=== PATIENT | male | born 1945 | race Caucasian/White ===

== ENCOUNTER 2021-03-10 10:05 | Outpatient (REF) | payer MEDICARE, OTHER, SELFPAY ==
[2021-03-10 12:17] LABS: PSA,Total (Free>4and<10) 1.05 ng/mL (0.00-4.00)
== END 2021-03-10 10:06 | disposition home or self-care (01) ==
LOC: HO.LAB 10:05
PROVIDERS: PCP Internal Medicine; Visit Provider Urology
DX: Z12.5 Encounter for screening for malignant neoplasm of prostate (principal); Z87.898 Personal history of other specified conditions
CPT/HCPCS: 36415; 84153

== ENCOUNTER → 2021-09-01 08:23 | Outpatient (BNVA) | payer MEDICARE, OTHER, SELFPAY | PROVIDERS: PCP Internal Medicine; Visit Provider Urology | DX: N40.1 Benign prostatic hyperplasia with lower urinary tract symptoms (principal); N13.8 Other obstructive and reflux uropathy | CPT/HCPCS: Q3014 ==

== ENCOUNTER 2022-08-27 12:21 | Outpatient (REF) | payer MEDICARE, OTHER, SELFPAY ==
[2022-05-17 07:12] VITALS: BP 116/70; BP 128/70
== END 2022-08-27 12:22 | disposition home or self-care (01) ==
LOC: HO.LAB 12:21
PROVIDERS: PCP Internal Medicine; Visit Provider Urology
DX: Z12.5 Encounter for screening for malignant neoplasm of prostate (principal); N40.1 Benign prostatic hyperplasia with lower urinary tract symptoms; N13.8 Other obstructive and reflux uropathy
CPT/HCPCS: 36415; 84153

== ENCOUNTER → 2022-09-04 10:40 | Outpatient (BNVA) | payer MEDICARE, OTHER, SELFPAY ==
[2022-05-17 07:12] VITALS: BP 116/70; BP 128/70
== END ==
PROVIDERS: PCP Internal Medicine; Visit Provider Urology
DX: N40.1 Benign prostatic hyperplasia with lower urinary tract symptoms (principal); N13.8 Other obstructive and reflux uropathy
CPT/HCPCS: 51798; 99212

== ENCOUNTER → 2022-11-08 10:32 | Outpatient (BNVA) | payer MEDICARE, OTHER, SELFPAY ==
[2022-05-17 07:12] VITALS: BP 116/70; BP 128/70
== END ==
PROVIDERS: PCP Internal Medicine; Visit Provider Urology
DX: N40.1 Benign prostatic hyperplasia with lower urinary tract symptoms (principal); N13.8 Other obstructive and reflux uropathy; R35.1 Nocturia; R97.20 Elevated prostate specific antigen [PSA]
CPT/HCPCS: 52000; 99212

== ENCOUNTER 2023-05-14 13:28 | Outpatient (AMB) | payer MEDICARE, OTHER, SELFPAY ==
[2022-05-17 07:12] VITALS: BP 116/70; BP 128/70
--- NOTE | 2023-05-14 13:38 | A.OFFVIS_ITS ---
Intake Intake Visit Reasons: 6m/PVR Intake Note: Patient is Present for PVR Follow Up. Urology Med: Terazosin Antibiotic Allergy: None Blood Thinner: None PVR: 313 ml [facility] Specialists Required: No Accompanied by: Self / Same As Patient Allergies No Known Allergies Allergy (Verified 05/14/23 13:38) Medication List - Last Reconciled 05/14/23 by John Meyer MD brinzolamide-brimonidine 1-0.2 % (Simbrinza) 0 drps ophthalmic (eye) bupropion HCl 100 mg PO QAM escitalopram oxalate 5 mg PO DAILY escitalopram oxalate mg PO latanoprost 0.005% 1 drp ophthalmic (eye) BEDTIME loteprednol etabonate 0.5% 0 drps ophthalmic (eye) terazosin 5 mg PO BEDTIME 90 days trazodone 50 mg PO BEDTIME HPI HPI Comments History of Present Illness Details Joel is a pleasant male. He is a patient of Dr. Lopez. He is seen for the following urologic conditions - elevated PSA - lower urinary tract symptoms Six month follow-up Has reduced coffee Continues with terazosin 5 mg Lower urinary tract symptoms Voiding progressive weakness of stream and nocturia Good response to terazosin 5 mg Prior therapy tamsulosin 0.4 11/20 cystoscopy small prostate PSA remains low 04/20 1.1, 08/23 1.2 PFSH Social History Patient Tobacco Use Status: Former Tobacco user Tobacco use type: Cigarette Review of Systems Const Denies chills and Denies fever(s) Card Reports no additional complaints and Denies syncope Resp Denies cough GI Denies abdominal pain and Denies heartburn Reports as per HPI and Denies change in libido Neuro Denies syncope Psych Denies change in libido Endo Denies change in libido Physical Exam Const General: cooperative, healthy appearing, comfortable and no acute distress Orientation/consciousness: patient oriented x3 HEENT Face and sinus: Yes normal facial exam Mouth: moist mucous membranes Neck Neck: Yes normal visual inspection, Yes full ROM and Yes trachea midline Chest Chest palpation & inspection: normal inspection of the chest Resp Effort & Inspection: normal respiratory effort, able to speak in complete sentences and no respiratory distress GI Inspection: Yes normal to inspection Back/Spine/Pelvis Cervical Spine: normal cervical lordosis Thoracic/Lumbar Spine: thoracic and lumbar spine normal to inspection Skin General skin exam: no rashes or lesions noted Neuro General: patient oriented x3, gait normal, tone normal and moves all extremities Extrem General: Yes normal to inspection and Yes capillary refill normal Office Procedures Post Void Residual Post Residual Void Post Void Residual (PVR): [id number] Void Residual by ultrasound Assessment & Plan Assessment & Plan (1) Nocturia more than twice per night: Code(s): R35.1 - Nocturia (2) BPH w urinary obs/LUTS: Code(s): N40.1 - Benign prostatic hyperplasia with lower urinary tract symptoms; N13.8 - Other obstructive and reflux uropathy Plan Six month follow-up Orders: Orders AMB Post Void Residual by ultrasound 05/14/23 N39.8 - Other specified disorders of urinary system Medications: Refilled terazosin 5 mg PO BEDTIME 90 caps 1RF 90 days N40.1 - Benign prostatic hyperplasia with lower urinary tract symptoms, N13.8 - Other obstructive and reflux uropathy, R35.0 - Frequency of micturition Patient Instructions: Imaging studies, laboratory and physical exam results were discussed and reviewed in detail. No major barriers to patient understanding were identified. An opportunity to ask questions regarding the treatment plan was provided. All questions were answered. The patient expressed understanding and agreement with the above treatment plan. The patient is aware they should contact our office by phone for worsening of th eir current condition or the appearance of new urologic symptoms. Compliance is encouraged with any medications and followup testing that is ordered. It is a privilege to participate in the urologic care of your patient. If you have any questions or concerns regarding treatment for the above conditions, or other urologic issues, please do not hesitate to contact me. The office telephone contact is [phone]. This note is constructed using voice recognition software. While every effort has been made to ensure accuracy special education coordinator errors may have been included. Yours sincerely, Dr John Meyer MD, [facility] - Urology Providers of Expert, Compassionate Care for the Genitourinary System Coding Level of Care Code Est Pt Level 3 (38905) Diagnoses Nocturia more than twice per night R35.1 BPH w urinary obs/LUTS N40.1; N13.8 CPT Codes Post Residual Void - PVR CPT Code: 67599-Bufw Void Residual by ultrasound ([id number])
== END 2023-05-14 16:17 | disposition home or self-care (01) ==
PROVIDERS: Visit Provider Urology
DX: N40.1 Benign prostatic hyperplasia with lower urinary tract symptoms (principal); R35.1 Nocturia; N13.8 Other obstructive and reflux uropathy
CPT/HCPCS: 99213

== ENCOUNTER → 2023-05-14 13:28 | Outpatient (BNVA) | payer MEDICARE, OTHER, SELFPAY ==
[2022-05-17 07:12] VITALS: BP 116/70; BP 128/70
== END ==
PROVIDERS: Visit Provider Urology
DX: N40.1 Benign prostatic hyperplasia with lower urinary tract symptoms (principal); N13.8 Other obstructive and reflux uropathy; R35.1 Nocturia
CPT/HCPCS: 51798; 99212

== ENCOUNTER 2023-11-13 13:29 | Outpatient (AMB) | payer MEDICARE, OTHER, SELFPAY ==
[2022-05-17 07:12] VITALS: BP 116/70; BP 128/70
--- NOTE | 2023-11-13 14:14 | A.OFFVIS_ITS ---
Intake Visit Reasons: 6M PVR Intake Note: Patient is Present for PVR Follow Up. Urology Med: Terazosin Antibiotic Allergy: None Blood Thinner: None PVR: 0 mL Farm Management Professor Required: No Accompanied by: Self / Same As Patient Allergies No Known Allergies Allergy (Verified 05/14/23 13:38) HPI Comments Details: Joel is a pleasant male. He is a patient of Dr. Lopez. He is seen for the following urologic conditions - elevated PSA - lower urinary tract symptoms Six month follow-up Continue good benefit from terazosin 5 mg Minimal nocturia PVR 0 today 12 month follow-up Lower urinary tract symptoms Voiding progressive weakness of stream and nocturia Good response to terazosin 5 mg Prior therapy tamsulosin 0.4 11/20 cystoscopy small prostate PSA remains low 04/20 1.1, 08/23 1.2 [facility] Social History Patient Tobacco Use Status: Former Tobacco user Tobacco use type: Cigarette Review of Systems Const Denies chills and Denies fever(s) Card Reports no additional complaints and Denies syncope Resp Denies cough GI Denies abdominal pain and Denies heartburn Reports as per HPI and Denies change in libido Neuro Denies syncope Psych Denies change in libido Endo Denies change in libido Physical Exam Const General: cooperative, healthy appearing, comfortable and no acute distress Orientation/consciousness: patient oriented x3 HEENT Face and sinus: Yes normal facial exam Mouth: moist mucous membranes Neck Neck: Yes normal visual inspection, Yes full ROM and Yes trachea midline Chest Chest palpation & inspection: normal inspection of the chest Resp Effort & Inspection: normal respiratory effort, able to speak in complete sentences and no respiratory distress GI Inspection: Yes normal to inspection Back/Spine/Pelvis Cervical Spine: normal cervical lordosis Thoracic/Lumbar Spine: thoracic and lumbar spine normal to inspection Skin General skin exam: no rashes or lesions noted Neuro General: patient oriented x3, gait normal, tone normal and moves all extremities Extrem General: Yes normal to inspection and Yes capillary refill normal Office Procedures Post Void Residual Post Residual Void Post Void Residual (PVR): 0 [id number] Void Residual by ultrasound Assessment & Plan Assessment & Plan (1) BPH w urinary obs/LUTS: Code(s): N40.1 - Benign prostatic hyperplasia with lower urinary tract symptoms; N13.8 - Other obstructive and reflux uropathy Category: Medical (2) Nocturia more than twice per night: Code(s): R35.1 - Nocturia Category: Medical Plan 12 month follow-up PVR Orders: Orders AMB Post Void Residual by ultrasound Today N39.8 - Other specified disorders of urinary system Patient Instructions: Imaging studies, laboratory and physical exam results were discussed and reviewed in detail. No major barriers to patient understanding were identified. An opportunity to ask questions regarding the treatment plan was provided. All questions were answered. The patient expressed understanding and agreement with the above treatment plan. The patient is aware they should contact our office by phone for worsening of their current condition or the appearance of new urologic symptoms. Compliance is encouraged with any medications and followup testing that is ordered. It is a privilege to participate in the urologic care of your patient. If you have any questions or concerns regarding treatment for the above conditions, or other urologic issues, please do not hesitate to contact me. The office telephone contact is [phone]. This note is constructed using voice recognition software. While every effort has been made to ensure accuracy dietitian errors may have been included. Yours sincerely, Dr John Meyer MD, [facility] - Urology Providers of Expert, Compassionate Care for the Genitourinary System Coding Level of Care Code Est Pt Level 3 (59357) Diagnoses BPH w urinary obs/LUTS N40.1; N13.8 Nocturia more than twice per night R35.1 CPT Codes Post Residual Void - PVR CPT Code: 57596-Klqy Void Residual by ultrasound ([id number])
== END 2023-11-13 14:35 | disposition home or self-care (01) ==
PROVIDERS: PCP Internal Medicine; Visit Provider Urology
DX: N40.1 Benign prostatic hyperplasia with lower urinary tract symptoms (principal); N13.8 Other obstructive and reflux uropathy; R35.1 Nocturia
CPT/HCPCS: 99213

== ENCOUNTER → 2023-11-13 13:29 | Outpatient (BNVA) | payer MEDICARE, OTHER, SELFPAY ==
[2022-05-17 07:12] VITALS: BP 116/70; BP 128/70
== END ==
PROVIDERS: PCP Internal Medicine; Visit Provider Urology
DX: N40.1 Benign prostatic hyperplasia with lower urinary tract symptoms (principal); N13.8 Other obstructive and reflux uropathy; R35.1 Nocturia; R97.20 Elevated prostate specific antigen [PSA]; Z79.899 Other long term (current) drug therapy
CPT/HCPCS: 51798; 99212

== ENCOUNTER 2024-08-07 06:23 | Day surgery (SDC) | payer MEDICARE, OTHER, SELFPAY ==
[2022-05-17 07:12] VITALS: BP 116/70; BP 128/70
--- OUTSIDE RECORDS SUMMARY | 2024-07-10 10:22 | XMS_ITS ---
Author Organization [facility] Address [address] [place] [address] Care Team Providers Care Oceanologist Name Role Phone Russell Lopez MD Primary Care Provider Unavail able Amador Bower Unavailable [phone] ALLERGIES Allergen (clinical drug ingredient) Drug/Non Drug Allergy documented on EMR Reaction Allergy Type Onset Date Status opioids (uncoded) Unknown Allergy Ac tive REASON FOR VISIT Patient presents today for a recall colonoscopy MEDICATIONS Medication SIG (Take, Route, Frequency, Duration) Notes Start Date End Date Status Simbrinza 1-0.2 % 1 drop into affected eye Ophthalmic Three times a day Active Escitalopram Oxalate 10 MG Oral for 90 Active traZODone HCl 50 MG TAKE 1 TABLET BY TRINA TH EVERY DAY AT BEDTIME NEEDED 90 DAYS Oral for 90 Active Multivitamin - as directed Orally prn Active ARIPiprazole 10 MG Oral for 90 Active Loteprednol Etabonate 0.5 % Ophthalmic for 37 Active SOCIAL HISTORY Tobacco Use: Social History Observation Description Date Details (start date - stop date) Former Smoker NA - NA Sex Assigned At : Social History Observation Description Sex Assigned At Unknown Tobacco Use/Smoking Question Answer Notes Patient is a former smoker When did you start smoking? teenager years How long has it been since you last smoked? > 10 years Alcohol Screen Question Answer Notes Did you have a drink contain ing alcohol in the past year? Yes How often did you have a dri nk containing alcohol in the past year? 2 to 3 times a week (3 points) How many drinks did you have on a typical day when you were drinking in the past year? 1 or 2 drinks (0 point) How often did you have 6 or more drinks on one occasion in the past year? Never (0 point) Points 3 Interpretation Negative PROBLEMS Problem Type ICD Code Onset Dates Problem Status W/U Status Risk SNOMED Code Notes Problem History of adenomatous polyp of colon (Z86.010) Active confirmed History of adenomatous polyp of colon (284947092) Problem Encounter for other preprocedural examination (Z01.818) Active confirmed Pre-procedure evaluation check (054390909) VITAL SIGNS BMI 22.16 kg/m2 04/02/2024 Blood pressure systolic 00 mm Hg 04/02/20 24 Blood pressure diastolic 00 mm Hg 024 Height 73 in 04/02/2024 Weight 168 lbs 04/02/2024 Encounters Encounter Location Date Provider Diagnosis [facility] [address] [place] [address] 04/02/2024 Amador Bower Encounter for screen ing for malignant neoplasm of colon Z12.11 ; History of adenomatous polyp of colon Z86.010 and Encounter for other preprocedural examination Z01.818 ASSESSMENTS Encounter Date Diagnosis Assessment Notes Treatment Notes Treatment Clinical Notes 04/02/2024 Encounter for screening for malignant neoplasm of colon (ICD-10 - Z12.11) Let me know if the Mannequin Maker wants you to have antibiotics for the colonoscopy 04/02/2024 History of adenomatous polyp of colon (ICD-10 - Z86.010) 04/02/2024 Encounter for other preprocedural examination (ICD-10 - Z01.818) PLAN OF TREATMENT Treatment Notes Assessment Notes Encounter for screening for malignant neoplasm of colon Let me know if the Mannequin Maker wants yo u to have antibiotics for the colonoscopy Future Test Test Name Order Date COLONOSCOPY 04/02/2024 Next Appt Details Follow Up: prn, Reason: Provider Name:Amador Joshi Bower , 08/07/2024 08:30:00 AM, [address] [facility] , [place], [place], [phone], Progress Notes * Examination Category Sub-Category Detail Notes General Examination GENERAL APPEARANCE: pleasant , well nourished, well developed, in no acute distress HEAD: EYES: sclera non-icteric EARS: NOSE: THROAT: NECK/THYROID: no cervical lymphade nopathy, neck supple HEART: S1, S2 normal CHEST: LUNGS: clear to auscultatio n bilaterally ABDOMEN: normal bowel sounds, no guarding or rigidity, no guarding or rigidity, no masses palpable, soft, nontender, nondistended NEUROLOGIC: alert and oriented SKIN: nonjaundiced, no spi messi angiomata EXTREMITIES: no edema PERIPHERAL PULSES: BACK: BREASTS: MUSCULOSKELETAL: MALE GENITOURINARY: LYMPH NODES: RECTAL EXAM: FEMALE GENITOURINARY: ORAL CAVITY: mucosa moist
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
--- OUTSIDE RECORDS SUMMARY | 2024-07-10 10:22 | XMS_ITS ---
Author Organization [facility] Address [address] [place] [phone] Care Team Providers Care Poultry Debeaker Name Role Phone Russell Lopez MD Primary Care Provider Unavail able Amador Bower Unavailable [phone] REASON FOR VISIT no antibiotics Encounters Encounter Location Date Provider Diagnosis [facility] [address] [facility] [address] [place] [phone] 04/14/2024 Amador Bower PLAN OF TREATMENT Next Appt Details Provider Name:Amador Bower , 08/07/2024 08:30:00 AM, [address] [place] [address] , [place], [place], [phone],
--- OUTSIDE RECORDS SUMMARY | 2024-07-10 10:23 | XMS_ITS ---
Author Organization Russell Lopez MD Address [address] [phone] Care Team Providers Care Silk Screen Frame Assembler Name Role Phone Russell Lopez Primary Care Provider REASON FOR VISIT Test results Encounters Encounter Location Date Provider Diagnosis Russell Lopez MD [address] [place] [address] [place] [phone] 01/21/2024 Russell Lopez Plan Of Treatment Next Appt Details Provider Name:Russell Lopez , 07/16/2024 01:30:00 PM, [address] [place] [address], [phone], Provider Name:Russell Lopez , 01/21/2025 01:00:00 PM, [address] [place] [address], [phone], Progress Notes * Joel WHITEDOB:1945 (78 yo M)Acc No.[id number]:01/21/2024 Patient:?CHRISTOPHERJoseJoel :1945???Age:78 Y???Sex:Male Address:[address] [place], [place] [address] [place], [address] * true * Date:? Generated for Dhruv holt/Damien/eTransmitting on:?07/10/2024 10:22 AM EST
--- OUTSIDE RECORDS SUMMARY | 2024-07-10 10:23 | XMS_ITS | Patient Health Record ---
Author Organization [facility] Address [address] [place] [address] [phone] Care Team Providers Care Extract Puller Name Role Phone [facility] Primary Care Provider Allergies Allergen (clinical drug ingredient) Drug/Non Drug Allergy documented on EMR Reaction Allergy Type Onset Date Status Opiates (uncoded) Nausea, Vomiting Allergy Active Results Component Value Reference Range Notes Urinalysis, Complete-[id number] Reviewed date:01/21/2024 08:28:55 AM Interpretation: Performing Lab:[facility] [place], [facility] [place], [place], Phone - [phone], Director - [employer] Notes/Report: Specific [place] 1.018 1.005-1.030 pH 6.0 5.0-7.5 Urine-Color Yellow Yellow Appearance Clear Clear WBC Esterase Negative Negative Protein Negative Negative/Trace Glucose Negative Negative Ketones Negative Negative Occult Blood Negative Negative Bilirubin Negative Negative Urobilinogen,Semi-Qn 0.2 0.2-1.0 mg/dL Nitrite, Urine Negative Negative Microscopic Examination Micr oscopic follows if indicated. Microscopic Examination See below: Micr oscopic was indicated and was performed. WBC None seen 0 - 5 /hpf RBC 0-2 0 - 2 /hpf Epithelial Cells (non renal) None seen 0 - 10 /hpf Casts None seen None seen /lpf Bacteria None seen None seen/Few CBC With Differential/Platel et-[id number] Reviewed date:01/21/2024 08:28:55 AM Interpretation: Performing Lab:[facility] [place], [address] [place], [place], Phone - [phone], Director - [employer] Notes/Report: WBC 6.0 3.4-10.8 x10E3/uL RBC 3.69 4.14-5.80 x10E6/uL Hemoglobin 12.5 13.0-17.7 g/dL Hematocrit 37.6 37.5-51.0 % MCV 102 79-97 fL MCH 33.9 26.6-33.0 pg MCHC 33.2 31.5-35.7 g/dL RDW 12.4 11.6-15.4 % Platelets 197 150-450 x10E3/uL Neutrophils 63 Not Estab. % Lymphs 24 Not Estab. % Monocytes 9 Not Estab. % Eos 3 Not Estab. % Basos 1 Not Estab. % Neutrophils (Absolute) 3.8 1.4-7.0 x10E3/uL Lymphs (Absolute) 1.5 0.7-3.1 x10E3/uL Monocytes(Absolute) 0.6 0.1-0.9 x10E3/uL Eos (Absolute) 0.2 0.0-0.4 x10E3/uL Baso (Absolute) 0.1 0.0-0.2 x10E3/uL Immature Granulocytes 0 Not Estab. % Immature Grans (Abs) 0.0 0.0-0.1 x10E3/uL Prostate-Specific Ag-[id number] Reviewed date:01/21/2024 08:28:55 AM Interpretation: Performing Lab:[facility] [place], [address] [place] [address], Phone - [phone], Director - [facility] Notes/Report: Prostate Specific Ag 1.6 0.0-4.0 ng/mL Nav ECLIA methodology. . According to the [place] [employer], Serum PSA should decrease and remain at undetectable levels after radical prostatectomy. The AUA defines biochemical recurrence as an initial PSA value 0.2 ng/mL or greater followed by a subsequent confirmatory PSA value 0.2 ng/mL or greater. Values obtained with different assay methods or kits cannot be used interchangeably. Results cannot be interpreted as absolute evidence of the presence or absence of malignant disease. Vitamin D, 43-Naqnrdb-[id number] Reviewed date:01/21/2024 08:28:55 AM Interpretation: Performing Lab:[facility] [place], [address] [facility], Phone - [phone], Director - MDJodry Notes/Report: Vitamin D, 25-Hydroxy 47.6 30.0-100.0 ng/mL Vitamin D deficiency has been defined by the [place] [employer] and an Endocrine Society practice guideline as a level of serum 25-OH vitamin D less than 20 ng/mL (1,2). The Endocrine Society went on to further define vitamin D insufficiency as a level between 21 and 29 ng/mL (2). 1. IOM ([place] [employer]). 2010. Dietary reference intakes for calcium and D. [place]: The National Academies Press. 2. Tommie MF, Neelima JOYNER, Etelvina REAVES, et al. Evaluation, treatment, and prevention of vitamin D deficiency: an Endocrine Society clinical practice guideline. JCEM. 2010; 96(7):1911-30. Varicella-Zoster V Ab, IgG-0 96603 Reviewed date:01/21/2024 08:28:54 AM Interpretation: Performing Lab:[facility], [address] [place] [address], Phone - [phone], Director - MDDididry Notes/Report: Varicella Zoster IgG 3575 Immune >165 index Negative <135 Equivocal 135 - 165 Positive >165 A positive result generally indicates exposure to the pathogen or administration of specific immunoglobulins, but it is not indication of active infection or stage of disease. B-Type Natriuretic Peptide-1 79965 Reviewed date:01/21/2024 08:28:55 AM Interpretation: Performing Lab:[facility], [address] [place] [address], Phone - [phone], Director - [employer] Notes/Report: B-Type Natriuretic Peptide 100.0 0.0-100.0 pg/m L Siemens ADVIA Centaur XP methodology Comp. Metabolic Panel (14)-3 Reviewed date:01/21/2024 08:28:55 AM Interpretation: Performing Lab:[facility] [place], [address] [place] [address], Phone - [phone], Director - MDJodry Notes/Report: Glucose 88 70-99 mg/dL BUN 20 8-27 mg/dL Creatinine 0.96 0.76-1.27 mg/dL eGFR 81 >59 mL/min/1.73 BUN/Creatinine Ratio 21 10-24 Sodium 142 134-144 mmol/L Potassium 4.5 3.5-5.2 mmol/L Chloride 102 96-106 mmol/L Carbon Dioxide, Total 22 20-29 mmol/L Calcium 9.4 8.6-10.2 mg/dL Protein, Total 7.2 6.0-8.5 g/dL Albumin 4.2 3.8-4.8 g/dL Globulin, Total 3.0 1.5-4.5 g/dL Bilirubin, Total 0.5 0.0-1.2 mg/dL Alkaline Phosphatase 96 44-121 IU/L AST (SGOT) 24 0-40 IU/L ALT (SGPT) 19 0-44 IU/L LP+Non-HDL Cholesterol-21885 5 Reviewed date:01/21/2024 08:28:55 AM Interpretation: Performing Lab:[facility] [address] [place] [address], Phone - [phone], Director - [employer] Notes/Report: Cholesterol, Total 142 100-199 mg/dL Triglycerides 69 0-149 mg/dL HDL Cholesterol 51 >39 mg/dL VLDL Cholesterol Jordan 14 5-40 mg/dL LDL Chol Calc (NIH) 77 0-99 mg/dL Non-HDL Cholesterol 91 0-129 mg/dL HCV Antibody-[id number] Reviewed date:01/21/2024 08:28:55 AM Interpretation: Performing Lab:[facility] [address] [place] [address], Phone - [phone], Director Primo Peck Notes/Report: Hep C Virus Ab Non Reactive Non Reactive HCV antibody alone does not differentiate between previously resolved infection and active infection. Equivocal and Reactive HCV antibody results should be followed up with an HCV RNA test to support the diagnosis of active HCV infection. PDF Report Reviewed date:01/21/2024 08:28:55 AM Interpretation: Performing Lab:[facility] [address] [place] [address], Phone - [phone], Director Primo Peck Notes/Report: PDF Report Reviewed date:10/25/2023 08:38:58 AM Interpretation: Performing Lab:[facility] [place] [address] [place] [address], Phone - [phone], Director Primo Peck Notes/Report: PDF Report Reviewed date:01/21/2024 08:28:54 AM Interpretation: Performing Lab:[facility] [place] [address] [place] [address], Phone - [phone], Director Primo Peck Notes/Report: CBC With Differential/Platel et-[id number] Reviewed date:10/25/2023 08:38:58 AM Interpretation: Performing Lab:[facility] [place], [address] [facility], [place], Phone - [phone], Director - [employer] Notes/Report: WBC 8.9 3.4-10.8 x10E3/uL RBC 3.68 4.14-5.80 x10E6/uL Hemoglobin 12.3 13.0-17.7 g/dL Hematocrit 37.1 37.5-51.0 % MCV 101 79-97 fL MCH 33.4 26.6-33.0 pg MCHC 33.2 31.5-35.7 g/dL RDW 12.7 11.6-15.4 % Platelets 207 150-450 x10E3/uL Neutrophils 62 Not Estab. % Lymphs 22 Not Estab. % Monocytes 12 Not Estab. % Eos 2 Not Estab. % Basos 1 Not Estab. % Neutrophils (Absolute) 5.6 1.4-7.0 x10E3/uL Lymphs (Absolute) 2.0 0.7-3.1 x10E3/uL Monocytes(Absolute) 1.0 0.1-0.9 x10E3/uL Eos (Absolute) 0.2 0.0-0.4 x10E3/uL Baso (Absolute) 0.1 0.0-0.2 x10E3/uL Immature Granulocytes 1 Not Estab. % Immature Grans (Abs) 0.0 0.0-0.1 x10E3/uL Vitamin D, 84-Vyrvrlo-[id number] Reviewed date:10/25/2023 08:38:58 AM Interpretation: Performing Lab:[facility] [place], [address] [facility], [place], Phone - [phone], Director - [employer] Notes/Report: Vitamin D, 25-Hydroxy 34.9 30.0-100.0 ng/mL Vitamin D deficiency has been defined by the [place] [employer] and an Endocrine Society practice guideline as a level of serum 25-OH vitamin D less than 20 ng/mL (1,2). The Endocrine Society went on to further define vitamin D insufficiency as a level between 21 and 29 ng/mL (2). 1. IOM ([place] [employer]). 2010. Dietary reference intakes for calcium and D. [place]: The National Academies Press. 2. Tommie DILLON, Neelima [place], Etelvina REAVES, et al. Evaluation, treatment, and prevention of vitamin D deficiency: an Endocrine Society clinical practice guideline. JCEM. 2010; 96(7):1911-30. PDF Report Reviewed date:01/21/2024 08:28:54 AM Interpretation: Performing Lab:[facility] [place], [address] [place] [address], Phone - [phone], Director - [facility] Notes/Report: Iron and TIBC-[id number] Reviewed date:10/25/2023 08:38:57 AM Interpretation: Performing Lab:[facility] [place], [address] [place] [address], Phone - [phone], Director - [facility] Notes/Report: Iron Bind.Cap.(TIBC) 283 250-450 ug/dL UIBC 245 111-343 ug/dL Iron 38 38-169 ug/dL Iron Saturation 13 15-55 % Vitamin [id number] Reviewed date:10/25/2023 08:38:58 AM Interpretation: Performing Lab:[facility] [place], [address] [place] [address], Phone - [phone], Director - [facility] Notes/Report: Vitamin B12 837 005-9760 pg/mL Haptoglobin-[id number] Reviewed date:10/25/2023 08:38:58 AM Interpretation: Performing Lab:[facility] [place], [address] [place] [address], Phone - [phone], Director - [facility] Notes/Report: Haptoglobin 194 34-355 mg/dL Immunofixation, Serum-[id number] Reviewed date:10/25/2023 08:38:58 AM Interpretation: Performing Lab:[facility] [place], [address] [place] [address], Phone - [phone], Director - [facility] Notes/Report: Immunofixation Result, Serum Polyclonal increase detected in one or more immunoglobulins. Immunoglobulin G, Qn, Serum 1221 514-0732 mg/d L Immunoglobulin A, Qn, Serum 495 61-437 mg/dL Immunoglobulin M, Qn, Serum 101 15-143 mg/dL Folate (Folic Acid), Serum-0 13742 Reviewed date:10/25/2023 08:38:58 AM Interpretation: Performing Lab:[facility] [place], Phone - [phone], Director [facility] Notes/Report: Folate (Folic Acid), Serum 9.5 >3.0 ng/mL A serum folate concentration of less than 3.1 ng/mL is considered to represent clinical deficiency. Ferritin-047645 Reviewed date:10/25/2023 08:38:58 AM Interpretation: Performing Lab:[facility], Phone - [phone], [facility] Notes/Report: Ferritin 163 30-400 ng/mL Reticulocyte Count-[id number] Reviewed date:10/25/2023 08:38:58 AM Interpretation: Performing Lab:[facility], Phone - [phone], [facility] Notes/Report: Reticulocyte Count 1.6 0.6-2.6 % B-Type Natriuretic Peptide-1 31942 Reviewed date:10/25/2023 08:38:58 AM Interpretation: Performing Lab:[address], Phone - [phone], [facility] Notes/Report: B-Type Natriuretic Peptide 112.7 0.0-100.0 pg/m L Siemens ADVIA Centaur XP methodology Comp. Metabolic Panel (14)-3 73725 Reviewed date:10/25/2023 08:38:58 AM Interpretation: Performing Lab:[facility] [address], Phone - [phone], [facility] Notes/Report: Glucose 92 70-99 mg/dL BUN 23 8-27 mg/dL Creatinine 0.93 0.76-1.27 mg/dL eGFR 85 >59 mL/min/1.73 BUN/Creatinine Ratio 25 10-24 Sodium 141 134-144 mmol/L Potassium 4.5 3.5-5.2 mmol/L Chloride 102 96-106 mmol/L Carbon Dioxide, Total 25 20-29 mmol/L Calcium 9.1 8.6-10.2 mg/dL Protein, Total 7.2 6.0-8.5 g/dL Albumin 4.2 3.8-4.8 g/dL Globulin, Total 3.0 1.5-4.5 g/dL A/G Ratio 1.4 1.2-2.2 Bilirubin, Total 0.5 0.0-1.2 mg/dL Alkaline Phosphatase 83 44-121 IU/L AST (SGOT) 21 0-40 IU/L ALT (SGPT) 16 0-44 IU/L LP+Non-HDL Cholesterol-54939 5 Reviewed date:10/25/2023 08:38:58 AM Interpretation: Performing Lab:[facility] [place], [address], [place], Phone - [phone], Director - [employer] Notes/Report: Cholesterol, Total 144 100-199 mg/dL Triglycerides 117 0-149 mg/dL HDL Cholesterol 55 >39 mg/dL VLDL Cholesterol Jordan 21 5-40 mg/dL LDL Chol Calc ([facility]) 68 0-99 mg/dL Non-HDL Cholesterol 89 0-129 mg/dL Reason For Referral No Information Medications Medication SIG (Take, Route, Frequency, Duration) Notes Start Date End Date Status traZODone HCl 50 MG TAKE 1 TABLET BY TRINA TH EVERY DAY AT BEDTIME PRN for 90 days Active Latanoprost 0.005 % PLACE 1 DROP INTO TH E LEFT EYE NIGHTLY AT BEDTIME. Ophthalmic for 90 Unknown Aspirin 81 81 MG 1 tablet Orally Once a day Active Metoprolol Tartrate 25 MG 1 tablet with food Orally Twice a day Unknown ARIPiprazole 10 MG TAKE 1 TABLET BY TRINA TH EVERY DAY for 90 Active [facility] Formula - as directed Orally Active Loteprednol Etabonate 0.5 % INSTILL 1 DROP INTO EACH EYE DAILY. Ophthalmic for 37 Active Escitalopram Oxalate 10 MG TAKE 1 TABLET BY MOUTH EVERY DAY FOR 30 DAYS for 90 Active Omeprazole 20 MG TAKE 1 CAPSULE BY MO [facility] 30 MINUTES BEFORE THE MORNING MEAL for 90 Not-Taking Simbrinza 1-0.2 % PLACE 1 DROP INTO TH E LEFT EYE 2 (TWO) TIMES A DAY. Ophthalmic for 60 Active Ferrous Sulfate 325 (65 Fe) MG 1 tablet Orally Once a day for 30 day(s) 03/15/2022 Active Tamsulosin HCl 0.4 MG TAKE ONE CAPSULE B Y MOUTH ONCE DAILY for 90 Active Immunizations Vaccine Route Administration Date Status Comme nts *Influenza, High Dose Seasonal, Quadrivatent Unknown 06/17/2022 Administered *Influenza, High Dose Seasonal, Quadrivatent Unknown 04/09/2023 Administered *Pneumococcal polysaccharide PPV23 IM Intramuscular 10/17/2018 Administered *PREVNAR 20 IM Intramuscular 01/16/2024 Administered COVID Spikevax Moderna Unknown 04/09/2023 Administered COVID-19 Moderna BiValent Booster Unknown 06/17/2022 Administered FIISP-19-Xaqrkyh Vaccine Unknown 06/18/2021 Administered MKHBT-36-Ckdiki Vaccine Unknown 09/16/2020 Administered ZEJUK-53-Dvnapq Vaccine Unknown 10/07/2020 Administered Influenza (Fluad) Unknown 03/18/2020 Administered Influenza (Fluad) Unknown 06/18/2021 Administered Influenza (split), 3 yrs and above Unknown 05/17/2017 Administered Influenza (split), 3 yrs and above IM Intramuscular 03/17/2018 Administered Mfd by [employer] Pneumococcal polysaccharide PCV 13 Unknown 05/17/2017 Administered Td (adult) preservative free IM Intramuscular 12/20/2020 Administered Social History Tobacco Use: Social History Observation Description Date Details (start date - stop date) Former Smoker NA - NA AUDIT-C (Standard) Question Answer Notes Did you have a drink contain ing alcohol in the past year? Yes How often did you have six o r more drinks on one occasion in the past year? Never (0 point) How many drinks did you have on a typical day when you were drinking in the past year? 1 or 2 drinks (0 point) How often did you have a dri nk containing alcohol in the past year? 2 to 4 times a month (2 points) Points 2 Interpretation Negative Tobacco Control (Standard) Question Answer Notes Tobacco use: Former smoker How long has it been since you last smoked? 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 Problem Sensorineural hearing loss of bilateral ears (disorder) (584442079) Sensorineural hearing loss, bilateral (H90.3) Active confirmed Problem Complete atrioventricular block (10629197) Atrioventricular block, complete (I44.2) Active confirmed Problem Chronic diastolic heart failure (699776442) Chronic diastolic (congestive) heart failure (I50.32) Active confirmed Problem Gastro-esophageal reflux disease without esophagitis (622954460) Gastro-esophageal reflux disease without esophagitis (K21.9) Active confirmed Problem Chondromalacia of patella (91706659) Chondromalacia patellae, 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) Active confirmed Problem Congenital stenosis of aortic valve (53783805) 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) Active confirmed Problem History of polyp of colon (situation) (156832359) Personal history of colonic polyps (Z86.010) Active confirmed Problem Corneal transplant (57879714) Corneal transplant status (Z94.7) Active confirmed Problem Cardiac pacemaker in situ (079383965) Presence of cardiac pacemaker (Z95.0) Active confirmed Problem Finding of hearing aid (462214406) Presence of external hearing-aid (Z97.4) Active confirmed Problem Benign prostatic hypertrophy without outflow obstruction (859215698) Benign prostatic hyperplasia without lower urinary tract symptoms (N40.0) Active confirmed Vital Signs Heart Rate 67 /min 01/16/2024 Temperature 96.9 degrees Fahrenheit 01/16/2024 Respiratory Rate 98 /min 10/10/2023 Oximetry 98 % 01/16/2024 Blood pressure diastolic 60 mm Hg 01/16/2024 Height 71 in 01/16/2024 Blood pressure systolic 114 mm Hg 01/16/2024 Weight 163.6 lbs 01/16/2024 BMI 22.82 kg/m2 01/16/2024 Encounters Encounter Location Date Provider Diagnosis Russell Lopez MD [address] [id number] 10/10/2023 Russell Lopez Major depressive disorder, single episode, moderate F32.1 ; Chronic diastolic (congestive) heart failure I50.32 ; Mixed hyperlipidemia E78.2 ; Vitamin D deficiency, unspecified E55.9 ; Anemia, unspecified D64.9 and Upper abdominal pain, unspecified R10.10 Russell Lopez MD [address] [id number] 01/16/2024 Russell Lopez Major depressive disorder, single episode, moderate F32.1 ; Encounter for general adult medical examination without abnormal findings Z00.00 ; Chronic diastolic (congestive) heart failure I50.32 ; Mixed hyperlipidemia E78.2 ; Atrioventricular block, complete I44.2 ; Presence of cardiac pacemaker Z95.0 ; Corneal transplant status Z94.7 ; Personal history of colonic polyps Z86.010 ; Vitamin D deficiency, unspecified E55.9 ; Encounter for screening for malignant neoplasm of colon Z12.11 ; Encounter for screening for malignant neoplasm of prostate Z12.5 ; Encounter for screening for cardiovascular disorders Z13.6 ; Encounter for immunization Z23 ; Encounter for antibody response examination Z01.84 ; Encounter for screening for other viral diseases Z11.59 ; Sensorineural hearing loss, bilateral H90.3 and Presence of external hearing-aid Z97.4 Russell Lopez MD [address] [id number] 01/21/2024 Russell Lopez MD [address] [id number] 10/19/2023 Russell Lopez Assessments Encounter Date Diagnosis (ICD Code) Assessment Notes Treatment Notes Treatment Clinical Notes Section Notes 10/10/2023 Major depressive disorder, single episode, moderate (ICD-10 - F32.1) He feels better with current medical therapy. He feels mood is doing well. And continue current therapy. 10/10/2023 Chronic diastolic (congestive) heart failure (ICD-10 - I50.32) He still has some shortness of breath but this has improved after his valve surgery. Some of that may have been due to his anemia. Can recheck for BNP to verify that this is normal. It had been normal in the past but had been slowly increasing. 01/16/2024 Major depressive disorder, single episode, moderate (ICD-10 - F32.1) Stable with current medical therapy. Continue same 01/16/2024 Encounter for general adult medical examination without abnormal findings (ICD-10 - Z00.00) General healthcare up-to-date. Check routine labs. Healthcare proxy and MOST form already on file 01/16/2024 Chronic diastolic (congestive) heart failure (ICD-10 - I50.32) Still at present. He has some fatigue with activity. This may or may not be heart failure related. He does not have coronary disease. Can recheck BNP to verify that this is stable and if it is not then this fatigue may be related to heart failure. 10/10/2023 Mixed hyperlipidemia (ICD-10 - E78.2) Stable on prior labs as reviewed. He does not have any severe coronary artery disease but ideally LDL less than 70 would be preferred 01/16/2024 Mixed hyperlipidemia (ICD-10 - E78.2) Stable on prior labs as reviewed with LDL less than 70. Recheck status 10/10/2023 Vitamin D deficiency, unspecified (ICD-10 - E55.9) Fair control on prior labs as reviewed. He could consider vitamin D supplementation for goal level of 50+ 01/16/2024 Atrioventricular block, complete (ICD-10 - I44.2) Stable and unchanged 10/10/2023 Anemia, unspecified (ICD-10 - D64.9) His perioperative blood loss anemia has improved but his MCV remains elevated. Can recheck combination of therapy for iron deficiency for blood loss anemia as well as B12 and folic acid for the elevated MCV. 10/10/2023 Upper abdominal pain, unspecified (ICD-10 - R10.10) A few days ago he had some abdominal discomfort that he describes along the diaphragm. It eventually subsided. There is no associated symptoms such as nausea vomiting heartburn or diarrhea. He still feels this on occasion when he has a hiccup. This is probably related to a upper GI issue rather than a colon issue. Can consider upper GI series to see if there is a hiatal hernia that may explain this but he would like to hold off and see what happens in terms of his symptoms. 01/16/2024 Presence of cardiac pacemaker (ICD-10 - Z95.0) Stable at present. He does have some fatigue with activity. This may be due to his heart failure versus other etiologies. He does not have coronary disease on prior catheterization therefore it is possible that his pacemaker may need to be reevaluated to see if it has adequate rate increase with activity. He may want to have his pacemaker reprogrammed for a higher rate with activity to see if that helps him feel better. 01/16/2024 Corneal transplant status (ICD-10 - Z94.7) Stable and unchanged at present 01/16/2024 Personal history of colonic polyps (ICD-10 - Z86.010) He is pending consultation and colonoscopy this year 01/16/2024 Vitamin D deficiency, unspecified (ICD-10 - E55.9) Stable on prior labs as reviewed. Continue vitamin D supplementation for goal level of 30+ and if possible 50+ 01/16/2024 Encounter for screening for malignant neoplasm of colon (ICD-10 - Z12.11) Colon cancer screening pending 01/16/2024 Encounter for screening for malignant neoplasm of prostate (ICD-10 - Z12.5) Can check PSA has prostate cancer screening realizing the limitation of this test as a screening test 01/16/2024 Encounter for screening for cardiovascular disorders (ICD-10 - Z13.6) Blood pressure is stable. Can check for comorbidity of hyperlipidemia and hyperglycemia to further assess risk. 01/16/2024 Encounter for immunization (ICD-10 - Z23) Vaccines up to date 01/16/2024 Encounter for antibody response examination (ICD-10 - Z01.84) He would be considered immune to rubeola by virtue of his age. 01/16/2024 Encounter for screening for other viral diseases (ICD-10 - Z11.59) Can screen for hepatitis C as per general recommendation. Of note he thinks he never had chickenpox and it would like to get a shingles vaccine. Can check varicella titer to see if this is necessary. If he is not immune to varicella then he will need a chickenpox vaccine 01/16/2024 Sensorineural hearing loss, bilateral (ICD-10 - H90.3) Stable and unchanged. He continues to use hearing aids 01/16/2024 Presence of external hearing-aid (ICD-10 - Z97.4) Stable and unchanged 10/10/2023 Other This note was created with voice dictation recognition software and may contain errors of grammar and syntax. Also labs were reviewed with patient. 01/16/2024 Other This note was created with voice dictation recognition software and may contain errors of grammar and syntax. Also labs were reviewed with patient. Plan Of Treatment Pending Test Test Name Order Date PFTS with DLCO 06/30/2019 25OH VITAMIN D 01/08/2022 COMPLETE CBC WITH DIFF 01/08/2022 COMPLETE CBC WITH DIFF 02/25/2022 COMPLETE URINALYSIS 01/08/2022 COMPREHENSIVE METABOLIC PANEL 01/08/2022 FERRITIN 02/25/2022 FOLIC ACID 02/25/2022 HAPTOGLOBIN 02/25/2022 HEMOGLOBIN A1C 01/08/2022 IMMUNOFIXATION SERUM 02/25/2022 IRON & TIBC 02/25/2022 LIPID PANEL W REFLEX TO DLDL 01/08/2022 PSA 01/08/2022 RETICULOCYTE COUNT 02/25/2022 VITAMIN B12 02/25/2022 ANTI-HEPATITIS C W/RFLX HCV QNT 01/09/20 Next Appt Details Provider Name:Russell Lopez , 07/16/2024 01:30:00 PM, [address] [place] [address], [phone], Provider Name:Russell Lopez , 01/21/2025 01:00:00 PM, [address] [place] [address], [address], [phone], Insurance Providers Payer Name Payer Address Payer Phone Subscriber Number Group Number Insured Name Patient Relationship to Insured Coverage Start Date Coverage End Date MEDICARE [address] [place] [phone] [id number] Joel Martinez Self - patient is the insured [facility] [address] [place] [address] [id number] Joel Martinez Self - patient is the insured Medical (General) History Medical History History ICD Code Benign prostatic hyperplasia without low er urinary tract symptoms N40.0 Fuchs' heterochromic cyclitis, 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 0 Unspecified fracture of sacrum, initial encounter for closed fracture S32.10XA Surgical History Surgery Date(Month/Year) rotator cuff tear repair, BL Inguinal Hernia Repair, LEFT cataract removal corneal transplant, LT Cardiac Catherization 05/2019 Aortic Valve Replacement, Bioprosthetic 03/2022 Pacemaker 03/2022 Hospitalization History Reason Date(Month/Year) Unstable Angina 05/2019
--- OUTSIDE RECORDS SUMMARY | 2024-07-10 10:23 | XMS_ITS ---
Author Organization Russell Lopez MD Address [address] [phone] Care Team Providers Care Public Transportation Inspector Name Role Phone Russell Lopez Primary Care Provider REASON FOR VISIT Colonoscopy Encounters Encounter Location Date Provider Diagnosis Russell Lopez MD 50 [facility] [address] [place] [phone] 10/19/2023 Russell Lopez Plan Of Treatment Next Appt Details Provider Name:Russell Lopez , 07/16/2024 01:30:00 PM, [address] [place] [address], [phone], Provider Name:Russell Lopez , 01/21/2025 01:00:00 PM, [address] [place] [address], [phone], Progress Notes * Joel WHITEDOB:1945 (78 yo M)Acc No.[id number]:10/19/2023 Patient:?CHRISTOPHERJoseJoel :1945???Age:78 Y???Sex:Male Address:[address] [place], [place] [address], [address] * true * Date:? Generated for Dhruv holt/Damien/eTransmitting on:?07/10/2024 10:23 AM EST
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
--- OUTSIDE RECORDS SUMMARY | 2024-07-10 10:23 | XMS_ITS ---
Author Name [facility] [place] Address [address] [place] [id number] Care Team Providers Care Physician Ophthalmologist Name Role Phone MEGAN LOZANO Primary Care [...] PART B Jul 01, 2011 PART B [id number] MICKY WHITE PATIENT MEDICARE (WNR) MEDICARE (M) PART A Mar 31, 2011 PART A [id number] MICKY WHITE PATIENT UNICARE MEDICAL EXPENSE (OPT/PROF ) [facility] * Jul 01, 2011 [id number] MICKY WHITE PATIENT Selected Encounter This section includes the information on record at [place] for the Encounter. Date/Time Encounter Type Encounter Description Reason Pro vider Source Oct 03, 2023 03:16 PM Outpatient Encounter TELEPHONE PRIMARY CARE IHE Encounter Template Text not used by [facility] Plan of Treatment: Future Appointments (+ 6 months) and Future Tests (+/- 45 days) The Plan of Treatment section includes future care activities for the patient from [facility] [place] [facility] This section includes future appointments and future orders which are active, pending or scheduled. Future Appointments This section includes appointments that were scheduled to occur 6 months from the date of the Encounter, up to a maximum of 20 appointments. The data comes from all [place] treatment facilities. Appointment Date/Time Appointment Type Appointme nt Facility Name Oct 09, 2023 11:00 AM AMBULATORY - [place]ICINE [place] [facility] November 05, 2023 03:00 PM AMBULATORY - MEDICINE [place] [facility] November 12, 2023 04:00 PM AMBULATORY - REHAB MEDICIN E [place] [facility] [place] [facility] Dec 05, 2023 03:00 PM AMBULATORY - REHAB MEDICIN E [place] [facility] [place] [facility] Jan 15, 2024 02:00 PM AMBULATORY - REHAB MEDICIN [place] [facility] [facility] Jan 22, 2024 04:00 PM [facility] [place] [facility] Feb 17, 2024 01:30 PM [facility] Social History: Smoking Status (Most current) and Tobacco Use (All prior to encounter date) This section includes the most current, and the historical, smoking and tobacco- related health factors from the [place] facility where the Encounter took place. Current Smoking Status This section includes the most current smoking, or tobacco-related health factor, from the [place] facility where the Encounter took place. Date/Time Current Smoking Status Comment Diane ity Oct 03, 2023 02:37 PM VA-TOBACCO FORMER USER [facility] Tobacco Use History This section includes a history of the smoking, or tobacco-related health factors, that were collected on or before the date of the Encounter. The data comes from the [place] facility where the Encounter took place. Date/Time Smoking Status/Tobacco Use Comment F acility Oct 03, 2023 02:37 PM VA-TOBACCO QUIT 15 YRS OR MORE [facility] Encounter Notes: All associated encounter notes This section contains the clinical notes associated to the Encounter. Date/Time Encounter Note(s) Provider Source Oct 03, 2023 03:16 PM MEDICATION MGT NOTE: LOCAL TITLE: MEDICATION RECONCILIATION STANDARD TITLE: MEDICATION MGT NOTE DATE OF NOTE: OCT 03, 2023@15:16 ENTRY DATE: OCT 03, 2023@15:16:16 AUTHOR: EZEQUIEL HAYDEN COSIGNER: URGENCY: STATUS: COMPLETED Here is a list of brennan's community providers: 1. Dr Russell Lopez- PCP [address] [facility] [address], [place] [address] Teofilo Redman,- Cardilogist [address] [place], [place] [id number] 3. Dr. Em- Optamologist, Dr. Joy [address] [place] [address] 4. [facility] [address], [place] [address] ======= Brennan has the following Medical Dx: 1. Heart Valve Replacement 2. Macular Degeneration- both eyes 3. Cornea Transplant- L eye 4. Degenerative Arthritis of the Spine 5. Tinnitus- Bilateral 6. Skin Cancer 7. Enlarged Prostate 8. Anxiety 9. Insomnia 10. Gerd ======== Brennan says that he has the following medication allergies: 1. Opiates- N/V ========= F: Medication reconciliation D: Brennan says that he is on the following Medications 1. Simbrinza 2gtts OS Daily 2. Loteprednol 2gtts Daily OS 3. Terazosin 5mg by mouth QHS 4. Escitalopram 10mg by mouth daily 5. Aripipazole 5mg by mouth Daily 6. Trazadone 50mg mouth QHS 7. Omeprazole 20mg by mouth Daily ========= /es/ EZEQUIEL HAYDEN MSN Ed., BSN PHYSICIAN INTERVENTIONAL CARDIOLOGIST NURSE Signed: 10/03/2023 16:32 Receipt Acknowledged By: 10/03/2023 16:33 /es/ MEGAN LOZANO D.O. PHYSICIAN 10/04/2023 08:24 /es/ KATH GARCIA, RN REGISTERED NURSE [facility]
--- OUTSIDE RECORDS SUMMARY | 2024-07-10 10:23 | XMS_ITS ---
Author Name [facility] Address [address] [place] [address] Care Team Providers Care Parks And Recreation Worker Name Role Phone MEGAN BLAND Primary Care Provider Unavailabl e Insurance Providers: [...] PART B Jul 01, 2011 PART B [id number] MICKY WHITE PATIENT MEDICARE (WNR) MEDICARE (M) PART A Mar 31, 2011 PART A [id number] MICKY WHITE PATIENT UNICARE MEDICAL EXPENSE (OPT/PROF ) [facility] * Jul 01, 2011 [id number] MICKY WHITE PATIENT Selected Encounter This section includes the information on record at [place] for the Encounter. Date/Time Encounter Type Encounter Description Reason Pro vider Source Oct 03, 2023 02:37 PM Outpatient Encounter TELEPHONE PRIMARY CARE IHE Encounter Template Text not used by [facility] Plan of Treatment: Future Appointments (+ 6 months) and Future Tests (+/- 45 days) The Plan of Treatment section includes future care activities for the patient from all [place] [facility]. This section includes future appointments and future orders which are active, pending or scheduled. Future Appointments This section includes appointments that were scheduled to occur 6 months from the date of the Encounter, up to a maximum of 20 appointments. The data comes from all [place] treatment facilities. Appointment Date/Time Appointment Type Appointme nt Facility Name Oct 09, 2023 11:00 AM AM[place]ULATORY [place]ICINE [place] [facility] November 05, 2023 03:00 PM AM[place]ULATORY - [place]ICINE [place] [facility] November 12, 2023 04:00 PM AMBULATORY - REHAB MEDICIN E [place] [facility] Dec 05, 2023 03:00 PM AMBULATORY - [place]AB MED[place]IN [place] [facility] Jan 15, 2024 02:00 PM AMBULATORY - [place] [facility] Jan 22, 2024 04:00 PM [facility] [place] [facility] Feb 17, 2024 01:30 PM [facility]UL[facility] Social History: Smoking Status (Most current) and Tobacco Use (All prior to encounter date) This section includes the most current, and the historical, smoking and tobacco- related health factors from the [place] facility where the Encounter took place. Current Smoking Status This section includes the most current smoking, or tobacco-related health factor, from the [place] facility where the Encounter took place. Date/Time Current Smoking Status Comment Diane ity Oct 03, 2023 02:37 PM VA-TOBACCO FORMER USER [facility] Tobacco Use History This section includes a history of the smoking, or tobacco-related health factors, that were collected on or before the date of the Encounter. The data comes from the [place] facility where the Encounter took place. Date/Time Smoking Status/Tobacco Use Comment F acility Oct 03, 2023 02:37 PM VA-TOBACCO QUIT 15 YRS OR MORE [facility] Encounter Notes: All associated encounter notes This section contains the clinical notes associated to the Encounter. Date/Time Encounter Note(s) Provider Source Oct 03, 2023 02:44 PM LETTERS: LOCAL TITLE: PATIENT LETTER (B) STANDARD TITLE: LETTERS DATE OF NOTE: OCT 03, 2023@14:44 ENTRY DATE: OCT 03, 2023@14:44:22 AUTHOR: EZEQUIEL HAYDEN COSIGNER: URGENCY: STATUS[place] [address] [phone] * [phone] Ext [phone] * Date: 10/03/23 Dear : Chyna Thank you for choosing the [facility] ([place]) [facility]. Please be a few minutes early to this appt- about 15 mins. We would like to update your demographic information. To schedule or if you would like more information regarding [place] health care benefits, please call toll free at [phone]), visit the [place] website at [email or web address].gov[place], or contact your local [facility]. Welcome to patient aligned care team (Pact Team Eight) with (Dr. Bland). Prior to meeting you at your new patient appointment we are requesting some of your past medical history so that we may provide you with the exceptional care you deserve. Please note that it is very helpful to have these documents prior to your appointment date as the more information we have the better we will be able to meet your needs: * Last History & Physical * Immunization records * Medication list * Diagnosis list * Most recent labs * Diagnostic screens (Colonoscopy, Abdominal Aortic Aneurysm screen, Mammograms, PAPS, etc.) We have scheduled the following appt with you to see your new PCP: Your appt is scheduled for (10/09/23@1100)- This appt will be about an hour long appt which will give you and your Provider a chance to get to know each other. We have noticed that you are due to receive the following Immunizations: 1. Zoster vaccine- 2 shot series 2. TD/TDAP immunization 3. Pneumococcal PCR 15, & 20 You may either bring your records with you to your scheduled appointment, or drop them off ahead of your appointment or you may have them faxed to ATTN: DANIEL/NO/PACTDavid Bland If you have any questions, please do not hesitate to contact the Department of [place] Affairs call center at Ext [phone]. Just so that you know if you're feeling sick we have sick call hours at the [facility], and the [facility]- Sat thru Saturday 08-1530- first come first serve- walk-in basis. [facility] has sick call hours Sat-Sat- -12, and 3P-4P- first come, first serve, walk-in basis- no appt needed. You can utilize our sick call system once you have seen your Primary Care Physician for the first time. Audiology Phone number- [phone]- Ext [phone] Optometry Phone Number- [phone]- Ext [phone] Mental Health Clinic- [phone] Ext- [phone] Eligibility/Enrollment- [phone]- [phone], or- [phone] Veterans Rep [phone] Ext [phone] [facility] [phone] [place] Transportation [phone] Ext [phone], or,[phone] [place] Act [phone] ( Call within 72hrs of being seen in an acute care setting) Sincerely. [facility] [address] [place] [address] Phone: Ext [phone] Upcoming Appointments: 10/09/23@1100- DANIEL/NO/PVHC-Drhqv-PzcpwhhYaya Hayden MSN Ed., BSN, RN [facility] [address] [id number] [place] [address] - Ext [phone] [facility] [address] [place] [address] [place] [address] EZEQUIEL HAYDEN [place] [facility] [place] [facility] Oct 03, 2023 02:42 PM LETTERS: LOCAL TITLE: PATIENT LETTER (B) STANDARD TITLE: LETTERS DATE OF NOTE: OCT 03, 2023@14:42 ENTRY DATE: OCT 03, 2023@14:43:20 AUTHOR: EZEQUIEL HAYDEN EXP COSIGNER: URGENCY: STATUS: COMPLETED [facility] Outpatient [facility] [address] [facility] [address] * [phone] * Date: 10/03/23 Dear : Chyna Thank you for choosing the [facility] [place]) [facility]. The Whole Health Program aims to support you in pursuing what matters most to you, and includes services that support your values and overall wellness. This includes the following offerings: * Yoga * Acupuncture * [place] Acupuncture for Acute Pain (offered weekly; drop-in or scheduled) * Individual health coaching * Concrete Block Molder * Biofeedback for Hypertension and Anxiety * Guided Imagery Group * Meditation Group * Cancer Support Group * Stress Management Group ( Stress Less ) The following require no referral from a provider, and can be initiated by you at any time: * Yoga * Meditation * [place] Acupuncture * Cancer Support Group * Individual Health Coaching * Stress Management Group ( Stress Less ) If interested in any of the above offerings, please reach out to the Whole Health Team at ext. [phone]. To schedule consult-required services, or if you would like more information regarding [place] health care benefits, please call toll free at [phone]), visit the [place] website at [email or web address], or contact your local [place] Medical Center. If you have any questions, please do not hesitate to contact the [facility] [place] Affairs call center. Sincerely. Dr. Benita [facility] and Integrated Captain Cannery Tender [facility] Direct EZEQUIEL HAYDEN [place] [facility] Oct 03, 2023 02:37 PM PREVENTIVE MEDICINE NURSING NOTE: LOCAL TITLE: CLINICAL REMINDERS/NURSING STANDARD TITLE: PREVENTIVE MEDICINE NURSING NOTE DATE OF NOTE: OCT 03, 2023@14:37 ENTRY DATE: OCT 03, 2023@14:37:49 AUTHOR: EZEQUIEL HAYDEN EXP COSIGNER: URGENCY: STATUS: COMPLETED Advance Directive Screen MH AD: Patient does not have an Advance Directive completed and is requesting more information. The patient received education about Advance Directives and written notification of his/her rights. Vet was sent an advanced directive Depression Screening: Perform PHQ-2 A PHQ-2 screen was performed. The score was 0 which is a negative screen for depression. Over the past two weeks, how often have you been bothered by the following problems? 1. Little interest or pleasure in doing things Not at all 2. Feeling down, depressed, or hopeless Not at all Suicide Screen: C-SSRS Screening [place] Suicide Severity Rating Scale (C-SSRS) screener 1. Over the past month, have you wished you were or wished you could go to sleep and not wake up? No 2. Over the past month, have you had any actual thoughts of killing yourself? No 3. Over the past month, have you been thinking about how you might do this? Response not required due to responses to other questions. 4. Over the past month, have you had these thoughts and had some intention of acting on them? Response not required due to responses to other questions. 5. Over the past month, have you started to work out or worked out the details of how to kill yourself? Response not required due to responses to other questions. 6. If yes, at any time in the past month did you intend to carry out this plan? Response not required due to responses to other questions. 7. In your lifetime, have you ever done anything, started to do anything, or prepared to do anything to end your life (for example, collected pills, obtained a gun, gave away valuables, went to the roof but didn't jump)? No 8. If YES, was this within the past 3 months? Response not required due to responses to other questions. Homelessness/Food Insecurity Screen: In the past 2 months, have you been living in stable housing that you own, rent, or stay in as part of a household? Yes - Living in stable housing. Are you worried or concerned that in the next 2 months you may NOT have stable housing that you own, rent, or stay in as part of a household? No - Not worried about housing near future The [place] reports the following: Within the past 12 months, you worried whether your food would run out before you got money to buy more. Never true Within the past 12 months, the food you bought just didn't last and you didn't have money to get more. Never true Falls & Incontinence Screen: Falls Screen: During the past 12 months, did the patient report any falls? 4. No falls within the past year. Incontinence Screen: During the past 12 months, has the patient has any characteristics of incontinence (ability, voiding, leakage, etc.)? No incontinence. MST Screening: Patient denies experiencing sexual trauma (MST). Preferred Language: What is your, or your caregiver's preferred language for healthcare? Preferred Language: Zimbabwean PTSD Screening: PC-PTSD-5 A PTSD screening test (PC-PTSD-5) was negative (score=0). IN THE PAST MONTH, have you ever had any experience that was so frightening, horrible or traumatic. For example: A serious accident or fire a physical or sexual assault or abuse An earthquake or flood A war Seeing someone be killed or seriously injured Having a loved one through homicide or suicide 1. Have you ever experienced this kind of event? NO 2. Had nightmares about the event(s) or thought about the event(s) when you did not want to? Response not required due to responses to other questions. 3. Tried hard not to think about the event(s) or went out of your way to avoid situations that reminded you of the event(s)? Response not required due to responses to other questions. 4. Been constantly on guard, watchful, or easily startled? Response not required due to responses to other questions. 5. [place] numb or detached from people, activities, or your surroundings? Response not required due to responses to other questions. 6. [place] guilty or unable to stop blaming yourself or others for the event(s) or any problems the event(s) may have caused? Response not required due to responses to other questions. Tobacco Use Screening: The patient is a former tobacco user. The patient quit fifteen or more years ago. Tobacco Pack Year History: Patient used cigarettes in the past, but quit and does not currently use them: Quit smoking GREATER THAN OR EQUAL to 15 years ago. Influenza Immunization: The patient has received the seasonal influenza vaccine for the current season at another location. Documented: INFLUENZA, UNSPECIFIED FORMULATION Historical Date Administered: Mar 2023 Exact date unknown Outside Location: Outside Healthcare Provider Information Source: FROM OTHER REGISTRY Comment: [facility] Alcohol Use Screen (AUDIT-C): Alcohol Screen: SCREEN FOR ALCOHOL (AUDIT-C) An alcohol screening test (AUDIT-C) was negative (score=2). 1. How often did you have a drink containing alcohol in the past year? Consider a drink to be a 12 ounce can or bottle of regular beer, 8 ounces of malt liquor, a 5 ounce glass of table wine, or a 1.5 ounce shot of liquor (like scotch, gin, or vodka). Two to four times a month 2. How many drinks containing alcohol did you have on a typical day when you were drinking in the past year? One or two drinks 3. How often did you have six or more drinks on one occasion in the past year? Never COVID-19 Immunization: Pfizer Patient received a prior dose of the [employer] COVID-19 Vaccine. Documented: COVID-19 (Mavatar), MRNA, LNP-S, PF, 30 MCG/0.3 ML DOSE Historical Date Administered: Sep 16, 2020 Series: Series 1 Psych Arnp: [employer], [employer] Outside Location: Outside Healthcare Provider Information Source: FROM OTHER REGISTRY Comment: Covid Card Patient received a prior dose of the [employer] COVID-19 Vaccine. Documented: COVID-19 (Mavatar), MRNA, LNP-S, PF, 30 MCG/0.3 ML DOSE Historical Date Administered: Oct 07, 2020 Series: Series 2 Psych Arnp: [employer] Outside Location: Outside Healthcare Provider Information Source: FROM OTHER REGISTRY Comment: Covid Card COVID-19 Immunization: Moderna Patient received a prior dose of the Moderna COVID-19 Vaccine. Documented: COVID-19 (MODERNA), MRNA, LNP-S, PF, 100 MCG/0.5ML DOSE OR 50 MCG/0.25ML DOSE Historical Date Administered: Jun 18, 2021 Series: Series 3 Psych Arnp: MODERNA [employer] Outside Location: Outside Healthcare Provider Information Source: FROM OTHER REGISTRY Comment: Covid Card Patient received a prior dose of the Moderna COVID-19 Vaccine. Documented: COVID-19 (MODERNA), MRNA, LNP-S, PF, 100 MCG/0.5ML DOSE OR 50 MCG/0.25ML DOSE Historical Date Administered: Jun 17, 2022 Series: Series 4 Psych Arnp: MODERNA [employer] Outside Location: Outside Healthcare Provider Information Source: FROM OTHER REGISTRY Comment: Covid Card COVID-19 Immunization: Patient received a prior dose of the Moderna Bivalent booster. Documented: COVID-19 (MODERNA), MRNA, LNP-S, BIVALENT, PF, 50 MCG/0.5 ML OR 25MCG/0.25 ML DOSE Historical Date Administered: Apr 09, 2023 Series: Series 5 Psych Arnp: [employer] Outside Location: Outside Healthcare Provider Information Source: FROM OTHER REGISTRY Comment: Ammy Mckeon /aries/ EZEQUIEL HAYDEN MSN Ed., BSN CRUSHER MACHINE OPERATOR NURSE Signed: 10/03/2023 16:33 EZEQUIEL HAYDEN [facility]
--- OUTSIDE RECORDS SUMMARY | 2024-07-10 10:23 | XMS_ITS | Continuity of Care Document ---
Author Name [facility] Organization [facility] Care Team Providers Care Travel Money Advisor Name Role Phone [facility] Unavailable Unavailable Problems Combined list of problems from Department of Defense and Veterans Affairs facilities. It does not include entries that were removed or entered in error. 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 Oct 09, 2023 Entered By: MEGAN LOZANO Comment: aortic valve, needs dental prophylaxis [facility] Insomnia Active Condition [facility] Skin cancer Active Condition Oct 09, 2023 Entered By: MEGAN LOZANO Comment: BCC [facility] 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, 2023 Entered By: KATJA MARTINEZ Comment: L eye [facility] Diagnosis: ICD-10-CM Z46.1 Encounter for fitting and adjustment of hearing aid Active Diagnosis [facility] Diagnosis: ICD-10-CM H90.3 Sensorineural hearing loss, bilateral Active Diagnosis [facility] Diagnosis: ICD-10-CM H90.A22 Snsrnrl hear loss, uni, l ear, with rstrcd hear cntra side Active Diagnosis [facility] Diagnosis: ICD-10-CM Z95.4 Presence of other heart-valve replacement Active Diagnosis [facility] Diagnosis: ICD-10-CM Z02.89 Encounter for other administrative examinations Active Diagnosis [facility] Medications Combined list of outpatient medications from Department of [employer] Br[employer] and Veterans Affairs facilities.Medications provided include 1) outpatient medications from the last 15 months, and 2) patient-reported medications. Medication Details Route Status Patient Instructions Prescription Expires Prescription Number Last Dispense Date Ordering Provider Order Date Order Qty Source ARIPIPRAZOL E TAB TAKE 5MG BY MOUTH ONCE DAILY ORAL ACTIVE FURCOLO,T 2023 [facility] BRIMONIDINE 0.2%/BRINZO LAMIDE 1% SUSP,OPH INSTILL 1 DROP INTO EACH EYE TWICE A WEEK NEEDED OPHTHA LMIC ACTIVE FURCOLO,T 2023 [facility] ESCITALOPRA M OXALATE 20MG TAB TAKE ONE-HALF TABLET BY MOUTH ONCE DAILY ORAL ACTIVE FURCOLO,T 2023 [facility] LOTEPREDNOL ETABONATE 0.2% SUSP,OPH INSTILL 1 DROP INTO EACH EYE TWICE A WEEK NEEDED OPHTHA LMIC ACTIVE FURCOLO,T 2023 [facility] OMEPRAZOLE 20MG CAP,EC TAKE 1 CAPSULE BY MOUTH EVERY MORNING 30 MINUTES BEFORE BREAKFAS T ORAL ACTIVE FURCOLO,T 2023 [facility] TERAZOSIN HCL 5MG CAP TAKE 1 CAPSULE BY MOUTH ONCE DAILY ORAL ACTIVE FURCOLO,T 2023 [facility] TRAZODONE HCL 100MG TAB TAKE ONE-HALF TABLET BY MOUTH AT BEDTIME ORAL ACTIVE FURCOLO,T 2023 [facility] Allergies, Adverse Reactions, Alerts Combined list of allergies from Department of Consumer Br[employer] and Veterans Affairs facilities. It does not include entries that were removed or entered in error. Substance Category Reaction Severity Reaction type Status Date Reported Comments Source OPIOID ANALGESICS Propensity to adverse reactions to drug (finding) Nausea and vomiting active [facility] Immunizations Combined list of available immunizations from the Department of Defense and Veterans Affairs facilities. Immunization Series Date Given Administered By Site Reaction Lot Number CVX Code Drug [facility] Status Comments Source COVID-19 (MODERNA), MRNA, LNP-S, BIVALENT, PF, 50 MCG/0.5 ML OR 25MCG/0.25 ML DOSE 5 2022 229 complet ed Covid Card Mfr: [employer] [facility] [place] [facility] INFLUENZA, UNSPECIFIED FORMULATION 2022 88 complet ed [facility] [place] [facility] COVID-19 (MODERNA), MRNA, LNP-S, PF, 100 MCG/0.5ML DOSE OR 50 MCG/0.25ML DOSE 4 2021 207 complet ed Covid Card Mfr: [employer] [facility] [place] [facility] COVID-19 (MODERNA), MRNA, LNP-S, PF, 100 MCG/0.5ML DOSE OR 50 MCG/0.25ML DOSE 3 2020 207 complet ed Covid Card Mfr: [employer] [facility] [place] [facility] COVID-19 (PFIZER), MRNA, LNP-S, PF, 30 MCG/0.3 ML DOSE 2 2020 208 complet ed Covid Card Mfr: [employer] [facility] [place] [facility] COVID-19 (PFIZER), MRNA, LNP-S, PF, 30 MCG/0.3 ML DOSE 1 2020 208 complet ed Covid Card Mfr: PFIZER, INC [facility] [place] [facility] [employer] [facility] Vital Signs Combined list of inpatient and outpatient Vital Signs from Department of Defense and Veterans Affairs, ranging from 12 months to all on record, depending upon the facility. Vital Sign Value Date Comments Source SYSTOLIC BLOOD PRESSURE 114 11/05/19 24 15:07:37 [facility] DIASTOLIC BLOOD PRESSURE 68 024 15:07:37 [facility] PULSE OXIMETRY 96 11/05/2023 15:07:37 [facility] WEIGHT 167.8 11/05/2023 15:07:37 [facility] BMI 23kg/m2 11/05/2023 15:07:37 [facility] PAIN 0 11/05/2023 15:07:37 [facility] TEMPERATURE 98.4 11/05/2023 15:07:37 [facility] PULSE 76 11/05/2023 15:07:37 [facility] RESPIRATION 16 11/05/2023 15:07:37 [facility] SYSTOLIC BLOOD PRESSURE 121 10/09/19 24 11:09:44 [facility] DIASTOLIC BLOOD PRESSURE 81 024 11:09:44 [facility] PULSE OXIMETRY 96 10/09/2023 11:09:44 [facility] WEIGHT 170 10/09/2023 11:09:44 [facility] BMI 24kg/m2 10/09/2023 11:09:44 [facility] PAIN 2 10/09/2023 11:09:44 [facility] HEIGHT 71 10/09/2023 11:09:44 [facility] TEMPERATURE 98.4 10/09/2023 11:09:44 [facility] PULSE 73 10/09/2023 11:09:44 [facility] RESPIRATION 16 10/09/2023 11:09:44 [facility] Encounters Combined list of: 1) Encounters from Department of Veterans Affairs facilities going back up to thelast 18 months. 2) Encounters from the Department of Defense facilities going back up to 280 months. Location Location Details Encounter Type Encounter Number Reason For Visit Attending Provider ADM Date DC Date Status Disposition Source [facility] Outpatient Encounter [id number] 03/01 [facility] Outpatient Encounter [id number] 04/09 [facility] Outpatient Encounter [id number] Diagnos is: ICD-10- CM Z02.89 Encount er for other adminis trative examina tions<b r/> SALO COMBS 08/21 [facility] Out[facility] Encounter [id number] Diagnos is: ICD-10- CM Z02.89 Encount er for other adminis trative examina tions<b r/> RADHA ABBASI 09/01 [facility] Out[facility] Encounter [id number] 10/02 [facility] Out[facility] Encounter [id number] 10/02 [facility] OFFICE O/P [place] 60 MIN [id number] Diagnos is: ICD-10- CM Z95.4 Presenc e of other heart-v alve replace ment
FURCOLO,TI NA 10/08 [facility] Out[facility] Encounter [id number] 10/08 [facility] OFF/OP CNSLTJ NEW/EST MOD 40 [id number] Diagnos is: ICD-10- CM H90.A22 Snsrnrl hear loss, uni, l ear, with rstrcd hear cntra side
JOE GOMEZ R 11/04 [facility] HEARING AID EXAM BOTH EARS [id number] Diagnos is: ICD-10- CM H90.3 Sensori neural hearing loss, bilater al
SENIOR,HANG OLE L 11/11 [facility] HEARING SERVICE [id number] Diagnos is: ICD-10- CM Z46.1 Encount er for fitting and adjustm ent of hearing aid<br/ > WENDY BINGHAMKaylie DANICA THOMPSON 12/04 [facility] HEARING AID REPAIR/MOD IFYING [id number] Diagnos is: ICD-10- CM Z46.1 Encount er for fitting and adjustm ent of hearing aid<br/ > AD FORD L 01/14 [facility] EAR IMPRESSION [id number] Diagnos is: ICD-10- CM Z46.1 Encount er for fitting and adjustm ent of hearing aid<br/ > SALO COMBS L 01/21 [facility] HEARING AID REPAIR/MOD IFYING [id number] Diagnos is: ICD-10- CM Z46.1 Encount er for fitting and adjustm ent of hearing aid<br/ > SENIOR,HANG OLE L 02/16 [facility] HEARING AID CHECK BOTH EARS [id number] Diagnos is: ICD-10- CM Z46.1 Encount er for fitting and adjustm ent of hearing aid<br/ > AD FORD 05/27 [facility] Social History Combined list of available smoking, tobacco, and other social history from Department of Defense and Veterans Affairs facilities. Social History Type Response Date Comment Sourc e Tobacco smoking status NHIS PA-TOBACCO FORMER USER [facility]03[facility]2023 [facility] of [facility] Plan of Care List of future care activities from Department of Veterans Affairs facilities. Additional future care activities may be listed in the Assessment and Plan section. Date/Time Care Activity Care Activity Detail Facili ty 10/15/2024 AMBULATORY - MEDICINE [facility] 12/29/2024 AMBULAT[facility] - MEDICINE AMBULATORY - MEDICI NE [facility]
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
--- OUTSIDE RECORDS SUMMARY | 2024-07-10 10:23 | XMS_ITS ---
Author Organization [facility] Address [address] [id number] Care Team Providers Care Silverer Name Role Phone Russell Lopez Primary Care Provider [phone] Allergies Allergen (clinical drug ingredient) Drug/Non Drug Allergy documented on EMR Reaction Allergy Type Onset Date Status Opiates (uncoded) Nausea, Vomiting Allergy Active Results Component Value Reference Range Notes HCV Antibody-[id number] Reviewed date:01/21/2024 08:28:55 AM Interpretation: Performing Lab:[facility], [facility] Phone - [phone], Director - [employer] Notes/Report: Hep C Virus Ab Non Reactive Non Reactive HCV antibody alone does not differentiate between previously resolved infection and active infection. Equivocal and Reactive HCV antibody results should be followed up with an HCV RNA test to support the diagnosis of active HCV infection. LP+Non-HDL Cholesterol-[id number] 5 Reviewed date:01/21/2024 08:28:55 AM Interpretation: Performing Lab:[facility], [place], Phone - [phone], Director - [employer] Notes/Report: Cholesterol, Total 142 100-199 mg/dL Triglycerides 69 0-149 mg/dL HDL Cholesterol 51 >39 mg/dL VLDL Cholesterol Jordan 14 5-40 mg/dL LDL Chol Calc ([facility]) 77 0-99 mg/dL Non-HDL Cholesterol 91 0-129 mg/dL Comp. Metabolic Panel (14)-3 Reviewed date:01/21/2024 08:28:55 AM Interpretation: Performing Lab:[facility], [address] [facility], Phone - [phone], Director - [facility] Notes/Report: Glucose 88 70-99 mg/dL BUN 20 [...] 0-40 IU/L ALT (SGPT) 19 0-44 IU/L B-Type Natriuretic Peptide-1 96946 Reviewed date:01/21/2024 08:28:55 AM Interpretation: Performing Lab:[facility] [place], [address] [place] [address], Phone - [phone], Director - [employer] Notes/Report: B-Type Natriuretic Peptide 100.0 0.0-100.0 pg/m L Siemens ADVIA Centaur XP methodology Varicella-Zoster V Ab, IgG-0 52888 Reviewed date:01/21/2024 08:28:54 AM Interpretation: Performing Lab:[facility] [place], Phone - [phone], Director - [employer] Notes/Report: Varicella Zoster IgG 3575 Immune >165 index Negative <135 Equivocal 135 - 165 Positive >165 A positive result generally indicates exposure to the pathogen or administration of specific immunoglobulins, but it is not indication of active infection or stage of disease. Vitamin D, 17-Eltkyxc-198415 Reviewed date:01/21/2024 08:28:55 AM Interpretation: Performing Lab:[facility] [place], Phone - [phone], Director - [employer] Notes/Report: Vitamin D, 25-Hydroxy 47.6 30.0-100.0 ng/mL Vitamin D deficiency has been defined by the [place] of [employer] and an Endocrine Society practice guideline as a level of serum 25-OH vitamin D less than 20 ng/mL (1,2). The Endocrine Society went on to further define vitamin D insufficiency as a level between 21 and 29 ng/mL (2). 1. IOM ([place] of Medicine). 2010. Dietary reference intakes for calcium and D. [place]: The National Academies Press. 2. Tommie MF, Neelima NC, Etelvina REAVES, et al. Evaluation, treatment, and prevention of vitamin D deficiency: an Endocrine Society clinical practice guideline. JCEM. 2010; 96(8):1911-30. Prostate-Specific Ag-540452 Reviewed date:01/21/2024 08:28:55 AM Interpretation: Performing Lab:[facility], [address] [place] [address], Phone - [phone], Director - MDDididry Notes/Report: Prostate Specific Ag 1.6 0.0-4.0 ng/mL Nav ECLIA methodology. . According to the [place] [employer], Serum PSA should decrease and [...] the presence or absence of malignant disease. CBC With Differential/Platel et-[id number] Reviewed date:01/21/2024 08:28:55 AM Interpretation: Performing Lab:[facility] [place], [address] [facility], [place], Phone - [phone], Director - MDJodry Notes/Report: WBC 6.0 3.4-10.8 x10E3/uL RBC 3.69 [...] % Immature Grans (Abs) 0.0 0.0-0.1 x10E3/uL Urinalysis, Complete-[id number] Reviewed date:01/21/2024 08:28:55 AM Interpretation: Performing Lab:[facility], [address] [place] [address], Phone - [phone], Director - MDDididry Notes/Report: Specific [place] 1.018 1.005-1.030 pH 6.0 5.0-7.5 Urine-Color Yellow [...] seen /lpf Bacteria None seen None seen/Few PDF Report Reviewed date:01/21/2024 08:28:55 AM Interpretation: Performing Lab:[facility], [address] [facility], [place], Phone - [phone], Director - MDDididry Notes/Report: REASON FOR VISIT Annual Wellness Medications Medication SIG (Take, Route, Frequency, Duration) Notes Start Date End Date Status Latanoprost 0.005 % PLACE 1 DROP INTO TH E LEFT EYE NIGHTLY AT BEDTIME. Ophthalmic for 90 Unknown Metoprolol Tartrate 25 MG 1 tablet with food Orally Twice a day Unknown traZODone HCl 50 MG TAKE 1 TABLET BY TRINA TH EVERY DAY AT BEDTIME PRN for 90 days Active Escitalopram Oxalate 10 MG TAKE 1 TABLET BY MOUTH EVERY DAY FOR 30 DAYS for 90 Active Omeprazole 20 MG TAKE 1 CAPSULE BY [facility] 30 MINUTES BEFORE THE MORNING MEAL for 90 Not-Taking Loteprednol Etabonate 0.5 % INSTILL 1 DROP INTO EACH EYE DAILY. Ophthalmic for 37 Active ARIPiprazole 10 MG 1 tablet Orally Once a day Active Simbrinza 1-0.2 % PLACE 1 DROP INTO TH E LEFT EYE 2 (TWO) TIMES A DAY. Ophthalmic for 60 Active Ferrous Sulfate 325 (65 Fe) MG 1 tablet Orally Once a day for 30 day(s) 03/15/2022 Active Tamsulosin HCl 0.4 MG TAKE ONE CAPSULE B Y MOUTH ONCE DAILY for 90 Active Aspirin 81 81 MG 1 tablet Orally Once a day Active Ocuvite Eye Health Formula - as directed Orally Active Immunizations Vaccine Route Administration Date Status Comme nts *PREVNAR 20 IM Intramuscular 01/16/2024 Administered Social History Tobacco Use: Social History [...] Problem Status W/U Status Risk Notes Problem Cardiac pacemaker in situ ([id number]) Presence of cardiac pacemaker (Z95.0) Active confirmed Vital Signs Height 71 in 01/16/2024 Weight 163.6 lbs 01/16/2024 BMI 22.82 kg/m2 01/16/2024 Temperature 96.9 degrees Fahrenheit 01/16/20 24 Heart Rate 67 /min 01/16/2024 Oximetry 98 % 01/16/2024 Blood pressure systolic 114 mm Hg 01/16/20 24 Blood pressure diastolic 60 mm Hg 024 Encounters Encounter Location Date Provider Diagnosis Russell Lopez MD [address] [id number] 01/16/2024 Russell John Major depressive disorder, single episode, moderate F32.1 [...] H90.3 and Presence of external hearing-aid Z97.4 Assessments Encounter Date Diagnosis (ICD Code) Assessment Notes Treatment Notes Treatment Clinical Notes Section Notes 01/16/2024 Major depressive disorder, single episode, moderate [...] fatigue may be related to heart failure. 01/16/2024 Mixed hyperlipidemia (ICD-10 - E78.2) Stable on prior labs as reviewed with LDL less than 70. Recheck status 01/16/2024 Atrioventricular block, complete (ICD-10 - I44.2) Stable and unchanged 01/16/2024 Presence of cardiac pacemaker (ICD-10 - [...] hearing-aid (ICD-10 - Z97.4) Stable and unchanged 01/16/2024 Other This note was created with voice dictation recognition software and may contain errors of grammar and syntax. Also labs were reviewed with patient. Plan Of Treatment Next Appt Details Follow Up: 1 Year, Reason: A nnual Provider Name:Russell Lopez , 07/16/2024 01:30:00 PM, [address] [place] [address], [phone], Provider Name:Russell Lopez , 01/21/2025 01:00:00 PM, [address] [facility], [place] [address], [place], [place], [phone], Progress Notes * CHRISTOPHERJose PERKINSmarcelinoDOB:1945 (78 yo M)Acc No.[id number]:01/16/2024 Progress Note Patient:?Joel WHITE Provider:?Russell Lopez MD :1945???Age:78 Y???Sex:Male Gopal e:01/16/2024 Address: [id number] Subjective: * Chief Complaints: * ???Annual Wellness * HPI: ???Depression Screening:?PHQ-2 (2015 Edition)?Little interest or pleasure in doing things??Not at all ?Feeling down, depressed, or hopeless??Not at all ?Total Score?0 ???Medicare Annual Visit:?Type of Visit?-?Subsequent Annual Wellness Visit ?Language or Communication barrier addressed?-?Yes ?Health Risk Assessment?- Do you currently use tobacco products??See Social History ?- How often do you exercise??See Social History ?- In the past two weeks, how often have you felt depressed, down or hopeless??See PHQ2 and PHQ9 ?- How many times have you fallen in your home??Never ?Immunization Status addressed?-?Yes ?Depression Screening?-?PHQ2 done ?Vision Screening?-?Yes, patient sees regular conference planning manager or manager media ?Hearing Screening?-?Yes, uses hearing aids ?Fall Risk and Home Safety?Get Up and Go Evaluation?under 12 seconds ?Medication evaluation and reconcilliation performed?Yes ?Psychosocial Risks?-?No overt psychosocial risks shown, observed, or mentioned ?Behavioral Risks?-?Patient seems very well adjusted and no behavioral issues noted ?Activities of daily living?-?Not impaired ?Cognitive Screening?-?No overt cognitive deficiency is apparent by direct observation * Medical History:? * Surgical History:?rotator cu ff tear repair, BL Inguinal Hernia Repair, LEFT cataract removal corneal transplant, LT Cardiac Catherization 05/2019Aortic Valve Replacement, Bioprosthetic acemaker 03/2022 * Ocular Surgical History:? * Hospitalization/Major Diagno stic Procedure:?Unstable Angina 05/2019 * Family History:?Father: dece ased, Heart.?Mother: , Heart issues.?Son(s): alive 49 yrs, Mental and physical needs.?Children: alive 47 yrs, Healthy.?Siblings: , Unknown.?Paternal aunt: , Lung cancer,dementia.?1 brother(s) . 2 son(s) , 1 daughter(s) . .? * Social History:?Tobacco Use:?Tobacco Control (Standard)?Tobacco use:?Former smoker ?How long has it been since you last smoked??Greater than 10 years ???Drugs/Alcohol:?Drugs?Have you used drugs other than those for medical reasons in the past 12 months??No ?Caffeine?Intake:?2-3 cups per day ?Do you smoke marijuana?: Denies. ?Do you drink alcohol?: Yes, Socially. ???Miscellaneous:?Exercise: no. 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 ???Household:?Household?Marital status:?Drug/Alcohol:?AUDIT-C (Standard)?Did you have a drink containing alcohol in the past year??Yes ?How often did you have six or more drinks on one occasion in the past year??Never (0 point) ?How many drinks did you have on a typical day when you were drinking in the past year??1 or 2 drinks (0 point) ?How often did you have a drink containing alcohol in the past year??2 to 4 times a month (2 points) ?Points?2 ?Interpretation?Negative * Medications:?TakingAspirin 8 1 81 MG Tablet Chewable 1 tablet Orally Once a day Ocuvite Eye Health Formula - Capsule as directed Orally Loteprednol Etabonate 0.5 % Suspension INSTILL 1 DROP INTO EACH EYE DAILY. Ophthalmic Simbrinza 1-0.2 % Suspension PLACE 1 DROP INTO THE LEFT EYE 2 (TWO) TIMES A DAY. Ophthalmic Ferrous Sulfate 325 (65 Fe) MG Tablet 1 tablet Orally Once a day Tamsulosin HCl 0.4 MG Capsule TAKE ONE CAPSULE BY MOUTH ONCE DAILY ARIPiprazole 10 MG Tablet 1 tablet Orally Once a day traZODone HCl 50 MG Tablet TAKE 1 TABLET BY MOUTH EVERY DAY AT BEDTIME PRN Escitalopram Oxalate 10 MG Tablet TAKE 1 TABLET BY MOUTH EVERY DAY FOR 30 DAYS Taking Aspirin 81 81 MG Tablet Chewable 1 tablet Orally Once a day Taking Ocuvite Eye Health Formula - Capsule as directed Orally Taking Loteprednol Etabonate 0.5 % Suspension INSTILL 1 DROP INTO EACH EYE DAILY. Ophthalmic Taking Simbrinza 1-0.2 % Suspension PLACE 1 DROP INTO THE LEFT EYE 2 (TWO) TIMES A DAY. Ophthalmic Taking Ferrous Sulfate 325 (65 Fe) MG Tablet 1 tablet Orally Once a day Taking Tamsulosin HCl 0.4 MG Capsule TAKE ONE CAPSULE BY MOUTH ONCE DAILY Taking ARIPiprazole 10 MG Tablet 1 tablet Orally Once a day Taking traZODone HCl 50 MG Tablet TAKE 1 TABLET BY MOUTH EVERY DAY AT BEDTIME PRN Taking Escitalopram Oxalate 10 MG Tablet TAKE 1 TABLET BY MOUTH EVERY DAY FOR 30 DAYS Not-Taking/PRNOmeprazole 20 MG Capsule Delayed Release TAKE 1 CAPSULE BY MOUTH 30 MINUTES BEFORE THE MORNING MEAL Not-Taking/PRN Omeprazole 20 MG Capsule Delayed Release TAKE 1 CAPSULE BY MOUTH 30 MINUTES BEFORE THE MORNING MEAL UnknownLatanoprost 0.005 % Solution PLACE 1 DROP INTO THE LEFT EYE NIGHTLY AT BEDTIME. Ophthalmic Metoprolol Tartrate 25 MG Tablet 1 tablet with food Orally Twice a day Medication List reviewed and reconciled with the patientUnknown Latanoprost 0.005 % Solution PLACE 1 DROP INTO THE LEFT EYE NIGHTLY AT BEDTIME. Ophthalmic Unknown Metoprolol Tartrate 25 MG Tablet 1 tablet with food Orally Twice a day Medication List reviewed and reconciled with the patient * Allergies:?Opiates: Nausea, Vomitingno[Allergies Verified] Objective: * Vitals:?Temp:96.9F, HR:67/mi n, BP:Sitting Right Arm: 114/60mm Hg, Wt:163.6lbs, BMI:22.82Index, Ht:71in, Oxygen sat %:98%. Past Vitals:* 10/10/2023 Temp:979F, HR:68/min, BP:Sit ting Right Arm: 118/62mm Hg, Wt:173.8lbs, BMI:24.24Index, Ht:71in, RR:98/min * 04/18/2023 Temp:98.3F, HR:79/min, BP: 1 24/80 mm Hg,Sitting Right Arm:118/64mm Hg, Wt:169lbs, BMI:23.57Index, Ht:71in, Oxygen sat %:98% * 01/08/2023 BP:Sitting Right Arm:122/70m m Hg, Wt:163lbs, BMI:22.73Index, Ht:71in * ???Past Orders: ???Lab:CBC With Differential /Platelet-[id number] (Order Date - 10/10/2023) (Collection Date & Time - 10/10/2023 02:56 PM) ? Value Reference Range ?WBC 8.9 3.4-10.8 - x10E 3/uL ?RBC 3.68 L 4.14-5.80 - x10E6/uL ?Hemoglobin 12.3 L 13.0-17.7 - g/dL ?Hematocrit 37.1 L 37.5-51.0 - % ?MCV 101 H 79-97 - fL ?MCH 33.4 H 26.6-33.0 - pg ?MCHC 33.2 31.5-35.7 - g/d L ?RDW 12.7 11.6-15.4 - % ?Platelets 207 150-450 - x10E3/uL ?Neutrophils 62 Not Esta b. - % ?Lymphs 22 Not Estab. - % ?Monocytes 12 Not Estab. - % ?Eos 2 Not Estab. - % ?Basos 1 Not Estab. - % ?Neutrophils (Absolute) 5.6 1.4-7.0 - x10E3/uL ?Lymphs (Absolute) 2.0 0. 7-3.1 - x10E3/uL ?Monocytes(Absolute) 1.0 H 0.1-0.9 - x10E3/uL ?Eos (Absolute) 0.2 0.0-0 .4 - x10E3/uL ?Baso (Absolute) 0.1 0.0- 0.2 - x10E3/uL ?Immature Granulocytes 1 Not Estab. - % ?Immature Grans (Abs) 0.0 0.0-0.1 - x10E3/uL ???Lab:Comp. Metabolic Panel ([id number] (Order Date - 10/10/2023) (Collection Date & Time - 10/10/2023 02:56 PM) ? Value Reference Range ?Glucose 92 70-99 - mg/d L ?BUN 23 8-27 - mg/dL ?Creatinine 0.93 0.76-1.27 - mg/dL ?BUN/Creatinine Ratio 25 H 10-24 - ?Sodium 141 134-144 - mmo l/L ?Potassium 4.5 3.5-5.2 - mmol/L ?Chloride 102 96-106 - mm ol/L ?Carbon Dioxide, Total 25 20-29 - mmol/L ?Calcium 9.1 8.6-10.2 - m g/dL ?Protein, Total 7.2 6.0-8 .5 - g/dL ?Albumin 4.2 3.8-4.8 - g/ dL ?Globulin, Total 3.0 1.5- 4.5 - g/dL ?A/G Ratio 1.4 1.2-2.2 - ?Bilirubin, Total 0.5 0.0 -1.2 - mg/dL ?Alkaline Phosphatase 83 44-121 - IU/L ?AST (SGOT) 21 0-40 - IU /L ?ALT (SGPT) 16 0-44 - IU /L ?eGFR 85 >59 - mL/min/1. 73 ???Lab:B-Type Natriuretic Pe ptide-[id number] (Order Date - 10/10/2023) (Collection Date & Time - 10/10/2023 02:56 PM) ? Value Reference Range ?B-Type Natriuretic Peptide 112.7 H 0.0-100.0 - pg/mL ???Lab:LP+Non-HDL Cholestero l-[id number] (Order Date - 10/10/2023) (Collection Date & Time - 10/10/2023 02:56 PM) ? Value Reference Range ?Cholesterol, Total 144 1 00-199 - mg/dL ?Triglycerides 117 0-149 - mg/dL ?HDL Cholesterol 55 >39 - mg/dL ?VLDL Cholesterol Jordan 21 5-40 - mg/dL ?LDL Chol Calc ([facility]) 68 0-99 - mg/dL ?Non-HDL Cholesterol 89 0-129 - mg/dL ???Lab:Iron and TIBC-[id number] (Order Date - 10/10/2023) (Collection Date & Time - 10/10/2023 02:56 PM) ? Value Reference Range ?Iron Bind.Cap.(TIBC) 283 250-450 - ug/dL ?UIBC 245 111-343 - ug/dL ?Iron 38 38-169 - ug/dL ?Iron Saturation 13 L 15-5 5 - % ???Lab:Folate (Folic Acid), Serum-[id number] (Order Date - 10/10/2023) (Collection Date & Time - 10/10/2023 02:56 PM) ? Value Reference Range ?Folate (Folic Acid), Serum 9.5 >3.0 - ng/mL ???Lab:Ferritin-[id number] (Orde r 10/10/2023) (Collection Date & Time - 10/10/2023 02:56 PM) ? Value Reference Range ?Ferritin 163 30-400 - ng /mL ???Lab:Vitamin [id number] (O rder Date - 10/10/2023) (Collection Date & Time - 10/10/2023 02:56 PM) ? Value Reference Range ?Vitamin B12 158 859-2408 - pg/mL ???Lab:Haptoglobin-[id number] (O rder Date - 10/10/2023) (Collection Date & Time - 10/10/2023 02:56 PM) ? Value Reference Range ?Haptoglobin 194 34-355 - mg/dL ???Lab:Immunofixation, Serum -[id number] (Order Date - 10/10/2023) (Collection Date & Time - 10/10/2023 02:56 PM) ? Value Reference Range ?Immunoglobulin G, Qn, Serum 7307 835-0168 - mg/dL ?Immunoglobulin A, Qn, Serum 495 H 61-437 - mg/dL ?Immunoglobulin M, Qn, Serum 101 15-143 - mg/dL ???Lab:Reticulocyte Count-00 5280 (Order Date - 10/10/2023) (Collection Date & Time - 10/10/2023 02:56 PM) ? Value Reference Range ?Reticulocyte Count 1.6 0 .6-2.6 - % ???Lab:Vitamin D, 25-Hydroxy -[id number] (Order Date - 10/10/2023) (Collection Date & Time - 10/10/2023 02:56 PM) ? Value Reference Range ?Vitamin D, 25-Hydroxy 34.9 30.0-100.0 - ng/mL Lab:PSA * Collection Date 01/10/2023 02/02/2022 12/28/2020 Collection Time 08:55 AM 11:07 AM 12:39 PM Order Date 01/08/2023 02/02/2022 12/20/2020 PSA 1.3 (Ref Range: (0-4) NG/ML) 2.7 (Ref Range: (0-4) NG/ML) 1.0 (Ref Range: (0-4) NG/ML) * Examination: ???General Examination: ?GENERAL APPEARANCE:?Age appropriate, in no acute distress, well developed, well nourished.?HEAD:? atraumatic, normocephalic.?EYES:? sclera anicteric, extraocular movement full and smooth.?HEART:?regular rate and rhythm, S1, S2 normal.?LUNGS:?clear to auscultation bilaterally.?EXTREMITIES:?no clubbing, cyanosis, or edema.?NEUROLOGIC:?alert and oriented, gait normal.?PSYCH:? good eye contact, speech clear.?Mini Cog: ?Word Recall?Word List Version: 5, Score: 3 points.?Clock Draw?Score: 2 points.?Total Score?Score: 5 points.? Assessment: * Assessment: 1.?Major depressive disorder , single episode, moderate - F32.1???2.?Encounter for general adult medical examination without abnormal findings - Z00.00 (Primary)???3.?Chronic diastolic (congestive) heart failure - I50.32???4.?Mixed hyperlipidemia - E78.2???5.?Atrioventricular block, complete - I44.2???6.?Presence of cardiac pacemaker - Z95.0???7.?Corneal transplant status - Z94.7???8.?Personal history of colonic polyps - Z86.010???9. Vitamin D deficiency, unspecified - E55.9???10.?Encounter for screening for malignant neoplasm of colon - Z12.11???11.?Encounter for screening for malignant neoplasm of prostate - Z12.5???12.?Encounter for screening for cardiovascular disorders - Z13.6???13.?Encounter for immunization - Z23???14.?Encounter for antibody response examination - Z01.84???15.?Encounter for screening for other viral diseases - Z11.59???16.?Sensorineural hearing loss, bilateral - H90.3???17.?Presence of external hearing-aid - Z97.4??? Plan: * Treatment: ? Value Reference Range ?WBC 6.0 3.4-10.8 - x10E 3/uL * ?RBC 3.69 L 4.14-5.80 - x10 E6/uL * ?Hemoglobin 12.5 L 13.0-17.7 - g/dL * ?Hematocrit 37.6 37.5-51.0 - % * ?MCV 102 H 79-97 - fL * ?MCH 33.9 H 26.6-33.0 - pg * ?MCHC 33.2 31.5-35.7 - g/d L * ?RDW 12.4 11.6-15.4 - % * ?Platelets 197 150-450 - x10 E3/uL * ?Neutrophils 63 Not Estab. - % * ?Lymphs 24 Not Estab. - % * ?Monocytes 9 Not Estab. - % * ?Eos 3 Not Estab. - % * ?Basos 1 Not Estab. - % * ?Neutrophils (Absolute) 3.8 1.4-7.0 - x10E3/uL * ?Lymphs (Absolute) 1.5 0.7-3 .1 - x10E3/uL * ?Monocytes(Absolute) 0.6 0.1 -0.9 - x10E3/uL * ?Eos (Absolute) 0.2 0.0-0.4 - x10E3/uL * ?Baso (Absolute) 0.1 0.0-0.2 - x10E3/uL * ?Immature Granulocytes 0 N ot Estab. - % * ?Immature Grans (Abs) 0.0 0. 0-0.1 - x10E3/uL * This lab was reviewed by Marques Lopez on 01/21/2024 at 08:28 AM EDT ?LAB: Comp. Metabolic Panel ([id number] (Collection Date & Time - 01/16/2024 11:55 AM)* ? Value Reference Range ?Glucose 88 70-99 - mg/dL * ?BUN 20 8-27 - mg/dL * ?Creatinine 0.96 0.76-1.27 - mg/dL * ?BUN/Creatinine Ratio 21 10 -24 - * ?Sodium 142 134-144 - mmol/ L * ?Potassium 4.5 3.5-5.2 - mmo l/L * ?Chloride 102 96-106 - mmol/ L * ?Carbon Dioxide, Total 22 2 0-29 - mmol/L * ?Calcium 9.4 8.6-10.2 - mg/d L * ?Protein, Total 7.2 6.0-8.5 - g/dL * ?Albumin 4.2 3.8-4.8 - g/dL * ?Globulin, Total 3.0 1.5-4.5 - g/dL * ?Bilirubin, Total 0.5 0.0-1. 2 - mg/dL * ?Alkaline Phosphatase 96 44 -121 - IU/L * ?AST (SGOT) 24 0-40 - IU/L * ?ALT (SGPT) 19 0-44 - IU/L * ?eGFR 81 >59 - mL/min/1. 73 * This lab was reviewed by Marques Lopez on 01/21/2024 at 08:28 AM EDT ?LAB: Urinalysis, Complete-[id number] (Collection Date & Time - 01/16/2024 12:20 PM)* ? Value Reference Range ?Specific [place] 1.018 1.005- 1.030 - * ?pH 6.0 5.0-7.5 - * ?Urine-Color Yellow Yellow - * ?Appearance Clear Clear - * ?WBC Esterase Negative Negative - * ?Protein Negative Negative/Trace - * ?Glucose Negative Negative - * ?Ketones Negative Negative - * ?Occult Blood Negative Negative - * ?Bilirubin Negative Negative - * ?Urobilinogen,Semi-Qn 0.2 0. 2-1.0 - mg/dL * ?Nitrite, Urine Negative Negative - * ?WBC None seen 0 - 5 - /hpf * ?RBC 0-2 0 - 2 - /hpf * ?Epithelial Cells (non renal) None seen 0 - 10 - /hpf * ?Casts None seen None seen - /lp f * ?Bacteria None seen None seen/Few - * ?Microscopic Examination See below: - * This lab was reviewed by Marques Lopez on 01/21/2024 at 08:28 AM EDT Clinical Notes: General healthcare up-to-date. Check routine labs. Healthcare proxy and MOST form already on file??2.?Major depressive disorder, single episode, moderate? Clinical Notes: Stable with current medical therapy. Continue same??3.?Chronic diastolic (congestive) heart failure?LAB: B-Type Natriuretic Peptide-[id number] (Collection Date & Time - 01/16/2024 11:55 AM)* ? Value Reference Range ?B-Type Natriuretic Peptide 100.0 0.0-100.0 - pg/mL * This lab was reviewed by Marques Lopez on 01/21/2024 at 08:28 AM EDT Clinical Notes: Still at present. He has some fatigue with activity. This may or may not be heart failure related. He does not have coronary disease. Can recheck BNP to verify that this is stable andif it is not then this fatigue may be related to heart failure.??4.?Mixed hyperlipidemia?LAB: LP+Non-HDL Cholesterol-[id number] (Collection Date & Time - 01/16/2024 11:55 AM)* ? Value Reference Range ?Cholesterol, Total 142 100- 199 - mg/dL * ?Triglycerides 69 0-149 - m g/dL * ?HDL Cholesterol 51 >39 - m g/dL * ?VLDL Cholesterol Jordan 14 5- 40 - mg/dL * ?LDL Chol Calc ([facility]) 77 0-9 9 - mg/dL * ?Non-HDL Cholesterol 91 0-1 29 - mg/dL * This lab was reviewed by Marques Lopez on 01/21/2024 at 08:28 AM EDT Clinical Notes: Stable on prior labs as reviewed with LDL less than 70. Recheck status??5.?Atrioventricular block, complete? Clinical Notes: Stable and unchanged??6.?Presence of cardiac pacemaker? Clinical Notes: Stable at present. He does have some [...] to see if that helps him feel better.??7.?Corneal transplant status? Clinical Notes: Stable and unchanged at present??8.?Personal history of colonic polyps? Clinical Notes: He is pending consultation and colonoscopy this year??9.?Vitamin D deficiency, unspecified?LAB: Vitamin D, 39-Fucytrd-[id number] (Collection Date & Time - 01/16/2024 11:55 AM)* ? Value Reference Range ?Vitamin D, 25-Hydroxy 47.6 3 0.0-100.0 - ng/mL * This lab was reviewed by Marques Lopez on 01/21/2024 at 08:28 AM EDT Clinical Notes: Stable on prior labs as reviewed. Continue vitamin D supplementation for goal levelof 30+ and if possible 50+??10.?Encounter for screening for malignant neoplasm of colon? Clinical Notes: Colon cancer screening pending??11.?Encounter for screening for malignant neoplasm of prostate?LAB: Prostate-Specific Ag-[id number] (Collection Date & Time - 01/16/2024 11:55 AM)* ? Value Reference Range ?Prostate Specific Ag 1.6 0. 0-4.0 - ng/mL * This lab was reviewed by Marques Lopez on 01/21/2024 at 08:28 AM EDT Clinical Notes: Can check PSA has prostate cancer screening realizing the limitation of this test as a screening test??12.?Encounter for screening for cardiovascular disorders? Clinical Notes: Blood pressure is stable. Can check for comorbidity of hyperlipidemia and hyperglycemia to further assess risk.??13.?Encounter for immunization? Clinical Notes: Vaccines up to date??14.?Encounter for antibody response examination? Clinical Notes: He would be considered immune to rubeola by virtue of his age.?? 15.?Encounter for screening for other viral diseases?LAB: Varicella-Zoster V Ab, [id number] (Collection Date & Time - 01/16/2024 11:55 AM)* ? Value Reference Range ?Varicella Zoster IgG 3575 Im mune >165 - index * This lab was reviewed by Marques Lopez on 01/21/2024 at 08:28 AM EDT ?LAB: HCV [id number] (Collection Date & Time - 01/16/2024 11:55 AM)* ? Value Reference Range ?Hep C Virus Ab Non Reactive Non Reac tive - * This lab was reviewed by Marques Lopez on 01/21/2024 at 08:28 AM EDT Clinical Notes: Can screen for hepatitis C as per general recommendation. Of note he thinks he never had chickenpox and it would like to get a shingles vaccine. Can check varicella titer to see if this is necessary. If he is not immune to varicella then he will need a chickenpox vaccine??16.?Sensorineural hearing loss, bilateral? Clinical Notes: Stable and unchanged. He continues to use hearing aids?? 17.?Presence of external hearing-aid? Clinical Notes: Stable and unchanged??18.?Others? Clinical Notes: This note was created with voice dictation recognition software and may contain errors of grammar and syntax. Also labs were reviewed with patient.?? * Immunizations:? *PREVNAR 20 : 0.5 mL (Route: Intramuscular) given by [facility]ia [facility] on Right Deltoid (Encounter for immunization) ???Immunization record has been reviewed and updated. * Labs:? * ?Lab: PDF Report ([facility] tion Date & Time - 01/16/2024 11:55 AM) * Procedure Codes:?1123F ACP D ISCUSS/DSCN MKR [id number] PCV20 VACCINE IM * Preventive Medicine:? ??YOUR PREVENTIVE WELLNESS PLAN:?Prevnar?The Recommended Frequency is:?1 dose age 65+ ?Abdominal Aortic Aneurysm:?The Recommended Frequency is:?Once, between the age range of 65-75 and for those who have smoked 100+ cigarettes in lifetime ?Colorectal Cancer Screening:?The Recommended Frequency is:?Every 10 years, Colonoscopy, Every 3 years, Cologuard ?Pneumococcal (Pneumonia) Vaccine:?The Recommended Frequency is:?1 dose age 65+ ?Influenza (Flu) Vaccine:?The Recommended Frequency is:?Annually ??Immunizations:?PCV 13 (Prevnar)?Last PCV13 was administered?05/17/2017 ?PPV 23 (pneumococcal)?Last PPV23 was administered?10/17/2018 ?Tetanus?Last Tetanus was administered?12/20/2020 ?COVID?Facs Teacher?[place] ?First Dose?09/16/2020 ?Second Dose?10/07/2020 ??Screenings:?Abdominal Aortic Aneurysm Screening:?Date of most recent screening:?10/29/2018 ?Colon cancer screening?Colorectal screening:?Colonoscopy ?Provider recommendation:?5 years ?Date of most recent screening:?11/17/2018 * Follow Up:?1 Year (Reason: A nnual) * Images: Billing Information: * Visit Code:? G0442 Annual Alcohol Misuse Screening, 15 min. Modifiers: 25 G0444 Annual Depression Screening, 15 min. Modifiers: G0446 Cardiovascular Screening. Modifiers: G0439 Subsequent Annual Wellness. * Procedure Codes:? 1123F ACP DISCUSS/DSCN MKR DOCD. 39036 PCV20 VACCINE IM. * Sign off status: Completed true * Provider:?Russell Lopez MD Date:?01/15 Generated for Dhruv holt/Damien/eTransmitting on:?07/10/2024 10:22 AM EST History and Physical Notes * HPI (History of Present Illness) Category Sub-Category Detail Notes Category Not es Medicare Annual Visit Type of Visit -: Subsequ ent Annual Wellness Visit Language or Communication ba rabia addressed -: Yes Health Risk Assessment - Do you currentl y use tobacco products?: See Social History - How often do you exercise?: See Social History - In the past two weeks, how often have you felt depressed, down or hopeless?: See PHQ2 and PHQ9 - How many times have you fallen in your home?: Never Immunization Status addressed -: Yes Vision Screening -: Yes, patient sees regular conference planning manager or manager media Depression Screening -: PHQ2 done Hearing Screening -: Yes, uses hearing aids Fall Risk and Home Safety Get Up and Go Evaluati on: under 12 seconds Medication evaluation and reconcilliatio n performed: Yes Psychosocial Risks -: No overt psychoso cial risks shown, observed, or mentioned Behavioral Risks -: Patient seems dennis y well adjusted and no behavioral issues noted Activities of daily living -: Not impaired Cognitive Screening -: No overt cognitiv e deficiency is apparent by direct observation Depression Screening PHQ-2 (2015 Edition) Little interest or pleasure in doing things?: Not at all Feeling down, depressed, or hopeless?: N ot at all Total Score: 0 Examination Category Sub-Category Detail Notes Category Not es General Examination GENERAL APPEARANCE: Age appr opriate, in no acute distress, well developed, well nourished HEAD: atraumatic, normocep halic EYES: sclera anicteric, ex traocular movement full and smooth HEART: regular rate and rhy thm, S1, S2 normal LUNGS: clear to auscultatio n bilaterally NEUROLOGIC: alert and oriented, gait normal EXTREMITIES: no clubbing, cyanosi s, or edema PSYCH: good eye contact, sp eech clear Mini Cog Word Recall Word List Version: 5, Score: 3 points Clock Draw Score: 2 points Total Score Score: 5 points
--- OUTSIDE RECORDS SUMMARY | 2024-07-10 10:24 | XMS_ITS | Encounter Summary ---
Author Name [facility] [place] Organization [place] Address [address] [place] [address] Care Team Providers Care It Administrative Assistant Name Role Phone MEGAN LOZANO Primary Care [...] PART B Jul 01, 2011 PART B [id number] MICKY WHITE PATIENT MEDICARE (WNR) MEDICARE (M) PART A Mar 31, 2011 PART A [id number] MICKY WHITE [facility]IENT [facility]OF ) [facility] * Jul 01, 2011 [id number] MICKY WHITE PATIENT Selected Encounter This section includes the information on record at [place] for the Encounter. Date/Time Encounter Type Encounter Description Reason Provider Source Jan 22, 2024 04:00 PM EAR IMPRESSION AUDIOLOGY ICD-10-CM Z46.1 Encounter for fitting and adjustment of hearing aid LAMONT COMBS Encounter Template Text not used by [facility] Assessments - Encounter Diagnoses This section includes the primary and secondary diagnoses documented for the Encounter. Date/Time Primary/Secondary Diagnosis Diagnosis Name Provider Source Jan 22, 2024 04:07 PM PRIMARY Encounter for fitting and adjustment of hearing aid RUPERT COMBS Pk [facility] Jan 22, 2024 04:07 PM SECONDARY Sensorineural hearing loss, bilateral RUPERT COMBS [facility] Plan of Treatment: Future Appointments (+ 6 months) and Future Tests (+/- 45 days) The Plan of Treatment section includes future care activities for the patient from all [place] [facility]. This section includes future appointments and future orders which are active, pending or scheduled. Future Appointments This section includes appointments that were scheduled to occur 6 months from the date of the Encounter, up to a maximum of 20 appointments. The data comes from all [place] treatment facilities. Appointment Date/Time Appointment Type Appointme nt Facility Name Feb 17, 2024 01:30 PM AMBULATORY - REHAB MEDICIN E [facility] May 27, 2024 02:30 PM AMBULATORY - REHAB MEDICIN E [facility] Social History: Smoking Status (Most current) and Tobacco Use (All prior to encounter date) This section includes the most current, and the historical, smoking and tobacco- related health factors from the [place] facility where the Encounter took place. Current Smoking Status This section includes the most current smoking, or tobacco-related health factor, from the [place] facility where the Encounter took place. Date/Time Current Smoking Status Comment Diane briggs Oct 03, 2023 02:37 PM VA-TOBACCO FORMER USER [facility] Tobacco Use History This section includes a history of the smoking, or tobacco-related health factors, that were collected on or before the date of the Encounter. The data comes from the [place] facility where the Encounter took place. Date/Time Smoking Status/Tobacco Use Comment Tashia acdavid Oct 03, 2023 02:37 PM [place]-TOBACCO QUIT 15 YRS OR MORE [facility] Encounter Notes: All associated encounter notes This section contains the clinical notes associated to the Encounter. Date/Time Encounter Note(s) Provider Source Feb 05, 2024 04:56 PM ADDENDUM: LOCAL TITLE: Addendum STANDARD TITLE: ADDENDUM DATE OF NOTE: FEB 05, 2024@16:56:03 ENTRY DATE: FEB 05, 2024@16:56:04 AUTHOR: JUANPABLO FORD COSIGNER: URGENCY: STATUS: COMPLETED Earmold recieved and certified. Alerting [facility] to call to schedule 30 min with HT or Grain Elevator Superintendent for fit check of new mold. /NATALY Amaya CHIEF, AUDIOLOGY/ENT NURSE Signed: 02/05/2024 16:56 Receipt Acknowledged By: 02/06/2024 09:00 /aries/ WOODY JACOBS LEAD MANAGER UROLOGY === --- Original Document --- 01/22/24 AUDIOLOGY CLINIC: Dx: Sensorineural hearing loss, bilateral [place] was seen today for a hearing aid follow-up appointment. He was accompanied by his given his verbal permission. He was issued bilateral Oticon Intent mini [facility] hearing aids on 12/05/23. [place] reports he continues to get discomfort from the left earmold. A new left ear impression was taken without incident given 's verbal consent. A new left ANTIONETTE canal lock earmold will be ordered in silicone material. Once the new earmold is received, can be contacted to schedule a 30-minute HA or health [facility] appointment to have the new earmold attached and to assess fit. /aries/ Kan Zhou CCC-A Grain Elevator Superintendent Signed: 01/22/2024 16:14 02/06/2024 ADDENDUM STATUS: UNSIGNED You may not VIEW this UNSIGNED Addendum. JUANPABLO FORD [facility] [place] [facility] Jan 22, 2024 04:05 PM AUDIOLOGY E & M NO TE: LOCAL TITLE: AUDIOLOGY CLINIC STANDARD TITLE: AUDIOLOGY E & M NOTE DATE OF NOTE: JAN 22, 2024@16:05 ENTRY DATE: JAN 22, 2024@16:05:26 AUTHOR: LAMONT COMBS COSIGNER: URGENCY: STATUS: COMPLETED AUDIOLOGY CLINIC Has ADDENDA Dx: Sensorineural hearing loss, bilateral was seen today for a hearing aid follow-up appointment. He was accompanied by his given his verbal permission. He was issued bilateral Oticon Intent mini [facility] hearing aids on 12/05/23. [place] reports he continues to get discomfort from the left earmold. A new left ear impression was taken without incident given 's verbal consent. A new left ANTIONETTE canal lock earmold will be ordered in silicone material. Once the new earmold is received, can be contacted to schedule a 30-minute HA or health [facility] appointment to have the new earmold attached and to assess fit. /aries/ Kan Zhou CCC-A Grain Elevator Superintendent Signed: 01/22/2024 16:14 02/05/2024 ADDENDUM STATUS: COMPLETED Earmold recieved and certified. [facility]ing [facility] to call to schedule 30 min with HT or Grain Elevator Superintendent for fit check of new mold. /aries/ JUANPABLO Constantino CCC-A CHIEF, AUDIOLOGY/ENT NURSE Signed: 02/05/2024 16:56 Receipt Acknowledged By: 02/06/2024 09:00 /phoebe VITALE MANAGER UROLOGY 02/06/2024 ADDENDUM STATUS: COMPLETED called to schedule appointment. lft voicemail /phoebe VITALE MANAGER UROLOGY Signed: 02/06/2024 09:00 02/06/2024 ADDENDUM STATUS: COMPLETED appt scheduled for 02/17/24 130pm /phoebe VITALE MANAGER UROLOGY Signed: 02/06/2024 11:22 LAMONT COMBS IN [facility]TRL [facility]
--- OUTSIDE RECORDS SUMMARY | 2024-07-10 10:24 | XMS_ITS ---
Author Name [facility] [place] [facility] [place] Organization [place] Address [address] [place] [address] Care Team Providers Care Sustainability Specialist Name Role Phone MEGAN LOZANO Primary Care [...] PART B Jul 01, 2011 PART B [id number] MICKY WHITE PATIENT MEDICARE (WNR) MEDICARE (M) PART A Mar 31, 2011 PART A [id number] MICKY WHITE [facility] * Jul 01, 2011 [id number] MICKY WHITE PATIENT Selected Encounter This section includes the information on record at [place] for the Encounter. Date/Time Encounter Type Encounter Description Reason Provider Source Dec 05, 2023 03:00 PM HEARING SERVICE AUDIOLOGY ICD-10-CM Z46.1 Encounter for fitting and adjustment of hearing aid KATJA BINGHAM Encounter Template Text not used by VA Assessments - Encounter Diagnoses This section includes the primary and secondary diagnoses documented for the Encounter. Date/Time Primary/Secondary Diagnosis Diagnosis Name Provider Source Dec 05, 2023 03:32 PM PRIMARY Encounter for fitting and adjustment of hearing aid [facility] Dec 05, 2023 03:32 PM SECONDARY Sensorineural hearing loss, bilateral RODGER BINGHAM [facility] Plan of Treatment: Future Appointments (+ 6 months) and Future Tests (+/- 45 days) The Plan of Treatment section includes future care activities for the patient from all [place] [facility]. This section includes future appointments and future orders which are active, pending or scheduled. Future Appointments This section includes appointments that were scheduled to occur 6 months from the date of the Encounter, up to a maximum of 20 appointments. The data comes from all [place] treatment facilities. Appointment Date/Time Appointment Type Appointme nt Facility Name Jan 15, 2024 02:00 PM [facility] Jan 22, 2024 04:00 PM [facility]UL[facility] Feb 17, 2024 01:30 PM [facility] May 27, 2024 02:30 PM [facility] Social History: Smoking Status (Most current) and Tobacco Use (All prior to encounter date) This section includes the most current, and the historical, smoking and tobacco- related health factors from the [place] facility where the Encounter took place. Current Smoking Status This section includes the most current smoking, or tobacco-related health factor, from the [place] facility where the Encounter took place. Date/Time Current Smoking Status Comment Facil ity Oct 03, 2023 02:37 PM VA-TOBACCO FORMER USER [facility] Tobacco Use History This section includes a history of the smoking, or tobacco-related health factors, that were collected on or before the date of the Encounter. The data comes from the [place] facility where the Encounter took place. Date/Time Smoking Status/Tobacco Use Comment F acility Oct 03, 2023 02:37 PM VA-TOBACCO QUIT 15 YRS OR MORE [place] [facility] [place] [facility] Encounter Notes: All associated encounter notes This section contains the clinical notes associated to the Encounter. Date/Time Encounter Note(s) Provider Source Dec 05, 2023 07:41 AM AUDIOLOGY E & M NOTE: LOCAL TITLE: AUDIOLOGY CLINIC STANDARD TITLE: AUDIOLOGY E & M NOTE DATE OF NOTE: DEC 05, 2023@07:41 ENTRY DATE: DEC 05, 2023@07:41:13 AUTHOR: KATJA BINGHAM COSIGNER: URGENCY: STATUS: COMPLETED AUDIOLOGY CLINIC Has ADDENDA Dx CODE: Z46.1- Encounter for Fitting/Programming Hearing Aid(s); H90.3- Sensorineural Hearing Loss, Bilateral APPOINTMENT TYPE: Hearing Aid Fitting SUBJECTIVE (S): The patient was seen for hearing aid fitting and issuance, accompanied by his . He had previously been evaluated and found to exhibit significant hearing loss for which amplification was recommended. He is a previous user of privately purchased CICs. How does the patient best learn? Verbal instruction, demonstration Does the patient have any cultural and mormonism beliefs, emotional barriers, physical or cognitive limitations, and communication barriers which may impact his ability to learn? No Desire and motivation to learn? Good OBJECTIVE (O): Physical fit of hearing aids was good. Patient verified comfort. Verification of an appropriate acoustic response was obtained using Real Ear measurements (speech mapping) and NAL-NL2 targets. The patient reported good subjective benefit as well. Feedback client program manager was run. Hearing aids were found to be meeting targets adequately and MPO was not exceeding estimated UCL. Settings stored in [facility]. ASSESSMENT (A): The following devices were issued: Make: Oticon Model: Intent 1 mini[facility]-R Right Serial Number: [id number] Left Serial Number: [id number] Battery size: RECHARGEABLE Warranty ends: 12/19/26 Trial Period ends: 05/18/24 Domes/Wax guards: Prowax Shrimp Header: Size 3 85 gain Earmold: Acrylic canal lock Program(s): Automatic Button(s): Short press= right raise, left lower Long press= on/off Fitting Formula: NAL-NL2 Remote Programming: HAs are capable Counseling was completed throughout todays appointment using a standardized curriculum that includes but is not limited to; realistic expectations with amplification in adverse listening environments, acclimatization to own voice and environmental sounds (following real-ear measurements), the importance of consistent use of amplification, proper insertion/removal, care and maintenance (including wax guards/domes if applicable), signal and alerts of devices, and charging/batteries. The was provided the opportunity to practice in office and reports confidence/understanding in all items reviewed. Time Spent= 20 minutes The patient was informed of and signed/agreed to [place] policy on hearing aid issuance: Yes Users are responsible for the maintenance and security of their devices. Determination of need to replace a hearing aid is made by the [place] senior speech pathologist. Hearing aids will not be replaced in cases of neglect, abuse, or excessive loss. Items issued are for personal use only. Prognosis for successful hearing aid use is good. PLAN (P): 1. Follow-up for programming/adjustments as needed. 2. The International Outcome Inventory-Hearing Aids (IOI-REAVES) will be mailed to the in four weeks. He was asked to complete and mail back to clinic after completion. Patient Education Education provided on the following topics: Hearing aid use, care, maintenance Education provided to: P, SO Response to Education: NONA, PHYLLIS, PI Manzano Patient P Family F Significant Other SO Verbalizes Understanding VU Returns Demonstration RD Performs Independently PI Lacks Comprehension LC Refused Education RE Not Applicable NA /aries/ KATJA BINGHAM STAFF FIRE BOSS Signed: 12/05/2023 15:32 01/22/2024 ADDENDUM STATUS: COMPLETED returned IOI-REAVES Outcome Measure to the clinic via mail with an overall score of 26 Based on this score: i. No follow-up call is indicated _XX_ ii. Follow-up call is indicated and fitting clinician will be notified __ /es/ KEITH ASKEW Audiology Health Donor Services Technician Signed: 01/22/2024 08:06 [facility]
--- OUTSIDE RECORDS SUMMARY | 2024-07-10 10:24 | XMS_ITS ---
Author Name [facility] [place] Organization [place] Address [address] [place] [id number] Care Team Providers Care Principal Technical Specialist Name Role Phone MEGAN LOZANO Primary [...] PART B Jul 01, 2011 PART B [id number] MICKY WHITE PATIENT MEDICARE (WNR) MEDICARE (M) PART A Mar 31, 2011 PART A [id number] [facility]Y [facility]ITE [facility] * Jul 01, 2011 [id number] CHRISTOPHERMICKY ESCAMILLA PATIENT Selected Encounter This section includes the information on record at [place] for the Encounter. Date/Time Encounter Type Encounter Description Reason Pro vider Source Oct 09, 2023 03:02 PM Outpatient Encounter ADMIN PAT ACTIVTIES (MASNONCT) IHE Encounter Template Text not used by [place] Plan of Treatment: Future Appointments (+ 6 months) and Future Tests (+/- 45 days) The Plan of Treatment section includes future care activities for the patient from all [place] [facility]. This section includes future appointments and future orders which are active, pending or scheduled. Future Appointments This section includes appointments that were scheduled to occur 6 months from the date of the Encounter, up to a maximum of 20 appointments. The data comes from all [place] treatment facilities. Appointment Date/Time Appointment Type Appointme nt Facility Name November 05, 2023 03:00 PM AMBULATORY - MEDICINE [place] [facility] [place] [facility] November 12, 2023 04:00 PM AMBULATORY - REHAB MEDICIN [place] [facility] [place] [facility] Dec 05, 2023 03:00 PM AMBULATORY - REHAB MEDICIN E [facility] [place] [facility] Jan 15, 2024 02:00 PM AMBULATORY - REHAB MEDICIN E [place] [facility] [place] [facility] Jan 22, 2024 04:00 PM AMBULATORY - REHAB MEDICIN E [place] [facility] [place] [facility] Feb 17, 2024 01:30 PM AMBULATORY - REHAB MEDICIN E [place] [facility] [place] [facility] Vital Signs: All taken on the encounter date This section contains inpatient and outpatient Vital Signs collected on the date of the Encounter. Date/Time Temperature Pulse Blood Pressure Respiratory Rate SP02 Pain Height Weight Body Mass Index Source Oct 09, 2023 11:09 AM 98.4 73 121/81 16 96 2 71 170 24 [facility] Social History: Smoking Status (Most current) and Tobacco Use (All prior to encounter date) This section includes the most current, and the historical, smoking and tobacco- related health factors from the [place] facility where the Encounter took place. Current Smoking Status This section includes the most current smoking, or tobacco-related health factor, from the [place] facility where the Encounter took place. Date/Time Current Smoking Status Comment Diane haley Oct 03, 2023 02:37 PM [facility]-TO[facility]ACCO [facility] [place] [facility] Tobacco Use History This section includes a history of the smoking, or tobacco-related health factors, that were collected on or before the date of the Encounter. The data comes from the [place] facility where the Encounter took place. Date/Time Smoking Status/Tobacco Use Comment F acility Oct 03, 2023 02:37 PM VA-TOBACCO QUIT 15 YRS OR MORE [place] [facility] [place] [facility] Encounter Notes: All associated encounter notes This section contains the clinical notes associated to the Encounter. Date/Time Encounter Note(s) Provider Source Oct 09, 2023 03:51 PM ADDENDUM: LOCAL TITLE: Addendum STANDARD TITLE: ADDENDUM DATE OF NOTE: OCT 09, 2023@15:51:58 ENTRY DATE: OCT 09, 2023@15:51:59 AUTHOR: KATH GARCIA COSIGNER: URGENCY: STATUS: COMPLETED Reached out to audiology via TEAMS. needs to be seen by ENT prior to getting hearing aids. ENT consult entered held for signature. Called to to apologize for the confusion and to let him know that ENT will be reaching out to set that up with him. is amenable to this plan of care and will await call from ENT. Taken from [employer] Message: [3:34 PM] Angelica Richter 08/21/2023 ADDENDUM STATUS: COMPLETED Should become eligible for [place] hearing aid services, he is a candidate for aids, pending medical clearance from ENT. If a candidate and eligible, medical clearance from ENT would be required. [place] is currently wearing bilateral Kaur CICs he reports he privately purchased through his insurance at least 5 years ago. 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 He reports longstanding hearing difficulties. [place] denies congenital family history of hearing loss, or otologic history/complaints. He denies true vertigo, but does report he gets dizzy sometimes when he stands up. 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 /aries/ Kan Zhou, CCC-A Tour Bus Driver/Guide Signed: 08/21/2023 15:58 [3:34 PM] Angelica Richter He was tested already for C&P purposes in August and needs medical clearance for aids from ENT [3:35 PM] Angelica Richter so to save him double visit-get ENT clearance and then back here for hearing aid selection once he has clearance [3:36 PM] Angelica Richter Asymmetric hearing loss so needs ENT clearance /aries/ KATH GARCIA, JONNY REGISTERED NURSE Signed: 10/09/2023 15:54 Receipt Acknowledged By: 10/10/2023 12:50 /es/ MEGAN LOZANO D.O. PHYSICIAN === --- Original Document --- 10/09/23 CCC: SCHEDULING ADMINISTRATION: Patient Demographics Patient Name: CHYNA WHITE Patient Primary Phone: [phone] Patient Primary Address: [address] [place] [id number] Patient : 1945 Patient Age: 78 Caller/Recipient Relation to Patient: Self Administrative Administrative Note Reason: Other Administrative Note Comments: [place] states he saw his PCP today and was told he did not need a referral to see ENT but they told him he does. Please call him back when referral is placed so he can schedule, /aries/ ANG NOLAN 1 [facility] AMSA Signed: 10/09/2023 15:03 Receipt Acknowledged By: 10/10/2023 09:57 /aries/ NILS CARRILLO LPN License Practical Nurse 10/09/2023 15:51 /aries/ KATH GARCIA RN REGISTERED NURSE KATH GARCIA [place] [facility] Oct 09, 2023 03:03 PM ADMINISTRATIVE NOT E: LOCAL TITLE: CCC: SCHEDULING ADMINISTRATION STANDARD TITLE: ADMINISTRATIVE NOTE DATE OF NOTE: OCT 09, 2023@15:03 ENTRY DATE: OCT 09, 2023@15:03 AUTHOR: ANG JUARES EXP COSIGNER: URGENCY: STATUS: COMPLETED CCC: SCHEDULING ADMINISTRATION Has ADDENDA Patient Demographics Patient Name: CHYNA WHITE Patient Primary Phone: [phone] Patient Primary [address]: [address] [place] [phone] Patient : 1945 Patient Age: 78 Caller/Recipient Relation to Patient: Self Administrative Administrative Note Reason: Other Administrative Note Comments: [place] states he saw his PCP today and was told he did not need a referral to see ENT but they told him he does. Please call him back when referral is placed so he can schedule, /es/ ANG NOLAN 1 [facility] Signed: 10/09/2023 15:03 Receipt Acknowledged By: 10/10/2023 09:57 /es/ NILS CARRILLO LPN License Practical Nurse 10/09/2023 15:51 /es/ KATH GARCIA, JONNY REGISTERED NURSE 10/09/2023 ADDENDUM STATUS: COMPLETED Reached out to audiology via TEAMS. needs to be seen by ENT prior to getting hearing aids. ENT consult entered held for signature. Called to to apologize for the confusion and to let him know that ENT will be reaching out to set that up with him. [place] is amenable to this plan of care and will await call from ENT. Taken from [employer] Message: [3:34 PM] Angelica Richter 08/21/2023 ADDENDUM STATUS: COMPLETED Should become eligible for [place] hearing aid services, he is a candidate for aids, pending medical clearance from ENT. If a candidate and eligible, medical clearance from ENT would be required. [place] is currently wearing bilateral Kaur CICs he reports he privately purchased through his insurance at least 5 years ago. 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 He reports longstanding hearing difficulties. denies congenital family history of hearing loss, or otologic history/complaints. He denies true vertigo, but does report he gets dizzy sometimes when he stands up. 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
--- OUTSIDE RECORDS SUMMARY | 2024-07-10 10:24 | XMS_ITS | Encounter Summary ---
Author Name Department [place] Organization [place] Address [address] [place] [address] Care Team Providers Care Personal Consultant Name Role Phone MEGAN LOZANO Primary Care [...] PART B Jul 01, 2011 PART B [id number] MICKY WHITE PATIENT MEDICARE (WNR) MEDICARE (M) PART A Mar 31, 2011 PART A [id number] MICKY WHITE FRANCINE PATIENT [facility] MEDICAL EXPENSE (OPT/PROF ) [facility] * Jul 01, 2011 [id number] MICKY WHITE PATIENT Selected Encounter This section includes the information on record at [place] for the Encounter. Date/Time Encounter Type Encounter Description Reason Provider Source November 12, 2023 04:00 PM HEARING AID EXAM BOTH EARS AUDIOLOGY ICD-10-CM H90.3 Sensorineural hearing loss, bilateral CHARISSE SCHAFFER Encounter Template Text not used by [place] Assessments - Encounter Diagnoses This section includes the primary and secondary diagnoses documented for the Encounter. Date/Time Primary/Secondary Diagnosis Diagnosis Name Provider Source November 12, 2023 04:27 PM PRIMARY Sensorineural hearing loss, bilateral SENIOR,CHARISSE [place] [facility] Plan of Treatment: Future Appointments (+ 6 months) and Future Tests (+/- 45 days) The Plan of Treatment section includes future care activities for the patient from all [place] [facility]. This section includes future appointments and future orders which are active, pending or scheduled. Future Appointments This section includes appointments that were scheduled to occur 6 months from the date of the Encounter, up to a maximum of 20 appointments. The data comes from all [place] treatment facilities. Appointment Date/Time Appointment Type Appointme nt Facility Name Dec 05, 2023 03:00 PM AMBULATORY - REHAB MEDICIN E [facility] Jan 15, 2024 02:00 PM AMBULATORY - REHAB MEDICIN E [facility] Jan 22, 2024 04:00 PM AMBULATORY - REHAB MEDICIN E [facility] Feb 17, 2024 01:30 PM AMBULATORY - REHAB MEDICIN E [facility] Social History: Smoking Status (Most current) and Tobacco Use (All prior to encounter date) This section includes the most current, and the historical, smoking and tobacco- related health factors from the [place] facility where the Encounter took place. Current Smoking Status This section includes the most current smoking, or tobacco-related health factor, from the [place] facility where the Encounter took place. Date/Time Current Smoking Status Comment Diane briggs Oct 03, 2023 02:37 PM VA-TOBACCO FORMER USER [facility] Tobacco Use History This section includes a history of the smoking, or tobacco-related health factors, that were collected on or before the date of the Encounter. The data comes from the [place] facility where the Encounter took place. Date/Time Smoking Status/Tobacco Use Comment F sanket Oct 03, 2023 02:37 PM [place]-TOBACCO QUIT 15 YRS OR MORE [facility] Encounter Notes: All associated encounter notes This section contains the clinical notes associated to the Encounter. Date/Time Encounter Note(s) Provider Source November 12, 2023 07:51 AM AUDIOLOGY E & M NO TE: LOCAL TITLE: AUDIOLOGY CLINIC STANDARD TITLE: AUDIOLOGY E & M NOTE DATE OF NOTE: NOVEMBER 12, 2023@07:51 ENTRY DATE: NOVEMBER 12, 2023@07:51:57 AUTHOR: CHARISSE SCHAFFER COSIGNER: URGENCY: STATUS: COMPLETED AUDIOLOGY CLINIC Has ADDENDA Dx CODE: H90.3-Sensorineural Hearing Loss, Bilateral APPOINTMENT TYPE: Hearing Aid Selection BACKGROUND/HISTORY: Daisy was seen today for a hearing aid selection appointment, accompanied by his . His last hearing evaluation was on 08/21/2023 and he was deemed eligible for new hearing aids through the [place]. Daisy has an asymmetric sensorineural hearing loss, L>R, and was cleared for hearing aid use by Dr. Smith on 11/05/2023. He has previously used CIC hearing aids [facility] [place]. HEARING AID SELECTION: Different hearing aid options were discussed. He states that he has been unhappy with his CIC hearing aids and would prefer to try ANTIONETTE style devices. He uses an Android phone, and may be interested in Bluetooth connectivity. 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 Therefore, Oticon devices were chosen as they are known to be pacemaker compliant. OTICON INTENT 1 MINIRITE-Rs were selected and ordered in [facility]. Impressions were taken without incident for canal lock earmolds with size 3 85 gain receivers. EDUCATION/COUNSELING: The patient was counseled re: hearing aid options. He demonstrated satisfactory understanding of the education and plan, and was given the opportunity to ask questions throughout today's visit. PLAN: 1. RTC on 12/05/2023 at 3:00pm for 60 minute hearing aid fitting appointment. Patient Education Education provided on the following topics: Hearing aids Education provided to: P Response to Education: VU Manzano Patient P Family F Significant Other SO Verbalizes Understanding VU Returns Demonstration RD Performs Independently PI Lacks Comprehension LC Refused Education RE Not Applicable NA /BEATRIZ Mahajan, CCC-A STAFF CAMPUS RECEPTIONIST Signed: 11/12/2023 16:27 Receipt Acknowledged By: 11/13/2023 07:33 /aries/ WOODY JACOBS LEAD SAIL REPAIR PERSON 11/28/2023 ADDENDUM STATUS: COMPLETED Hearing aids received and certified, upcoming appointment scheduled on 12/05/2023. /aries/ KEITH ASKEW Audiology Health Stained Glass Painter Signed: 11/28/2023 08:39 CHARISSE SCHAFFER [place] [facility] [place] [facility]
--- OUTSIDE RECORDS SUMMARY | 2024-07-10 10:24 | XMS_ITS | Encounter Summary ---
Author Name [place] Organization [place] Address [address] [place] [address] Care Team Providers Care Tool Polisher Name Role Phone MEGAN LOZANO Primary Care [...] PART B Jul 01, 2011 PART B [id number] MICKY WHITE PATIENT MEDICARE (WNR) MEDICARE (M) PART A Mar 31, 2011 PART A [id number] MICKY WHITE FRANCINE [facility] * Jul 01, 2011 [id number] MICKY WHITE PATIENT Selected Encounter This section includes the information on record at [place] for the Encounter. Date/Time Encounter Type Encounter Description Reason Provider Source Feb 17, 2024 01:30 PM HEARING AID REPAIR/MODIFYIN G AUDIOLOGY ICD-10-CM Z46.1 Encounter for fitting and adjustment of hearing aid SENIOR,CHARISSE L IHE Encounter Template Text not used by [place] Assessments - Encounter Diagnoses This section includes the primary and secondary diagnoses documented for the Encounter. Date/Time Primary/Secondary Diagnosis Diagnosis Name Provider Source Feb 17, 2024 01:48 PM PRIMARY Encounter for fitting and adjustment of hearing aid JELENA ASKEW [facility] Feb 17, 2024 01:48 PM SECONDARY Sensorineural hearing loss, bilateral JELENA ASKEW [facility] Plan of Treatment: Future Appointments (+ 6 months) and Future Tests (+/- 45 days) The Plan of Treatment section includes future care activities for the patient from all [place] [facility]. This section includes future appointments and future orders which are active, pending or scheduled. Future Appointments This section includes appointments that were scheduled to occur 6 months from the date of the Encounter, up to a maximum of 20 appointments. The data comes from all [place] treatment facilities. Appointment Date/Time Appointment Type Appointme nt Facility Name May 27, 2024 02:30 PM AMBULATORY - REHAB MEDICIN E [facility] Social History: Smoking Status (Most current) and Tobacco Use (All prior to encounter date) This section includes the most current, and the historical, smoking and tobacco- related health factors from the [place] facility where the Encounter took place. Current Smoking Status This section includes the most current smoking, or tobacco-related health factor, from the [place] facility where the Encounter took place. Date/Time Current Smoking Status Comment Facil ity Oct 03, 2023 02:37 PM VA-TOBACCO FORMER USER [facility] Tobacco Use History This section includes a history of the smoking, or tobacco-related health factors, that were collected on or before the date of the Encounter. The data comes from the [place] facility where the Encounter took place. Date/Time Smoking Status/Tobacco Use Comment F acility Oct 03, 2023 02:37 PM [place]-TOBACCO QUIT 15 YRS OR MORE [facility] Encounter Notes: All associated encounter notes This section contains the clinical notes associated to the Encounter. Date/Time Encounter Note(s) Provider Source Feb 17, 2024 12:52 PM AUDIOLOGY NOTE: LOCAL TITLE: AUDIOLOGY HEALTH PEGA DEVELOPER STANDARD TITLE: AUDIOLOGY NOTE DATE OF NOTE: FEB 17, 2024@12:52 ENTRY DATE: FEB 17, 2024@12:52:37 AUTHOR: KEITH ASKEW COSIGNER: CHARISSE SCHAFFER URGENCY: STATUS: COMPLETED February 17, 2024 History/Background: [facility] was seen for a hearing aid follow up, accompanied by his . [facility] was scheduled today to continuous pickling line pickler his new left earmold. Hearing aids: Oticon Intent 1 miniRITEs Serial Numbers: [id number] Battery size: Rechargeable Date Issued: 12/05/2023 Hearing aid check: Left hearing aid was cleaned and checked. Attached new left earmold to the biomedical service engineer. The left earmold appeared to fit excellent. [facility] reported comfort and security with the new earmold. [facility] will contact the clinic if he experiences any discomfort after wearing it for a while. Plan: Follow up as needed. /aries/ KEITH ASKEW Audiology Health Boom Pump Operator Signed: 02/17/2024 13:48 /aries/ BEATRIZ ESPARZA, [facility]-A STAFF SEED MILL SUPERINTENDENT Cosigned: 02/17/2024 15:19 KEITH ASKEW [facility]
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
--- OUTSIDE RECORDS SUMMARY | 2024-07-10 10:24 | XMS_ITS | Encounter Summary ---
Author Name [place] Address [address] [place] [address] Care Team Providers Care Gummed Tape Press Operator Name Role Phone MEGAN LOZANO Primary Care [...] PART B Jul 01, 2011 PART B [id number] MICKY WHITED PATIENT MEDICARE (WNR) MEDICARE (M) PART A Mar 31, 2011 PART A [id number] CHRISTOPHERMICKY ESCAMILLA [facility] * Jul 01, 2011 [id number] MICKY WHITE FRANCINE PATIENT Selected Encounter This section includes the information on record at [place] for the Encounter. Date/Time Encounter Type Encounter Description Reason Provider Source Jan 15, 2024 02:00 PM HEARING AID REPAIR/MODIFYING AUDIOLOGY ICD-10-CM Z46.1 Encounter for fitting and adjustment of hearing aid LILIANA,JUANPABLO IHE Encounter Template Text not used by [place] Assessments - Encounter Diagnoses This section includes the primary and secondary diagnoses documented for the Encounter. Date/Time Primary/Secondary Diagnosis Diagnosis Name Provider Source Jan 15, 2024 02:25 PM PRIMARY Encounter for fitting and adjustment of hearing aid JELENA ASKEW [facility] Jan 15, 2024 02:25 PM SECONDARY Sensorineural hearing loss, bilateral JELENA ASKEW [facility] Plan of Treatment: Future Appointments (+ 6 months) and Future Tests (+/- 45 days) The Plan of Treatment section includes future care activities for the patient from all [place] [facility]. This section includes future appointments and future orders which are active, pending or scheduled. Future Appointments This section includes appointments that were scheduled to occur 6 months from the date of the Encounter, up to a maximum of 20 appointments. The data comes from all [place] treatment facilities. Appointment Date/Time Appointment Type Appointme nt Facility Name Jan 22, 2024 04:00 PM AMBULATORY - REHAB MEDICIN E [facility] Feb 17, 2024 01:30 PM AMBULATORY - REHAB MEDICIN E [facility] May 27, 2024 02:30 PM AMBULATORY - REHAB MEDICIN E [facility] Social History: Smoking Status (Most [...] 03, 2023 02:37 PM VA-TOBACCO FORMER USER [facility] Tobacco Use History This section includes a history of the smoking, or tobacco-related health factors, that were collected on or before the date of the Encounter. The data comes from the [place] facility where the Encounter took place. Date/Time Smoking Status/Tobacco Use Comment F acility Oct 03, 2023 02:37 PM VA-TOBACCO QUIT 15 YRS OR MORE [facility] Encounter Notes: All associated encounter notes This section contains the clinical notes associated to the Encounter. Date/Time Encounter Note(s) Provider Source Jan 15, 2024 07:55 AM AUDIOLOGY NOTE: LOCAL TITLE: AUDIOLOGY HEALTH [facility] STANDARD TITLE: AUDIOLOGY NOTE DATE OF NOTE: JAN 15, 2024@07:55 ENTRY DATE: JAN 15, 2024@07:55:26 AUTHOR: KEITH ASKEW COSIGNER: JUANPABLO FORD URGENCY: STATUS: COMPLETED January 15, 2024 History/Background: was seen for a hearing aid follow up, accompanied by his . scheduled today's appointment reporting pain with his left earmold. When removing left earmold [place] flinched in pain. Hearing aids: Oticon Intent 1 miniRITEs Serial Numbers: [id number] Battery size: Rechargeable Date Issued: 12/05/2023 Hearing aid check: Left hearing aid was cleaned and checked. Modified left earmold by significantly grinding down all around. [place] was unable to get left earmold in his ear due to discomfort. Advised not to wear left hearing aid until ear canal is completely healed and to call clinic if earmold needs further modifications. Otoscopy revealed redness in left canal. Plan: Follow up as needed. /aries/ KEITH ASKEW Audiology Health Tumbler Drier Operator Signed: 01/15/2024 14:28 /aries/ JUANPABLO Constantino CCC-A CHIEF, AUDIOLOGY/CREDIT SPECIALIST Cosigned: 01/15/2024 16:03 KEITH ASKEW [facility]
--- OUTSIDE RECORDS SUMMARY | 2024-07-10 10:24 | XMS_ITS ---
Author Name Department of [place]) Organization Department of [place] Address [address] [place] [address] Care Team Providers Care Rn Invasive Name Role Phone MEGAN LOZANO Primary Care [...] PART B Jul 01, 2011 PART B [id number] MICKY WHITE PATIENT MEDICARE (WNR) MEDICARE (M) PART A Mar 31, 2011 PART A [id number] MICKY WHITE FRANCINE PATIENT [facility] MEDICAL EXPENSE (OPT/PROF ) [facility] * Jul 01, 2011 [id number] MICKY WHITE PATIENT Selected Encounter This section includes the information on record at [place] for the Encounter. Date/Time Encounter Type Encounter Description Reason Provider Source May 27, 2024 02:30 PM HEARING AID CHECK BOTH EARS AUDIOLOGY ICD-10-CM Z46.1 Encounter for fitting and adjustment of hearing aid LILIANA,JUANPABLO IHE Encounter Template Text not used by [place] Assessments - Encounter Diagnoses This section includes the primary and secondary diagnoses documented for the Encounter. Date/Time Primary/Secondary Diagnosis Diagnosis Name Provider Source May 27, 2024 02:36 PM PRIMARY Encounter for fitting and adjustment of hearing aid [facility] May 27, 2024 02:36 PM SECONDARY Sensorineural hearing loss, bilateral ELANBeatrizJELENA ANTONIETTA [facility] May 27, 2024 02:36 PM SECONDARY Snsrnrl hear loss, uni, l ear, with rstrcd hear cntra side [facility] Plan of Treatment: Future Appointments (+ 6 months) and Future Tests (+/- 45 days) The Plan of Treatment section includes future care activities for the patient from all [place] treatmentfacilities. This section includes future appointments and future orders which are active, pending or scheduled. Future Appointments This section includes appointments that were scheduled to occur 6 months from the date of the Encounter, up to a maximum of 20 appointments. The data comes from all [place] treatment facilities. Appointment Date/Time Appointment Type Appointme nt Facility Name Oct 15, 2024 01:00 PM AMBULATORY - MEDICINE [facility] Social History: Smoking Status (Most current) and Tobacco Use (All prior to encounter date) This section includes the most current, and the historical, smoking and tobacco- related health factors from the [place] facility where the Encounter took place. Current Smoking Status This section includes the most current smoking, or tobacco-related health factor, from the [place] facility where the Encounter took place. Date/Time Current Smoking Status Comment Facil ity Oct 03, 2023 02:37 PM VA-TOBACCO FORMER USER [facility] Tobacco Use History This section includes a history of the smoking, or tobacco-related health factors, that were collected on or before the date of the Encounter. The data comes from the [place] facility where the Encounter took place. Date/Time Smoking Status/Tobacco Use Comment F acility Oct 03, 2023 02:37 PM [place]-TOBACCO QUIT [facility] YRS [facility] Encounter Notes: All associated encounter notes This section contains the clinical notes associated to the Encounter. Date/Time Encounter Note(s) Provider Source May 27, 2024 11:51 AM AUDIOLOGY NOTE: LOCAL TITLE: AUDIOLOGY HEALTH AGRICULTURAL SERVICE WORKER STANDARD TITLE: AUDIOLOGY NOTE DATE OF NOTE: MAY 27, 2024@11:51 ENTRY DATE: MAY 27, 2024@11:51:52 AUTHOR: KEITH ASKEW COSIGNER: JUANPABLO FORD URGENCY: STATUS: COMPLETED May 27, 2024 History/Background: was seen for a hearing aid follow up, accompanied by his . The presented today stating he recently received a new left earmold and when replacing the wax guard today the wax guards he has would not fit. Hearing aids: Oticon Intent 1 miniRITEs Serial Numbers: [id number] Battery size: Rechargeable Date Issued: 12/05/2023 Hearing aid check: Both hearing aids were cleaned and checked. Initial inspection revealed the left aid uses a prowax MF and the right aid uses a prowax. Replaced wax guards and brushed microphones. Biologic check was good. The was given a pack of prowax MF and a supply was ordered in [facility]. Plan: Follow up as needed. /aries/ KEITH ASKEW Audiology Health Production Machine Computer Operator Signed: 05/27/2024 14:37 /aries/ JUANPABLO Constantino, [facility])-A CHIEF, AUDIOLOGY/SMALL LOT OPERATOR Cosigned: 05/29/2024 07:20 KEITH ASKEW [facility]TRL [facility]
[2024-08-05 14:13] VITALS: BMI 22.2
--- NOTE | 2024-08-06 10:02 | HO.ANESPROP2 ---
Documented by User: Bri Spann NP 08/06/24 10:13 HPI - Anesthesia Eval Consult details Narrative: 79yo M for Colonoscopy Follows [facility] for: s/p AVR 2021 pacer in situ 2021 for CHB Denies CP/SOB with shoveling/plowing. Last cardiac office visit appt 2023 (only 2022 visit avail) and has upcoming appt 08/28/24. Echo 07/2024 [place] PMF[facility] Active Problems Active Problems: All Active Problems Nocturia more than twice per night (Acute) BPH w urinary obs/LUTS (Acute) Past Medical History Medical History (Updated 08/05/24 @ 14:21 by Luly Ernst RN) Cardiac pacemaker Depression Fuchs' corneal dystrophy BPH (benign prostatic hyperplasia) Surgical History Surgical History (Updated 08/05/24 @ 14:17 by Luly Ernst RN) S/P cardiac pacemaker procedure Hx of aortic valve replacement Hx of bilateral cataract extraction Hx of inguinal hernia repair Hx of nasal septoplasty History of surgery Hx of cornea transplant Social History Social History Patient Tobacco Use Status: Former Tobacco user Tobacco use type: Cigarette Second Hand Smoke Exposure: No Use of substances other than those prescribed or required for medical reasons: No Have you been hit, kicked, punched, or otherwise hurt by someone within the past year? If so, by whom?: No Are you DNR?: No Advance Directives: No Advance Directives Information Provided: Yes Advance Directives on File: No Recently lost weight without trying: No Eating poorly because of decreased appetite: No Nutrition Risks: No Nutritional Risk Poor oral hygiene: No Meds Allergies Allergy/AdvReac Type Severity Reaction Status Date / Time No Known Allergies Allergy Verified 05/14/23 13:38 Home Medications ?Medication ?Instructions ?Recorded ?Confirmed ?Last Taken ?Type brinzolamide 1 %-brimonidine 0.2 % 1 drp ophthalmic (eye) TID 09/01/21 08/07/24 08/06/24 History eye drops,suspension (Simbrinza) bupropion HCl 100 mg tablet,12 hr 100 mg PO QAM 09/01/21 08/07/24 08/06/24 History sustained-release escitalopram oxalate 10 mg tablet 10 mg PO DAILY 09/01/21 08/07/24 08/06/24 History escitalopram oxalate 5 mg tablet 5 mg PO DAILY 09/01/21 08/07/24 08/06/24 History latanoprost 0.005 % eye drops 1 drp ophthalmic (eye) BEDTIME 09/01/21 08/07/24 08/06/24 History loteprednol etabonate 0.5 % eye 1 drp ophthalmic (eye) DAILY 09/01/21 08/07/24 08/06/24 History drops,suspension trazodone 50 mg tablet 50 mg PO BEDTIME 09/01/21 08/07/24 08/06/24 History aripiprazole 10 mg tablet 10 mg PO DAILY 08/05/24 08/07/24 08/06/24 History Exam Height,Weight and Vital Signs: Height 6 ft 1 in Weight 76.204 kg Narrative Narrative: ECHO 07/2024 1. LV cavity size decreased 2.Mild to mod conc LVH 3. Overall LV sys function mildly impaired with EF b/w 45-50% 4. Grade II diastolic dysfunction with elevated LA pressure 5. Paradoxical septal motion c/w post-op status 6. LA severely dilated 7. RV moderately enlarged 8. RV sys function nml 9. Nml function of bioprosthetic AV 10. Peak/mean gradient 17.6/9.37 11. Mild to moderate mitral regurg present 12. predominately posteriorly directed jet 13. Mild prolapse of anterior mitral valve leaflet 14. No evidence of pulmo htn 15. No real change c/w 07/2023 Pacer interrogation 05/2024 -[employer] GUIDE Battery status ok values in nml range Since last transmission, no new episodes 0% AT/AF burden Assessment and Plan Assessment Anesthesia Assessment: Chart Reviewed Documented by User: Gaby Jaimes MD 08/07/24 06:56 [facility] Past Medical History Medical History (Updated 08/05/24 @ 14:21 by Luly Ernst RN) Cardiac pacemaker Depression Fuchs' corneal dystrophy BPH (benign prostatic hyperplasia) Family History Family history of problems with anesthesia: No Surgical History Surgical History (Updated 08/05/24 @ 14:17 by Luly Ernst RN) S/P cardiac pacemaker procedure Hx of aortic valve replacement Hx of bilateral cataract extraction Hx of inguinal hernia repair Hx of nasal septoplasty History of surgery Hx of cornea transplant History of Problems with Anesthesia: No Social History Social History Patient Tobacco Use Status: Former Tobacco user Tobacco use type: Cigarette Second Hand Smoke Exposure: No Use of substances other than those prescribed or required for medical reasons: No Have you been hit, kicked, punched, or otherwise hurt by someone within the past year? If so, by whom?: No Are you DNR?: No Advance Directives: No Advance Directives Information Provided: Yes Advance Directives on File: No Recently lost weight without trying: No Eating poorly because of decreased appetite: No Nutrition Risks: No Nutritional Risk Poor oral hygiene: No Meds Allergies Allergy/AdvReac Type Severity Reaction Status Date / Time No Known Allergies Allergy Verified 05/14/23 13:38 Home Medications ?Medication ?Instructions ?Recorded ?Confirmed ?Last Taken ?Type brinzolamide 1 %-brimonidine 0.2 % 1 drp ophthalmic (eye) TID 09/01/21 08/07/24 08/06/24 History eye drops,suspension (Simbrinza) bupropion HCl 100 mg tablet,12 hr 100 mg PO QAM 09/01/21 08/07/24 08/06/24 History sustained-release escitalopram oxalate 10 mg tablet 10 mg PO DAILY 09/01/21 08/07/24 08/06/24 History escitalopram oxalate 5 mg tablet 5 mg PO DAILY 09/01/21 08/07/24 08/06/24 History latanoprost 0.005 % eye drops 1 drp ophthalmic (eye) BEDTIME 09/01/21 08/07/24 08/06/24 History loteprednol etabonate 0.5 % eye 1 drp ophthalmic (eye) DAILY 09/01/21 08/07/24 08/06/24 History drops,suspension trazodone 50 mg tablet 50 mg PO BEDTIME 03/10/2008/07/24 08/06/24 History aripiprazole 10 mg tablet 10 mg PO DAILY 08/05/24 08/07/24 08/06/24 History Exam Airway Mallampati Class: II (caps through out) TM Dist: >3cm Neck ROM: Full Heart: rrr Lungs: cta Assessment and Plan Assessment Anesthesia Assessment: Anesthesia Plan Discussed Final Anesthetic Review Family History of Problems with Anesthesia: No History of Problems with Anesthesia: No NPO: Yes ASA Class: III Final Preanesthetic Review: No Changes in Pt Med Stat, Meds/Allgs Chart Reviewed and Consent Obtained/Reviewed Patient Risk: Low Procedure Risk: Low Anesthetic Plan Anesthetic Plan: GA Disposition: Standard PACU
[2024-08-07 07:03] VITALS: BP 126/78; PULSE 70; RESP 16; TEMP 36.9; O2SAT 97
[2024-08-07] MEDS: Lactated Ringers 1,000 ML 100 ML IVCONT (07:05)
[2024-08-07 08:38] VITALS: BP 97/55; PULSE 58; RESP 16; TEMP 36.1; O2SAT 94
--- NOTE | 2024-08-07 08:41 | PM.OP ---
Brief Operative Note Date of Service: 08/07/24 Pre-op diagnosis: Screening Post-op diagnosis: other (Colon polyp) Procedure: Colonoscopy to the cecum with hot snare polypectomy Surgeon: Amador Bower MD Anesthesia: MAC Was an Quill Machine Tender used for this Procedure?: No Estimated blood loss (mL): 0 Pathology: other (A. Ascending colon polyp) Condition: stable Disposition: PACU
[2024-08-07 08:53] VITALS: BP 104/46; PULSE 59; RESP 16; TEMP 36.1; O2SAT 96
--- NOTE | 2024-08-07 09:55 | OP_ITS ---
DATE OF SERVICE: 08/07/2024 SURGEON: Amador Bower MD INDICATIONS: The patient presents for evaluation of personal history of tubular adenoma of the colon and need for colorectal cancer screening. Full consent has been obtained from him for this, including risks of bleeding and perforation. PREOPERATIVE DIAGNOSIS: POSTOPERATIVE DIAGNOSIS: Colorectal cancer screening and personal history of tubular adenoma of the colon, colon polyp, diverticulosis, and internal hemorrhoids. PROCEDURE PERFORMED: Colonoscopy to the cecum with hot snare polypectomy x1. ESTIMATED BLOOD LOSS: COMPLICATIONS: ANESTHESIA: Medication used, monitored anesthesia care. ASSISTANTS: SPECIMENS: PREOPERATIVE DIAGNOSES: Colorectal cancer screening and personal history of tubular adenoma of the colon. DESCRIPTION OF PROCEDURE: The patient was placed in the left lateral decubitus position. The digital rectal exam revealed no abnormalities. The Olympus video pediatric colonoscope was entered into the rectum and advanced to the cecum with the assistance of abdominal wall pressure. Once in the cecum, I did identify normal-appearing cecal pouch with appendiceal orifice and a normal-appearing ileocecal valve. The entire cecum and ileocecal valve appeared normal. There was transillumination of light deep in the right lower quadrant. The scope was slowly withdrawn assessing all mucosal surfaces carefully. For the most part, preparation was excellent throughout the colon, although there were some areas of liquid stool, which had to be irrigated and suctioned away. In the proximal ascending colon was approximately 1 cm flat but raised polyp, which was removed by hot snare polypectomy and then recovered by suction. The polypectomy site appeared clean, without any sign of residual polyp nor bleeding. I did not visualize any other polyps, colitis, nor angiodysplasia. There was a moderate amount of sigmoid diverticulosis. In the rectum, scope was retroflexed visualizing internal hemorrhoids, but no other pathology. The rectal mucosa appeared normal. The scope was straightened and withdrawn from the patient. He tolerated the procedure well and was returned to the recovery area in stable condition. IMPRESSION: 1. Colon polyp. 2. Diverticulosis. 3. Internal hemorrhoids. PLAN: Given the patient's age and these findings, I do not think, he would need any further screening colonoscopies. He was advised not to use any aspirin and NSAIDs for 1 week. He will otherwise see me on a p.r.n. basis. MD JOSH Root/MANDEEP / [id number]
== END 2024-08-07 09:22 | disposition home or self-care (01) ==
PROVIDERS: PCP Internal Medicine; Visit Provider Internal Medicine
PROC: 0DJD8ZZ Inspection of Lower Intestinal Tract, Via Natural or Artificial Opening Endoscopic (ICD-10-PCS; CPT 45378; principal; 2024-08-07 07:30)
DX: Z12.11 Encounter for screening for malignant neoplasm of colon (principal); Z86.0101 Personal history of adenomatous and serrated colon polyps; D12.2 Benign neoplasm of ascending colon; K57.30 Diverticulosis of large intestine without perforation or abscess without bleeding; K64.8 Other hemorrhoids; N40.0 Benign prostatic hyperplasia without lower urinary tract symptoms; H18.512 Endothelial corneal dystrophy, left eye; Z94.7 Corneal transplant status; Z95.4 Presence of other heart-valve replacement; Z95.0 Presence of cardiac pacemaker; F32.A Depression, unspecified; Z79.899 Other long term (current) drug therapy; Z87.891 Personal history of nicotine dependence; Z98.890 Other specified postprocedural states
CPT/HCPCS: 45385; 88305; J2003; J2704

== ENCOUNTER 2024-11-10 14:22 | Outpatient (AMB) | payer MEDICARE, OTHER, SELFPAY ==
[2022-05-17 07:12] VITALS: BP 116/70; BP 128/70
--- NOTE | 2024-11-10 14:32 | A.OFFVIS_ITS ---
Intake Visit Reasons: 1yr/PVR Intake Note: Patient is Present for 1Y PVR Follow Up. Urology Med: Terazosin Antibiotic Allergy: None Blood Thinner: None PVR: 0 mL'S TODAY'S PVR:55ML'S Vat House Laborer Required: No Accompanied by: Self / Same As Patient Allergies No Known Allergies Allergy (Verified 11/10/24 14:33) HPI Comments Details: Joel is a pleasant male. He is a patient of Dr. Lopez. He is seen for the following urologic conditions - elevated PSA - lower urinary tract symptoms Prior PSA low Prior PVR low Small prostate Weakening of stream Trial terazosin 10 mg Uroflow next office follow-up Lower urinary tract symptoms Voiding progressive weakness of stream and nocturia Good response to terazosin 5 mg Prior therapy tamsulosin 0.4 11/20 cystoscopy small prostate PSA remains low 04/20 1.1, 08/23 1.2 [facility] Medical History (Updated 11/10/24 @ 15:01 by John Meyer MD) Cardiac pacemaker Depression Fuchs' corneal dystrophy BPH (benign prostatic hyperplasia) Surgical History S/P cardiac pacemaker procedure Hx of aortic valve replacement Hx of bilateral cataract extraction Hx of inguinal hernia repair Hx of nasal septoplasty History of surgery Hx of cornea transplant Social History Patient Tobacco Use Status: Former Tobacco user Tobacco use type: Cigarette Second Hand Smoke Exposure: No Review of Systems Const Denies chills and Denies fever(s) Card Reports no additional complaints and Denies syncope Resp Denies cough GI Denies abdominal pain and Denies heartburn Reports as per HPI and Denies change in libido Neuro Denies syncope Psych Denies change in libido Endo Denies change in libido Physical Exam Const General: cooperative, healthy appearing, comfortable and no acute distress Orientation/consciousness: patient oriented x3 HEENT Face and sinus: Yes normal facial exam Mouth: moist mucous membranes Neck Neck: Yes normal visual inspection, Yes full ROM and Yes trachea midline Chest Chest palpation & inspection: normal inspection of the chest Resp Effort & Inspection: normal respiratory effort, able to speak in complete sentences and no respiratory distress GI Inspection: Yes normal to inspection Back/Spine/Pelvis Cervical Spine: normal cervical lordosis Thoracic/Lumbar Spine: thoracic and lumbar spine normal to inspection Skin General skin exam: no rashes or lesions noted Neuro General: patient oriented x3, gait normal, tone normal and moves all extremities Extrem General: Yes normal to inspection and Yes capillary refill normal Office Procedures Post Void Residual Post Residual Void Post Void Residual (PVR): 55 [id number] Void Residual by ultrasound Assessment & Plan Assessment & Plan (1) Microscopic hematuria: Code(s): R31.29 - Other microscopic hematuria Category: Medical (2) BPH w urinary obs/LUTS: Code(s): N40.1 - Benign prostatic hyperplasia with lower urinary tract symptoms; N13.8 - Other obstructive and reflux uropathy Category: Medical (3) Nocturia more than twice per night: Code(s): R35.1 - Nocturia Category: Medical Plan 10 mg terazosin daily three-month with follow-up uroflow Medications: Changed From terazosin 5 mg PO BEDTIME 90 days 90 caps 3RF N13.8 - Other obstructive and reflux uropathy, N40.1 - Benign prostatic hyperplasia with lower urinary tract symptoms, R35.0 - Frequency of micturition To terazosin 10 mg PO BEDTIME 90 days 90 caps 0RF N13.8 - Other obstructive and reflux uropathy, N40.1 - Benign prostatic hyperplasia with lower urinary tract symptoms, R35.0 - Frequency of micturition Patient Instructions: This note is constructed using voice recognition software. While every effort has been made to ensure accuracy game preserve manager errors may have been included. Imaging studies, laboratory and physical exam results were discussed and reviewed in detail. No major barriers to patient understanding were identified. An opportunity to ask questions regarding the treatment plan was provided. All questions were answered. The patient expressed understanding and agreement with the above treatment plan. The patient is aware they should contact our office by phone for worsening of their current condition or the appearance of new urologic symptoms. Compliance is encouraged with any medications and followup testing that is ordered. It is a privilege to participate in the urologic care of your patient. If you have any questions or concerns regarding treatment for the above conditions, or other urologic issues, please do not hesitate to contact me. The office telephone contact is [phone]. Sincerely, Dr John Meyer MD, [facility] - Urology Compassionate Specialist Care for the Genitourinary System Coding Level of Care Code Est Pt Level 4 (04452) Complex EM visit Add On G2211 Diagnoses Microscopic hematuria R31.29 BPH w urinary obs/LUTS N40.1; N13.8 Nocturia more than twice per night R35.1 CPT Codes Post Residual Void - PVR CPT Code: 70465-Fqeg Void Residual by ultrasound ([id number])
--- OUTSIDE RECORDS SUMMARY | 2024-11-10 15:32 | XMS_ITS ---
Author Organization Russell Lopez MD Address [address] [id number] Care Team Providers Care Gear Machine Operator General Name Role Phone Russell Lopez Primary Care Provider REASON FOR VISIT Test results Encounters Encounter Location Date Provider Diagnosis Russell Lopez MD [facility] [address] [place] [phone] 07/24/2024 Russell Lopez Plan Of Treatment Next Appt Details Provider Name:Russell Lopez , 01/21/2025 01:00:00 PM, [address] [place] [address], [place] [address], [place], [place], [phone], Progress Notes * Joel WHITEDOB:1945 (79 yo M)Acc No.[id number]:07/24/2024 Patient:?CHRISTOPHERJoseJoel :1945???Age:79 Y???Sex:Male Address:[address] [place], [place] [address], [address] * true * Date:? Generated for Printi jonathon/Fawhitneyg/eTransmitting on:?11/10/2024 03:32 PM EDT
--- OUTSIDE RECORDS SUMMARY | 2024-11-10 15:32 | XMS_ITS ---
Author Organization [facility] Address [address] [place] [address] Care Team Providers Care Licensed Pesticide Applicator Name Role Phone Russell Lopez MD Primary Care Provider Unavail able Amador Bower Unavailable [phone] REASON FOR VISIT screening,hx polyps Problems Problem Type SNOMED Code ICD Code Onset Dates Problem Status W/U Status Risk Notes Problem Diverticulosis o f large intestine without perforation or abscess without bleeding (K57.30) Active confirmed Encounters Encounter Location Date Provider Diagnosis [facility] [place] [address], [place] [phone] 08/07/2024 Amador Bower Colon cancer scree christian [...] * CHYNA WHITEDOB: 6 (79 yo M)Acc No.[id number]:08/07/2024 COLON WITH MAC Patient:?CHYNA WHITE Provider:?Amador Bower MD :1945???Age:79 Y???Sex:Male Gopal e:08/07/2024 Address: [address] [place], [place] Pcp:Russell Lopez MD Subjective: * Chief Complaints: * ???1. Screening,hx polyps. * Medical History:? Objective: * Vitals:? Assessment: * Assessment: 1.?Colon cancer screening - Z12.11 (Primary)???2.?Colon polyps - K63.5???3.?Diverticulosis of large intestine without perforation or abscess without bleeding - K57.30???4.?Other hemorrhoids - K64.8??? Plan: * Treatment: * Procedure Codes:?41655 LESIO N REMOVAL COLONOSCOPY, Modifiers: PT , 0529F INTRVL 3+YRS PTS CLNSCP DOCD, 0528F RCMND FLW-UP 10 YRS DOCD, Modifiers: 1P * * The named appointment provid er may or may not be the originator of this progress note, and it is not deemed complete until electronically signed by the appointment provider. Sign off status: Pending * Provider:?Amador Bower MD Date:? 025 Generated for Dhruv holt/Damien/Dedesmitting on:?11/10/2024 03:32 PM EDT
--- OUTSIDE RECORDS SUMMARY | 2024-11-10 15:32 | XMS_ITS | Encounter Summary ---
Author Name [facility] [place] Organization [facility] [place] Address [address] [place] [address] Care Team Providers Care Hydrometer Finisher Name Role Phone MEGAN LOZANO Primary Care [...] PART B Jul 01, 2011 PART B [id number] MICKY WHITE FRANCINE PATIENT MEDICARE (WNR) MEDICARE (M) PART A Mar 31, 2011 PART A [id number] CHRISTOPHERMICKY ESCAMILLA PATIENT [employer] EXPENSE (OPT/PROF ) MERGED WITH [facility] * Jul 01, 2011 [id number] MICKY WHITE FRANCINE PATIENT Selected Encounter This section includes the information on record at [place] for the Encounter. Date/Time Encounter Type Encounter Description Reason Provider Source Jan 15, 2024 02:00 PM HEARING AID REPAIR/MODIFYING AUDIOLOGY ICD-10-CM Z46.1 Encounter for fitting and adjustment of hearing aid LILIANA,JUANPABLO IHE Encounter Template Text not used by [place] Assessments - Encounter Diagnoses This section includes the primary and secondary diagnoses documented for the Encounter. Date/Time Primary/Secondary Diagnosis Diagnosis Name Provider Source Jan 15, 2024 02:25 PM PRIMARY Encounter for fitting and adjustment of hearing aid JELENA ASKEW [facility] Jan 15, 2024 02:25 PM SECONDARY Sensorineural hearing loss, bilateral JELENA ASKEW [facility] Plan of Treatment: Future Appointments (+ 6 months) and Future Tests (+/- 45 days) The Plan of Treatment section includes future care activities for the patient from all [place] [facility]. This section includes future appointments and future orders which are active, pending or scheduled. Future Appointments This section includes appointments that were scheduled to occur 6 months from the date of the Encounter, up to a maximum of 20 appointments. The data comes from all [place] treatment facilities. Appointment Date/Time Appointment Type Appointme nt Facility Name Jan 22, 2024 04:00 PM AMBULATORY - REHAB MEDICIN E [facility] Feb 17, 2024 01:30 PM AMBULATORY - REHAB MEDICIN E [facility] May 27, 2024 02:30 PM AMBULATORY - REHAB MEDICIN E [facility] Social History: Smoking Status (Most current) and Tobacco Use (All prior to encounter date) This section includes the most current, and the historical, smoking and tobacco- related health factors from the [place] facility where the Encounter took place. Current Smoking Status This section includes the most current smoking, or tobacco-related health factor, from the [place] facility where the Encounter took place. Date/Time Current Smoking Status Comment Facil ity Oct 03, 2023 02:37 PM VA-TOBACCO FORMER USER [facility] Tobacco Use History This section includes a history of the smoking, or tobacco-related health factors, that were collected on or before the date of the Encounter. The data comes from the [place] facility where the Encounter took place. Date/Time Smoking Status/Tobacco Use Comment F acility Oct 03, 2023 02:37 PM VA-TOBACCO QUIT 15 YRS OR MORE [facility] Encounter Notes: All associated encounter notes This section contains the clinical notes associated to the Encounter. Date/Time Encounter Note(s) Provider Source Jan 15, 2024 07:55 AM AUDIOLOGY NOTE: LOCAL TITLE: AUDIOLOGY [facility] STANDARD TITLE: AUDIOLOGY NOTE DATE OF NOTE: JAN 15, 2024@07:55 ENTRY DATE: JAN 15, 2024@07:55:26 AUTHOR: KEITH ASKEW COSIGNER: JUANPABLO FORD URGENCY: STATUS: COMPLETED January 15, 2024 History/Background: Thomson was seen for a hearing aid follow up, accompanied by his . Thomson scheduled today's appointment reporting pain with his left earmold. When removing left earmold Thomson flinched in pain. Hearing aids: Oticon Intent 1 miniRITEs Serial Numbers: [id number] Battery size: Rechargeable Date Issued: 12/05/2023 Hearing aid check: Left hearing aid was cleaned and checked. Modified left earmold by significantly grinding down all around. was unable to get left earmold in his ear due to discomfort. Advised not to wear left hearing aid until ear canal is completely healed and to call clinic if earmold needs further modifications. Otoscopy revealed redness in left canal. Plan: Follow up as needed. /aries/ KEITH ASKEW Audiology Health Sight Mounter Signed: 01/15/2024 14:28 /aries/ JUANPABLO Constantino CCC-A CHIEF, AUDIOLOGY/PROGRAM MANAGER SLP Cosigned: 01/15/2024 16:03 KEITH ASKEW CNTRL WSN [facility]
--- OUTSIDE RECORDS SUMMARY | 2024-11-10 15:33 | XMS_ITS ---
Author Organization Russell Lopez MD Address [address] [place] [phone] Care Team Providers Care Rug Cleaning Supervisor Name Role Phone Russell Lopez Primary Care Provider Allergies Allergen (clinical drug ingredient) Drug/Non Drug Allergy documented on EMR Reaction Allergy Type Onset Date Status Opiates (uncoded) Nausea, Vomiting Allergy Active REASON FOR VISIT New Refill Request Medications Medication SIG (Take, Route, Fr equency, Duration) Notes Start Date End Date Status Omeprazole 20 MG TAKE 1 CAPSULE BY MO UTH 30 MINUTES BEFORE THE MORNING MEAL for 90 Active Tamsulosin HCl 0.4 MG TAKE ONE CAPSULE B Y MOUTH ONCE DAILY for 90 Active Encounters Encounter Location Date Provider Diagnosis Russell Lopez MD [address] [place] [phone] 08/31/2024 Russell Lopez Plan Of Treatment Medication Medication Name Sig Start Date Stop Date Notes Omeprazole 20 MG TAKE 1 CAPSULE BY MO UTH 30 MINUTES BEFORE THE MORNING MEAL for 90 Tamsulosin HCl 0.4 MG TAKE ONE CAPSULE B Y MOUTH ONCE DAILY for 90 Next Appt Details Provider Name:Russell Lopez , 01/21/2025 01:00:00 PM, [address] [place] [address], [place] [address], [place], [place], [phone], Progress Notes * Joel WHITEDOB:1945 (79 yo M)Acc No.[id number]:08/31/2024 Patient:?CHRISTOPHERJoseJoel :1945???Age:79 Y???Sex:Male Address: [place], [address] * Refills? Refill Tamsulosin HCl Capsule, 0.4 MG, 90 Capsule, TAKE ONE CAPSULE BY MOUTH ONCE DAILY, 90, Refills=2 Refill Omeprazole Capsule Delayed Release, 20 MG, 90 Capsule, TAKE 1 CAPSULE BY MOUTH 30 MINUTES BEFORE THE MORNING MEAL, 90, Refills=1 Subjective: * Chief Complaints: * ???New Refill Request * Medical History:? * Surgical History:? * Hospitalization/Major Diagno stic Procedure:? * Medications:? * Allergies:?Opiates: Nausea, Vomitingno[Allergies Verified] Objective: * Vitals:? Past Vitals:* 07/16/2024 Temp:96.8F, HR:72/min, BP:Si tting Right Arm: 110/50mm Hg, Wt:170lbs, BMI:23.71Index, Ht:71in, Oxygen sat %:97% * 01/16/2024 Temp:96.9F, HR:67/min, BP:Si tting Right Arm: 114/60mm Hg, Wt:163.6lbs, BMI:22.82Index, Ht:71in, Oxygen sat %:98% * 10/10/2023 Temp:979F, HR:68/min, BP:Sit ting Right Arm: 118/62mm Hg, Wt:173.8lbs, BMI:24.24Index, Ht:71in, RR:98/min * Physical Examination:? Assessment: Plan: * Treatment: * Procedure Codes:? * true * Date:? Generated for Dhruv holt/Damien/eTransmitting on:?11/10/2024 03:32 PM EDT
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
--- OUTSIDE RECORDS SUMMARY | 2024-11-10 15:33 | XMS_ITS ---
Author Name [facility] [place] Organization [place] Address [address] [place] [address] Care Team Providers Care Business Services Specialist Sales Name Role Phone MEGAN LOZANO Primary Care [...] PART B Jul 01, 2011 PART B [id number] MICKY WHITED PATIENT MEDICARE (WNR) MEDICARE (M) PART A Mar 31, 2011 PART A [id number] MICKY WHITE FRANCINE PATIENT [employer] MED[employer] EXPENSE (OPT/PROF ) [facility] * Jul 01, 2011 [id number] MICKY WHITED PATIENT Selected Encounter This section includes the information on record at [place] for the Encounter. Date/Time Encounter Type Encounter Description Reason Provider Source Feb 17, 2024 01:30 PM HEARING AID REPAIR/MODIFYIN G AUDIOLOGY ICD-10-CM Z46.1 Encounter for fitting and adjustment of hearing aid SENIOR,CHARISSE L IHE Encounter Template Text not used by [place] Assessments - Encounter Diagnoses This section includes the primary and secondary diagnoses documented for the Encounter. Date/Time Primary/Secondary Diagnosis Diagnosis Name Provider Source Feb 17, 2024 01:48 PM PRIMARY Encounter for fitting and adjustment of hearing aid JELENA ASKEW [facility] Feb 17, 2024 01:48 PM SECONDARY Sensorineural hearing loss, bilateral JELENA ASKEW [facility] Plan of Treatment: Future Appointments (+ 6 months) and Future Tests (+/- 45 days) The Plan of Treatment section includes future care activities for the patient from all [place] [facility] [place] This section includes future appointments and future orders which are active, pending or scheduled. Future Appointments This section includes appointments that were scheduled to occur 6 months from the date of the Encounter, up to a maximum of 20 appointments. The data comes from all [place] treatment facilities. Appointment Date/Time Appointment Type Appointme nt Facility Name May 27, 2024 02:30 PM AMBULATORY - REHAB MEDICIN E [facility] Social History: Smoking Status (Most current) and Tobacco Use (All prior to encounter date) This section includes the most current, and the historical, smoking and tobacco- related health factors from the [place] facility where the Encounter took place. Current Smoking Status This section includes the most current smoking, or tobacco-related health factor, from the [place] facility where the Encounter took place. Date/Time Current Smoking Status Comment Facil ity Oct 03, 2023 02:37 PM VA-TOBACCO FORMER USER [facility] Tobacco Use History This section includes a history of the smoking, or tobacco-related health factors, that were collected on or before the date of the Encounter. The data comes from the [place] facility where the Encounter took place. Date/Time Smoking Status/Tobacco Use Comment F acility Oct 03, 2023 02:37 PM [place]-TOBACCO QUIT 15 YRS OR MORE [facility] Encounter Notes: All associated encounter notes This section contains the clinical notes associated to the Encounter. Date/Time Encounter Note(s) Provider Source Feb 17, 2024 12:52 PM AUDIOLOGY NOTE: LOCAL TITLE: AUDIOLOGY HEALTH CONSUMER SALES REPRESENTATIVE STANDARD TITLE: AUDIOLOGY NOTE DATE OF NOTE: FEB 17, 2024@12:52 ENTRY DATE: FEB 17, 2024@12:52:37 AUTHOR: KEITH ASKEW COSIGNER: CHARISSE SCHAFFER URGENCY: STATUS: COMPLETED February 17, 2024 History/Background: was seen for a hearing aid follow up, accompanied by his . Revelo was scheduled today to medicinal plant picker his new left earmold. Hearing aids: Oticon Intent 1 miniRITEs Serial Numbers: [id number] Battery size: Rechargeable Date Issued: 12/05/2023 Hearing aid check: Left hearing aid was cleaned and checked. Attached new left earmold to the system admin. The left earmold appeared to fit excellent. reported comfort and security with the new earmold. Revelo will contact the clinic if he experiences any discomfort after wearing it for a while. Plan: Follow up as needed. /aries/ KEITH ASKEW Audiology Health Vice President Network Development Signed: 02/17/2024 13:48 /aries/ BEATRIZ ESPARZA, [facility]-A STAFF STATISTICAL TECHNICIAN Cosigned: 02/17/2024 15:19 KEITH ASKEW CNTL [facility]
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
--- OUTSIDE RECORDS SUMMARY | 2024-11-10 15:33 | XMS_ITS ---
Author Organization Russell Lopez MD Address [address] [place] [phone] Care Team Providers Care Senior Product Development Scientist Name Role Phone Russell Lopez Primary Care Provider [phone] Allergies Allergen (clinical drug ingredient) Drug/Non Drug Allergy documented on EMR Reaction Allergy Type Onset Date Status Opiates (uncoded) Nausea, Vomiting Allergy Active REASON FOR VISIT pre-med for dental work. Medications Medication SIG (Take, Route, Fr equency, Duration) Notes Start Date End Date Status Amoxicillin 500 MG 4 capsule Orally Onc e a Day for 4 days 10/13/2024 10/21/2024 Active Encounters Encounter Location Date Provider Diagnosis Russell Lopez MD [address] [place] [phone] 10/13/2024 Russell Lopez Plan Of Treatment Medication Medication Name Sig Start Date Stop Date Notes Amoxicillin 500 MG 4 capsule Orally Once a Day for 4 days 10/13/2024 10/21/2024 Next Appt Details Provider Name:Russell Lopez , 01/21/2025 01:00:00 PM, [address] [place] [address], [place] [address], [place], [place], [phone], Progress Notes * Joel WHITEDOB:1945 (79 yo M)Acc No.[id number]:10/13/2024 Patient:?Joel WHITE :1945???Age:79 Y???Sex:Male Address:[address] [place], [place] [address], [address] * Refills? Start Amoxicillin Capsule, 500 MG, Orally, 16 Capsule, 4 capsule, Once a Day, 4 days, Refills=1 Subjective: * Chief Complaints: * ???Pre-med for dental work. * Medical History:? * Surgical History:? * [...] * true * Date:? Generated for Dhruv holt/Damien/Kathy on:?11/10/2024 03:33 PM EDT
--- OUTSIDE RECORDS SUMMARY | 2024-11-10 15:33 | XMS_ITS ---
Author Name [facility] Organization [facility] Address [address] [place] [address] Care Team Providers Care Racket Stringer Name Role Phone MEGAN LOZANO Primary Care [...] PART B Jul 01, 2011 PART B [id number] MICKY WHITED PATIENT MEDICARE (WNR) MEDICARE (M) PART A Mar 31, 2011 PART A [id number] MICKY WHITE FRANCINE PATIENT [employer] EXPENSE (OPT/PROF ) [facility] * Jul 01, 2011 [id number] MICKY WHITED PATIENT Selected Encounter This section includes the information on record at [place] for the Encounter. Date/Time Encounter Type Encounter Description Reason Provider Source May 27, 2024 02:30 PM HEARING AID CHECK BOTH EARS AUDIOLOGY ICD-10-CM Z46.1 Encounter for fitting and adjustment of hearing aid LILIANA,JUANPABLO IHE Encounter Template Text not used by [place] Assessments - Encounter Diagnoses This section includes the primary and secondary diagnoses documented for the Encounter. Date/Time Primary/Secondary Diagnosis Diagnosis Name Provider Source May 27, 2024 02:36 PM PRIMARY Encounter for fitting and adjustment of hearing aid JELENA ASKEW [facility] May 27, 2024 02:36 PM SECONDARY Sensorineural hearing loss, bilateral JELENA ASKEW [facility] May 27, 2024 02:36 PM SECONDARY Snsrnrl hear loss, uni, l ear, with rstrcd hear cntra side [facility] Plan of Treatment: Future Appointments (+ 6 months) and Future Tests (+/- 45 days) The Plan of Treatment section includes future care activities for the patient from all [place] treatmentfacilities. This section includes future appointments and future orders which are active, pending or scheduled. Future Appointments This section includes appointments that were scheduled to occur 6 months from the date of the Encounter, up to a maximum of 20 appointments. The data comes from all [place] treatment facilities. Appointment Date/Time Appointment Type Appointme nt Facility Name Oct 15, 2024 01:00 PM AMBULATORY - MEDICINE [facility] November 12, 2024 04:00 PM AMBULATORY - REHAB MEDICIN E [facility] Social History: Smoking Status (Most current) and Tobacco Use (All prior to encounter date) This section includes the most current, and the historical, smoking and tobacco- related health factors from the [place] facility where the Encounter took place. Current Smoking Status This section includes the most current smoking, or tobacco-related health factor, from the [place] facility where the Encounter took place. Date/Time Current Smoking Status Comment Facil ity Oct 03, 2023 02:37 PM [facility] Tobacco Use History This section includes a history of the smoking, or tobacco-related health factors, that were collected on or before the date of the Encounter. The data comes from the [place] facility where the Encounter took place. Date/Time Smoking Status/Tobacco Use Comment F acility Oct 03, 2023 02:37 PM VA-TOBACCO QUIT 15 YRS OR MORE [facility] Encounter Notes: All associated encounter notes This section contains the clinical notes associated to the Encounter. Date/Time Encounter Note(s) Provider Source May 27, 2024 11:51 AM AUDIOLOGY NOTE: LOCAL TITLE: AUDIOLOGY HEALTH ROTARY DRILLER STANDARD TITLE: AUDIOLOGY NOTE DATE OF NOTE: MAY 27, 2024@11:51 ENTRY DATE: MAY 27, 2024@11:51:52 AUTHOR: KEITH ASKEW COSIGNER: JUANPABLO FORD URGENCY: STATUS: COMPLETED May 27, 2024 History/Background: [place] was seen for a hearing aid follow up, accompanied by his . The presented today stating he recently received a new left earmold and when replacing the wax guard today the wax guards he has would not fit. Hearing aids: [employer] Intent 1 miniRITEs Serial Numbers: [id number] Battery size: Rechargeable Date Issued: 12/05/2023 Hearing aid check: Both hearing aids were cleaned and checked. Initial inspection revealed the left aid uses a prowax MF and the right aid uses a prowax. Replaced wax guards and brushed microphones. Biologic check was good. The was given a pack of prowax MF and a supply was ordered in [facility]. Plan: Follow up as needed. /aries/ KEITH ASKEW Audiology Health Director Of Accounts Payable Signed: 05/27/2024 14:37 /aries/ JUANPABLO Constantino CCC-A CHIEF, AUDIOLOGY/HARDWARE TECHNICIAN Cosigned: 05/29/2024 07:20 KEITH ASKEW [facility]
--- OUTSIDE RECORDS SUMMARY | 2024-11-10 15:33 | XMS_ITS ---
Author Organization [facility] Address [address] [place] [phone] Care Team Providers Care Roof Slater Name Role Phone Russell Lopez MD Primary Care Provider Unavail able Amador Bower [phone] REASON FOR VISIT no antibiotics Encounters Encounter Location Date Provider Diagnosis [facility] [address] [place] [phone] 04/14/2024 Amador Bower Plan Of Treatment No Information Progress Notes * CHYNA WHITEDOB: 6 (78 yo M)Acc No.[id number]:04/14/2024 Patient:?CHYNA WHITE :1945???Age:78 Y???Sex:Male Address: [place], [address] * true * Date:? Generated for Printi ng/Fawhitneyg/eTransmitting on:?11/10/2024 03:33 PM EDT
--- OUTSIDE RECORDS SUMMARY | 2024-11-10 15:34 | XMS_ITS | Patient Health Record ---
Author Organization [facility] Address [address] [place] [phone] Care Team Providers Care Rf Manager Name Role Phone Russell Lopez Primary Care Provider Allergies Allergen (clinical drug ingredient) Drug/Non Drug Allergy documented on EMR Reaction Allergy Type Onset Date Status Opiates (uncoded) Nausea, Vomiting Allergy Active Results Component Value Reference Range Notes IMGEAP Reviewed date:07/24/2024 03:19:57 PM Interpretation: Performing Lab: Notes/Report: See Note [facility], a member of [employer] PROCEDURE: MRI of the lumbar spine without contrast. TECHNIQUE: Multiplanar multisequence MRI of the lumbar spine without intravenous contrast administration. HISTORY: Low back pain. COMPARISON: None. FINDINGS: There is mild atrophy of the lower lumbar paraspinous musculature. Partially visible colonic diverticulosis. Visualized paraspinous soft tissues are otherwise unremarkable. Moderate levoscoliosis centered at L3-4. Straightening of the typical lumbar lordosis. Modic endplate changes at several levels, most prominent at L1-2 and L5-S1. Mild Baastrup's disease. No concerning marrow infiltrative lesion. No compression deformity. The conus is in a normal position at L1. Lumbar disc levels: L1-2: Moderate-severe disc space height loss and endplate irregularity. Moderate symmetric disc osteophyte complex. Mild degenerative changes of the facet joints. Mild spinal stenosis. No significant foraminal stenosis. L2-3: Severe disc space height loss and moderate endplate irregularity. Small symmetric disc osteophyte complex. Mild degenerative changes of the facet joints. No significant spinal or foraminal stenosis. L3-4: Moderate disc space height loss and endplate irregularity eccentric to the right. Moderate disc osteophyte complex slightly eccentric to the right. Mild left and moderate right facet arthropathy. Mild widening of the left facet joint suggesting hypermobility. Mild spinal stenosis. Moderate right foraminal stenosis. L4-5: Moderate disc space height loss and endplate irregularity eccentric to the right. Moderate disc osteophyte complex also slightly eccentric to the right. Mild right greater than left facet arthropathy. Mild right foraminal stenosis. No significant spinal stenosis. L5-S1: Moderate disc space height loss and endplate irregularity. Moderate symmetric disc bulge with small endplate osteophytes area mild bilateral facet arthropathy. Severe left and moderate right foraminal stenosis. Moderate left lateral recess stenosis without spinal stenosis. IMPRESSION: Moderate lower lumbar levoscoliosis. Multilevel degenerative changes, most prominent along the concave margin of the scoliotic curve, as detailed above. -------- FINAL REPORT -------- Dictated By: Rafat Meza Dictated Date: 07/22/2024 10:30 ET Assigned Physician: Rafat Meza Reviewed and Electronically Signed By: Rafat Meza Signed Date: 07/22/2024 10:38 ET Workstation ID: [id number] Transcribed By: Self Edit Transcribed Date: 07/22/2024 10:31 ET See Note PROCEDURE: MRI of th e lumbar spine without contrast. TECHNIQUE: Multiplan ar multisequence MRI of the lumbar spine without intravenous contrast administration. HISTORY: Low back pain. COMPARISON: None. FINDINGS: There is mild atroph y of the lower lumbar paraspinous musculature. Partially visible colonic diverticulosis. Visualized paraspinous soft tissues are otherwise unremarkable. Moderate levoscolios is centered at L3-4. Straightening of the typical lumbar lordosis. Modic endplate changes at several levels, most prominent at L1-2 and L5-S1. Mild Baastrup's disease. No concerning marrow infiltrative lesion. No compression deformity. The conus is in a normal position at L1. Lumbar disc levels: L1-2: Moderate-sever e disc space height loss and endplate irregularity. Moderate symmetric disc osteophyte complex. Mild degenerative changes of the facet joints. Mild spinal stenosis. No significant foraminal stenosis. L2-3: Severe disc sp paola height loss and moderate endplate irregularity. Small symmetric disc osteophyte complex. Mild degenerative changes of the facet joints. No significant spinal or foraminal stenosis. L3-4: Moderate disc space height loss and endplate irregularity eccentric to the right. Moderate disc osteophyte complex slightly eccentric to the right. Mild left and moderate right facet arthropathy. Mild widening of the left facet joint suggesting hypermobility. Mild spinal stenosis. Moderate right foraminal stenosis. L4-5: Moderate disc space height loss and endplate irregularity eccentric to the right. Moderate disc osteophyte complex also slightly eccentric to the right. Mild right greater than left facet arthropathy. Mild right foraminal stenosis. No significant spinal stenosis. L5-S1: Moderate disc space height loss and endplate irregularity. Moderate symmetric disc bulge with small endplate osteophytes area mild bilateral facet arthropathy. Severe left and moderate right foraminal stenosis. Moderate left lateral recess stenosis without spinal stenosis. IMPRESSION: Moderate lower lumba r levoscoliosis. Multilevel degenerative changes, most prominent along the concave margin of the scoliotic curve, as detailed above. -------- FINAL REPOR T -------- Dictated By: Rafat Navarrete Dictated Date: 07/22/2024 10:30 ET Assigned Physician: Rafat Meza Reviewed and Electronically Signed By: Rafat Meza Signed Date: 025 10:38 ET Workstation ID: [id number] Transcribed By: Self Edit Transcribed Date: 07/22/2024 10:31 ET PDF Report Reviewed date:01/21/2024 08:28:54 AM Interpretation: Performing Lab:[facility], [address] [place] [address], Phone - [phone], Director - [employer] Notes/Report: PDF Report Reviewed date:01/21/2024 08:28:54 AM Interpretation: Performing Lab:[facility], [address] [place] [address], Phone - [phone], Director - [employer] Notes/Report: Urinalysis, Complete-[id number] Reviewed date:01/21/2024 08:28:55 AM Interpretation: Performing Lab:[facility], [address] [place] [address], Phone - [phone], Director - [employer]Joy Notes/Report: Specific [place] 1.018 1.005-1.030 pH 6.0 5.0-7.5 Urine-Color Yellow [...] None seen None seen/Few CBC With Differential/Platel et-[id number] Reviewed date:01/21/2024 08:28:55 AM Interpretation: Performing Lab:[facility] Phone - [phone], Director - [employer] Notes/Report: WBC 6.0 3.4-10.8 [...] Immature Grans (Abs) 0.0 0.0-0.1 x10E3/uL Prostate-Specific Ag-[id number] Reviewed date:01/21/2024 08:28:55 AM Interpretation: Performing Lab:[facility], [address] [place] [address], [place], Phone - [phone], Director - [employer] Notes/Report: Prostate Specific Ag 1.6 0.0-4.0 ng/mL Nav ECLIA methodology. . According to the [place] [employer], Serum PSA should decrease and [...] or absence of malignant disease. Vitamin D, 68-Qpfjrzb-[id number] Reviewed date:01/21/2024 08:28:55 AM Interpretation: Performing Lab:[facility], [address] [place] [address], [place], Phone - [phone], Director - [employer] Notes/Report: Vitamin D, 25-Hydroxy 47.6 30.0-100.0 ng/mL Vitamin D deficiency has been defined by the [place] of [employer] and an Endocrine Society practice guideline as a level of serum 25-OH vitamin D less than 20 ng/mL (1,2). The Endocrine Society went on to further define vitamin D insufficiency as a level between 21 and 29 ng/mL (2). 1. IOM ([place] of Medicine). 2010. Dietary reference intakes for calcium and D. [place]: The National Academies Press. 2. Tommie MF, Neelima NC, Etelvina REAVES, et al. Evaluation, treatment, and prevention of vitamin D deficiency: an Endocrine Society clinical practice guideline. JCEM. 2010; 96(7):1911-30. Varicella-Zoster V Ab, IgG-0 37110 Reviewed date:01/21/2024 08:28:54 AM Interpretation: Performing Lab:[facility], [address] [place] [address], [place], Phone - [phone], Director - [employer] Notes/Report: Varicella Zoster IgG 3575 Immune >165 index Negative <135 Equivocal 135 - 165 Positive >165 A positive result generally indicates exposure to the pathogen or administration of specific immunoglobulins, but it is not indication of active infection or stage of disease. B-Type Natriuretic Peptide-1 81300 Reviewed date:01/21/2024 08:28:55 AM Interpretation: Performing Lab:[facility], Phone - [phone], Director - [employer] Notes/Report: B-Type Natriuretic Peptide 100.0 0.0-100.0 pg/mL Siemens ADVIA [place] r XP methodology Comp. Metabolic Panel (14)-3 Reviewed date:01/21/2024 08:28:55 AM Interpretation: Performing Lab:[facility], [facility], Phone - [phone], Director - [employer] Notes/Report: Glucose 88 70-99 mg/dL BUN 20 [...] IU/L ALT (SGPT) 19 0-44 IU/L LP+Non-HDL Cholesterol-87619 5 Reviewed date:01/21/2024 08:28:55 AM Interpretation: Performing Lab:[facility], Phone - [phone], Director - N[employer]emy Notes/Report: Cholesterol, Total 142 100-199 mg/dL Triglycerides 69 0-149 mg/dL HDL Cholesterol 51 >39 mg/dL VLDL Cholesterol Jordan 14 5-40 mg/dL LDL Chol Calc ([facility]) 77 0-99 mg/dL Non-HDL Cholesterol 91 0-129 mg/dL HCV Antibody-[id number] Reviewed date:01/21/2024 08:28:55 AM Interpretation: Performing Lab:[facility], [address] [place] [address], Phone - [phone], Director - [facility] Notes/Report: Hep C Virus Ab Non Reactive Non Reactive HCV antibody alone does not differentiate between previously resolved infection and active infection. Equivocal and Reactive HCV antibody results should be followed up with an HCV RNA test to support the diagnosis of active HCV infection. PDF Report Reviewed date:01/21/2024 08:28:55 AM Interpretation: Performing Lab:[facility] [address] [place] [address], Phone - [phone], Director - [employer] Notes/Report: B-Type Natriuretic Peptide-1 58516 Reviewed date:07/17/2024 02:28:23 PM Interpretation: Performing Lab:[facility] [address] [place] [address], Phone - [phone], Director - [facility] Notes/Report: B-Type Natriuretic Peptide 222.2 0.0-100.0 pg/mL Siemens ADVIA [place] r XP methodology Comp. Metabolic Panel (14)-3 86365 Reviewed date:07/17/2024 02:28:23 PM Interpretation: Performing Lab:[facility] [place], [address] [place] [address], Phone - [phone], Director - [facility] Notes/Report: Glucose 101 70-99 mg/dL BUN 33 8-27 mg/dL Creatinine 1.04 0.76-1.27 mg/dL eGFR 73 >59 mL/min/1.73 BUN/Creatinine Ratio 32 10-24 Sodium 139 134-144 mmol/L Potassium 4.3 3.5-5.2 mmol/L Chloride 102 96-106 mmol/L Carbon Dioxide, Total 27 20-29 mmol/L Calcium 9.1 8.6-10.2 mg/dL Protein, Total 7.1 6.0-8.5 g/dL Albumin 4.3 3.8-4.8 g/dL Globulin, Total 2.8 1.5-4.5 g/dL Bilirubin, Total 0.3 0.0-1.2 mg/dL Alkaline Phosphatase 90 44-121 IU/L AST (SGOT) 21 0-40 IU/L ALT (SGPT) 22 0-44 IU/L LP+Non-HDL Cholesterol-82577 5 Reviewed date:07/17/2024 02:28:23 PM Interpretation: Performing Lab:[facility], [address], [place], Phone - [phone], Director - [employer] Notes/Report: Cholesterol, Total 145 100-199 mg/dL Triglycerides 129 0-149 mg/dL HDL Cholesterol 46 >39 mg/dL VLDL Cholesterol Jordan 23 5-40 mg/dL LDL Chol Calc ([facility]) 76 0-99 mg/dL Non-HDL Cholesterol 99 0-129 mg/dL MR Lumbar Spine WO Reviewed date:07/27/2024 08:19:30 AM Interpretation: Performing Lab: Notes/Report: Reason For Referral No Information Medications Medication [...] with food Orally Twice a day Unknown [facility] Formula - as directed Orally Active Omeprazole 20 MG TAKE 1 CAPSULE BY MO UTH 30 MINUTES BEFORE THE MORNING MEAL for 90 Active Loteprednol Etabonate 0.5 % INSTILL 1 DR OP INTO EACH EYE DAILY. Ophthalmic for 37 Active Simbrinza 1-0.2 % PLACE 1 DROP INTO TH E LEFT EYE 2 (TWO) TIMES A DAY. Ophthalmic for 60 Active Ferrous Sulfate 325 (65 Fe) MG 1 tablet Orally Once a day for 30 day(s) 03/15/2022 Active ARIPiprazole 10 MG TAKE 1 TABLET BY TRINA TH EVERY DAY for 90 Active Tamsulosin HCl 0.4 MG TAKE ONE CAPSULE B Y MOUTH ONCE DAILY for 90 Active Escitalopram Oxalate 10 MG TAKE 1 TABLET BY MOUTH EVERY DAY FOR 30 DAYS for 90 Active Immunizations Vaccine Route Administration Date Status Comme nts Td (adult) preservative free IM Intramuscular 12/20/2020 Administered Pneumococcal polysaccharide PCV 13 Unknown 05/17/2017 Administered Influenza (split), 3 yrs and above Unknown 05/17/2017 Administered Influenza (split), 3 yrs and above IM Intramuscular 03/17/2018 Administered Mfd by Sanofi Pasteur Influenza (Fluad) Unknown 03/18/2020 Administered Influenza (Fluad) Unknown 06/18/2021 Administered HLPMC-81-Ehnmbk Vaccine Unknown 09/16/2020 Administered TJFYL-93-Xhxvil Vaccine Unknown 10/07/2020 Administered VZRSU-20-Qckafdj Vaccine Unknown 06/18/2021 Administered COVID-19 Moderna BiValent Booster Unknown 06/17/2022 Administered COVID Spikevax Moderna Unknown 04/09/2023 Administered *PREVNAR 20 IM Intramuscular 01/16/2024 Administered *Pneumococcal polysaccharide PPV23 IM Intramuscular 10/17/2018 Administered *Influenza, High Dose Seasonal, Quadrivatent Unknown 06/17/2022 Administered *Influenza, High Dose Seasonal, Quadrivatent Unknown 04/09/2023 Administered Social History Tobacco Use: Social History [...] Status Risk Notes Problem Vitamin D deficiency (72260471) Vitamin D deficiency, unspecified (E55.9) Active confirmed Problem Mixed hyperlipidemia (051477935) Mixed hyperlipidemia (E78.2) Active confirmed Problem Moderate major depression, single episode (32238754) Major depressive disorder, single episode, moderate (F32.1) Active confirmed Problem Brachial plexus disorder (5489233) Brachial plexus disorders (G54.0) Active confirmed Problem Fuchs (64394829) Fuchs' heterochromic cyclitis, 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 Problem Sensorineural hearing loss of bilateral ears (disorder) (496918070) Sensorineural hearing loss, bilateral (H90.3) Active confirmed Problem Complete atrioventricular block (28294269) Atrioventricular block, complete (I44.2) Active confirmed Problem Chronic diastolic heart failure (303990524) Chronic diastolic (congestive) heart failure (I50.32) Active confirmed Problem Gastro-esophageal reflux disease without esophagitis (466113946) Gastro-esophageal reflux disease without esophagitis (K21.9) Active confirmed Problem Chondromalacia of patella (51757128) Chondromalacia patellae, 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) Active confirmed Problem Congenital stenosis of aortic valve (64892862) 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) Active confirmed Problem History of polyp of colon (situation) (928188120) Personal history of colonic polyps (Z86.010) Active confirmed Problem Corneal transplant (69390028) Corneal transplant status (Z94.7) Active confirmed Problem Cardiac pacemaker in situ (794409753) Presence of cardiac pacemaker (Z95.0) Active confirmed Problem Finding of hearing aid (985074659) Presence of external hearing-aid (Z97.4) Active confirmed Problem Benign prostatic hypertrophy without outflow obstruction (135699252) Benign prostatic hyperplasia without lower urinary tract symptoms (N40.0) Active confirmed Problem Spinal stenosis of lumbar region (00914928) Spinal stenosis, lumbar region without neurogenic claudication (M48.061) Active confirmed Vital Signs Heart Rate 72 /min 07/16/2024 Temperature 96.8 degrees Fahrenheit 07/16/2024 Blood pressure diastolic 50 mm Hg 07/16/2024 Oximetry 97 % 07/16/2024 Height 71 in 07/16/2024 Blood pressure systolic 110 mm Hg 07/16/2024 Weight 170 lbs 07/16/2024 BMI 23.71 kg/m2 07/16/2024 Encounters Encounter Location Date Provider Diagnosis Russell Lopez MD [address] [id number] 01/16/2024 Russell Lopez Major depressive disorder, single [...] of external hearing-aid Z97.4 Russell Lopez MD [address] [id number] 07/16/2024 Russell Lopez Major depressive disorder, single episode, moderate F32.1 ; Chronic diastolic (congestive) heart failure I50.32 ; Mixed hyperlipidemia E78.2 ; Atrioventricular block, complete I44.2 ; Presence of cardiac pacemaker Z95.0 ; Spinal stenosis, lumbar region without neurogenic claudication M48.061 ; Vitamin D deficiency, unspecified E55.9 and Brachial plexus disorders G54.0 Russell Lopez MD [address] [id number] 01/21/2024 Russell Lopez MD [address] [id number] 07/24/2024 Russell Lopez MD [address] [id number] 08/31/2024 Russell Lopez MD [address] [id number] 10/13/2024 Russell Lopez Assessments Encounter Date Diagnosis (ICD Code) Assessment Notes Treatment Notes Treatment Clinical Notes Section Notes 07/16/2024 Major depressive disorder, single episode, moderate (ICD-10 - F32.1) His mood is doing okay. Is not great. Its better than it had been. Given the fact that he still has some ongoing issues recommend either counseling or behavioral health evaluation with psychiatry but he is not sure if he wants to pursue that and he will think about this. 07/16/2024 Chronic diastolic (congestive) heart failure (ICD-10 - I50.32) Symptomatically stable at present. Stable post valve replacement. Recheck status 01/16/2024 Major depressive disorder, single episode, moderate [...] fatigue may be related to heart failure. 07/16/2024 Mixed hyperlipidemia (ICD-10 - E78.2) Stable on prior labs reviewed with LDL less than 70. Can recheck status 07/16/2024 Atrioventricular block, complete (ICD-10 - I44.2) Stable and unchanged. Treated by pacemaker placement 01/16/2024 Mixed hyperlipidemia (ICD-10 - E78.2) Stable on prior labs as reviewed with LDL less than 70. Recheck status 01/16/2024 Atrioventricular block, complete (ICD-10 - I44.2) Stable and unchanged 07/16/2024 Presence of cardiac pacemaker (ICD-10 - Z95.0) Stable and unchanged. 07/16/2024 Spinal stenosis, lumbar region without neurogenic claudication (ICD-10 - M48.061) He reports that for some time now he has been having knee pain when he is asleep. About correction through the night he awakens with bilateral knee pain. In association with that there is back pain. He changes position and it improves. 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 Recommend MRI since this is analogous to neurogenic claudication. 01/16/2024 Presence of cardiac pacemaker (ICD-10 - [...] - Z94.7) Stable and unchanged at present 07/16/2024 Vitamin D deficiency, unspecified (ICD-10 - E55.9) Stable on prior labs reviewed. Recheck status and would consider vitamin D supplementation for goal level of 50+ 07/16/2024 Brachial plexus disorders (ICD-10 - G54.0) He also notices that occasionally his left hand becomes edematous. This is when he wakes up and by the end of the day it is usually better. Currently there is no edema on the left hand. However his Adson maneuver is positive. He sleeps on his side and is possible that he may have a thoracic outlet syndrome causing the edema or dynamic obstruction. At this point recommend he try to sleep on his back and see if the edema recurs. If it does not then there may be a dynamic obstruction at the subclavian level. If this does not improve then he may need imaging to exclude fixed obstruction 01/16/2024 Personal history of colonic polyps (ICD-10 [...] syntax. Also labs were reviewed with patient. 07/16/2024 Other This note was created with voice [...] 02/25/2022 ANTI-HEPATITIS C W/RFLX HCV QNT 01/09/20 22 Next Appt Details Provider Name:Russell Lopez , 01/21/2025 01:00:00 PM, [address] [place] [address], [address], [place], [place], [phone], Insurance Providers Payer Name Payer Address Payer Phone Subscriber Number Group Number Insured Name Patient Relationship to Insured Coverage Start Date Coverage End Date MEDICARE [address] [place] [phone] [id number] Joel Martinez Self - patient is the insured [facility] [address] [place] [address] [phone] [id number] Joel Martinez Self - patient is the [...]
--- OUTSIDE RECORDS SUMMARY | 2024-11-10 15:34 | XMS_ITS | Encounter Summary ---
Author Name [facility] [place] Organization [facility] [place] Address [address] [place] [address] Care Team Providers Care Binding Stitcher Name Role Phone MEGAN LOZANO Primary Care [...] PART B Jul 01, 2011 PART B [id number] MICKY WHITED PATIENT MEDICARE (WNR) MEDICARE (M) PART A Mar 31, 2011 PART A [id number] MICKY WHITE FRANCINE PATIENT [employer] (OPT/PROF ) [facility] * Jul 01, 2011 [id number] MICKY WHITED PATIENT Selected Encounter This [...] PRIMARY Sensorineural hearing loss, bilateral SENIOR,CHARISSE Whittington [facility] Plan of Treatment: Future Appointments (+ 6 months) and Future Tests (+/- 45 days) The Plan of Treatment section includes future care activities for the patient from all [place] [facility]. This section includes future appointments and [...] 03:00 PM AMBULATORY - REHAB MEDICIN E [facility] Jan 15, 2024 02:00 PM AMBULATORY - REHAB MEDICIN E [facility] Jan 22, 2024 04:00 PM AMBULATORY - REHAB MEDICIN E [facility] Feb 17, 2024 01:30 PM AMBULATORY - REHAB MEDICIN E [facility] Social History: Smoking Status (Most current) [...] 03, 2023 02:37 PM VA-TOBACCO FORMER USER [facility] Tobacco Use History This section includes a history of the smoking, or tobacco-related health factors, that were collected on or before the date of the Encounter. The data comes from the [place] facility where the Encounter took place. Date/Time Smoking Status/Tobacco Use Comment F sanket Oct 03, 2023 02:37 PM [place]-TOBACCO QUIT 15 YRS OR MORE [facility] Encounter Notes: All associated encounter notes [...] eligible for new hearing aids through the [place]. Daisy has an asymmetric sensorineural hearing loss, L>R, and was cleared for hearing aid use by Dr. Smith on 11/05/2023. He has previously used CIC hearing aids that he purchased from [facility] in [place]. HEARING AID SELECTION: Different hearing aid options [...] 1 MINIRITE-Rs were selected and ordered in [facility]. Impressions were taken without incident for canal [...] Not Applicable NA /BEATRIZ Mahajan, CCC-A STAFF FISHER QUAHOG Signed: 11/12/2023 16:27 Receipt Acknowledged By: 11/13/2023 07:33 /aries/ WOODY JACOBS LEAD DINING HOST 11/28/2023 ADDENDUM STATUS: COMPLETED Hearing aids received and certified, upcoming appointment scheduled on 12/05/2023. /aries/ KEITH ASKEW Audiology Health Physician Practice Market Manager Signed: 11/28/2023 08:39 CHARISSE SCHAFFER [place] [facility] [place] [facility]
--- OUTSIDE RECORDS SUMMARY | 2024-11-10 15:34 | XMS_ITS | Encounter Summary ---
Author Name [facility] Organization [facility] [place] Address [address] [place] [address] Care Team Providers Care Booster Station Operator Name Role Phone MEGAN LOZANO Primary [...] PART B Jul 01, 2011 PART B [id number] MICKY WHITE PATIENT MEDICARE (WNR) MEDICARE (M) PART A Mar 31, 2011 PART A [id number] MICKY WHITE PATIENT WE[employer]POINT [employer] EXPENSE (OPT/PROF ) [facility] * Jul 01, 2011 [id number] MICKY WHITE PATIENT Selected Encounter This section includes the information on record at [place] for the Encounter. Date/Time Encounter Type Encounter [...] and adjustment of hearing aid [facility]ODGER BINGHAM [facility] Dec 05, 2023 03:32 PM SECONDARY Sensorineural hearing loss, bilateral RODGER BINGHAM [facility] Plan of Treatment: Future Appointments (+ 6 months) and Future Tests (+/- 45 days) The Plan of Treatment section includes future care activities for the patient from all [place] [facility]. This section includes future appointments and future orders which are active, pending or scheduled. Future Appointments This section includes appointments that were scheduled to occur 6 months from the date of the Encounter, up to a maximum of 20 appointments. The data comes from all [place] treatment facilities. Appointment Date/Time Appointment Type Appointme nt Facility Name Jan 15, 2024 02:00 PM [facility] Jan 22, 2024 04:00 PM [facility] Feb 17, 2024 01:30 PM [facility]BUL[facility] May 27, 2024 02:30 PM [facility] Social History: Smoking Status (Most current) and Tobacco Use (All prior to encounter date) This section includes the most current, and the historical, smoking and tobacco- related health factors from the [place] facility where the Encounter took place. Current Smoking Status This section includes the most current smoking, or tobacco-related health factor, from the [place] facility where the Encounter took place. Date/Time Current Smoking Status Comment Facil ity Oct 03, 2023 02:37 PM VA-TOBACCO FORMER USER [facility] Tobacco Use History This section includes a history of the smoking, or tobacco-related health factors, that were collected on or before the date of the Encounter. The data comes from the [place] facility where the Encounter took place. Date/Time Smoking Status/Tobacco Use Comment F acility Oct 03, 2023 02:37 PM VA-TOBACCO QUIT 15 YRS OR MORE [facility] [place] [facility] Encounter Notes: All associated encounter notes [...] Does the patient have any cultural and quaker beliefs, emotional barriers, physical or cognitive limitations, and communication barriers which may impact his ability to learn? No Desire and motivation to learn? Good OBJECTIVE (O): Physical fit of hearing aids was good. Patient verified comfort. Verification of an appropriate acoustic response was obtained using Real Ear measurements (speech mapping) and NAL-NL2 targets. The patient reported good subjective benefit as well. Feedback brand development manager was run. Hearing aids were found to be meeting targets adequately and MPO was not exceeding estimated UCL. Settings stored in SHAWNA. ASSESSMENT (A): The following devices were issued: Make: Oticon Model: Intent 1 miniRITE-R Right Serial Number: [id number] Left Serial Number: [id number] Battery size: RECHARGEABLE Warranty ends: 12/19/26 Trial Period ends: 05/18/24 Domes/Wax guards: Prowax Wood Hacker: Size 3 85 gain Earmold: Acrylic canal [...] patient was informed of and signed/agreed to [place] policy on hearing aid issuance: Yes Users are responsible for the maintenance and security of their devices. Determination of need to replace a hearing aid is made by the [place] residential roofer. Hearing aids will not be replaced in [...] Not Applicable NA /aries/ KATJA BINGHAM STAFF DIRECTOR OF DESIGN Signed: 12/05/2023 15:32 01/22/2024 ADDENDUM STATUS: COMPLETED returned IOI-REAVES Outcome Measure to the clinic via mail with an overall score of 26 Based on this score: i. No follow-up call is indicated _XX_ ii. Follow-up call is indicated and fitting clinician will be notified __ /es/ KEITH ASKEW Audiology Health Valve Tester Signed: 01/22/2024 08:06 KATJA BINGHAMRPk [facility]
--- OUTSIDE RECORDS SUMMARY | 2024-11-10 15:34 | XMS_ITS | Continuity of Care Document ---
Author Name [facility] Organization [facility] Care Team Providers Care Statistical Typist Name Role Phone [facility] Unavailable Unavailable Problems Combined list of problems [...] Active Condition [facility] Cardiac pacemaker in situ Active Condition [facility] [...] Comment: BCC [facility] Diagnosis: ICD-10-CM Z95.0 Presence of cardiac pacemaker Active Diagnosis [facility] [...] Presence of other heart-valve replacement Active Diagnosis [facility] Diagnosis: ICD-10-CM Z02.89 Encounter for other administrative examinations Active Diagnosis [facility] Medications Combined list of outpatient medications from Department of Defense and Veterans Affairs facilities.Medications provided include 1) outpatient medications from the last 15 months, and 2) patient-reported medications. Medication Details Route Status Patient Instructions Prescription Expires Prescription Number Last Dispense Date Ordering Provider Order Date Order Qty Source ARIPIPRAZOL E TAB TAKE 5MG BY MOUTH ONCE DAILY ORAL ACTIVE FURCOLO,T 2023 [facility] [place] BRIMONIDINE 0.2%/BRINZO LAMIDE 1% SUSP,OPH INSTILL 1 DROP INTO EACH EYE TWICE A WEEK NEEDED OPHTHA LMIC ACTIVE FURCOLO,T 2023 [facility] [place] DORZOLAMIDE HCL 2% SOLN,OPH INSTILL 2 DROPS INTO THE LEFT EYE ONCE DAILY OPHTHA LMIC ACTIVE FURCOLO,T [facility] ESCITALOPRA M OXALATE 20MG TAB TAKE ONE-HALF TABLET BY MOUTH ONCE DAILY ORAL ACTIVE FURCOLO,T 2023 [facility] [place] LOTEPREDNOL ETABONATE 0.2% SUSP,OPH INSTILL 1 DROP INTO EACH EYE TWICE A WEEK NEEDED OPHTHA LMIC ACTIVE FURCOLO,T 2023 [facility] [place] [facility] OMEPRAZOLE 20MG CAP,EC TAKE 1 CAPSULE BY MOUTH EVERY MORNING 30 MINUTES BEFORE BREAKFAS T ORAL ACTIVE FURCOLO,T [facility] TERAZOSIN HCL 5MG CAP TAKE 1 CAPSULE BY MOUTH ONCE DAILY ORAL ACTIVE FURCOLO,T 2023 [facility] [place] TRAZODONE HCL 100MG TAB TAKE ONE-HALF TABLET BY MOUTH AT BEDTIME ORAL ACTIVE FURCOLO,T 2023 [facility] Allergies, Adverse Reactions, Alerts Combined list of allergies from Department of Defense and Veterans Affairs facilities. It does not include entries that were removed or entered in error. Substance Category Reaction Severity Reaction type Status Date Reported Comments Source OPIOID ANALGESICS Propensity to adverse reactions to drug (finding) Nausea and vomiting active 4 [facility] Immunizations Combined list of available immunizations from the Department of Defense and Veterans Affairs facilities. Immunization Series Date Given Administered By Site Reaction Lot Number CVX Code Drug Driller And Reamer Status Comments Source RSV, BIVALENT, PROTEIN SUBUNIT RSVPREF, DILUENT RECONSTITUTED , 0.5 ML, PF 2024 NILS CARRILLO RIGHT DELTO ID [id number] 305 complet ed Completed Series, [facility]E [facility] AT [facility] INFLUENZA, UNSPECIFIED FORMULATION 2023 88 complet ed Completed Series, HISTORICA L INFORMATI ON - [facility] PATIENT'S RECALL, [facility] COVID-19 (MODERNA), MRNA, LNP-S, BIVALENT, PF, 50 MCG/0.5 ML OR 25MCG/0.25 ML DOSE 5 2022 229 complet ed HISTORICA L INFORMATI ON - FROM OTHER REGISTRY, Covid Card Mfr: [employer] [facility] INFLUENZA, UNSPECIFIED FORMULATION 2022 88 complet ed HISTORICA L INFORMATI ON - FROM OTHER REGISTRY, [facility] COVID-19 (MODERNA), MRNA, LNP-S, PF, 100 MCG/0.5ML DOSE OR 50 MCG/0.25ML DOSE 4 2021 207 complet ed HISTORICA L INFORMATI ON - FROM OTHER REGISTRY, Covid Card Mfr: [employer] [facility] COVID-19 (MODERNA), MRNA, LNP-S, PF, 100 MCG/0.5ML DOSE OR 50 MCG/0.25ML DOSE 3 2020 207 complet ed HISTORICA L INFORMATI ON - FROM OTHER REGISTRY, Covid Card Mfr: [employer] [facility] COVID-19 (ChargeBee), MRNA, LNP-S, PF, 30 MCG/0.3 ML DOSE 2 2020 208 complet ed HISTORICA L INFORMATI ON - FROM OTHER REGISTRY, Covid Card Mfr: [employer] [facility] COVID-19 (PFIZER), MRNA, LNP-S, PF, 30 MCG/0.3 ML DOSE 1 2020 208 complet ed HISTORICA L INFORMATI ON - FROM OTHER REGISTRY, Covid Card Mfr: [employer] [facility] Vital Signs Combined list of inpatient and outpatient Vital Signs from Department of Defense and Veterans Affairs, ranging from 12 months to all on record, depending upon the facility. Vital Sign Value Date Comments Source SYSTOLIC BLOOD PRESSURE 124 10/16/19 25 13:05:27 [facility] DIASTOLIC BLOOD PRESSURE 71 025 13:05:27 [facility] PULSE OXIMETRY 96 10/15/2024 13:05:27 [facility] WEIGHT 172 10/15/2024 13:05:27 [facility] BMI 24 kg/m2 10/15/2024 13:05:27 [facility] PAIN 5 10/15/2024 13:05:27 [facility] TEMPERATURE 98 10/15/2024 13:05:27 [facility] PULSE 64 10/15/2024 13:05:27 [facility] RESPIRATION 16 10/15/2024 13:05:27 [facility] Encounters Combined list of: 1) Encounters from Department of Veterans Affairs facilities going backup to the last 18 months, not all [place] inpatient encounters are included; 2) Encounters from the Department of Defense facilities going backup to 280 months. Location Location Details Encounter Type Encounter Number Reason For Visit Attending Provider ADM Date DC Date Status Disposition Source [facility] Outpatient Encounter [id number] Diagnos is: ICD-10- CM Z02.89 Encount er for other adminis trative examina dimitri CANDIMIGUELSALO L 08/21 [facility] Outpatient Encounter [id number] Diagnos is: ICD-10- CM Z02.89 Encount er for other adminis trative examina dimitri RADHA ABBASI 09/01 [facility] En[facility] [id number] 10/02 [facility] Out[facility] Encounter [id number] 10/02 [facility] OFFICE O/P NEW [place] 60 MIN [id number] Diagnos is: ICD-10- CM Z95.4 Presenc e of other heart-v alve replace ment FURCOLO,TI NA 10/08 [facility] Outpatient Encounter [id number] 10/08 [facility] OFF/OP CNSLTJ NEW/EST MOD 40 [id number] Diagnos is: ICD-10- CM H90.A22 Snsrnrl hear loss, uni, l ear, with rstrcd hear cntra side JOE GOMEZ R 11/04 [facility] HEARING AID EXAM BOTH EARS [id number] Diagnos is: ICD-10- CM H90.3 Sensori neural hearing loss, bilater al SENIOR,HANG OLE L 11/11 [facility] HEARING SERVICE [id number] Diagnos is: ICD-10- CM Z46.1 Encount er for fitting and adjustm ent of hearing aid DONAVAN BINGHAM 12/04 [facility] HEARING AID REPAIR/MOD IFYING [id number] Diagnos is: ICD-10- CM Z46.1 Encount er for fitting and adjustm ent of hearing aid AD FORD L 01/14 [facility] EAR IMPRESSION [id number] Diagnos is: ICD-10- CM Z46.1 Encount er for fitting and adjustm ent of hearing aid CANDISALO RIVERA ABIGAIL L 01/21 [facility] HEARING AID REPAIR/MOD IFYING [id number] Diagnos is: ICD-10- CM Z46.1 Encount er for fitting and adjustm ent of hearing aid SENIORHAGN ORDONEZ L 02/16 [facility] Outpatient Encounter [id number] [facility] [place] HEARING AID CHECK BOTH EARS [id number] 1. Diagnos is: ICD-10- CM Z46.1 Encount er for fitting and adjustm ent of hearing aid AD FORD L 05/27 [facility] OFFICE O/P EST MOD 30 MIN [id number] Diagnos is: ICD-10- CM Z95.0 Presenc e of cardiac pacemak er WATSON LOZANO 10/15 [facility] Social History Combined list of available smoking, tobacco, and other social history from Department of Defense and Veterans Affairs facilities. Social History Type Response Date Comment Sourc e Tobacco smoking status NHIS VA-TOBACCO USE FORMER CIGARETTES 10/15/2024 [facility] [place] [facility] of [facility] 10/15/2024 [facility] [place] [facility] History of tobacco use ID-TOBACCO FORMER USER 10/03/2023 [facility] [place] [facility] Plan of Care List of future care activities from Department of Veterans Affairs facilities. Additional future care activities may be listed in the Assessment and Plan section. Date/Time Care Activity Care Activity Detail Facili ty 11/12/2024 AMBULATORY - REHAB MEDICINE AMBULATORY - REHAB MEDICINE [facility] [place] [facility]
== END 2024-11-10 15:09 | disposition home or self-care (01) ==
LOC: HO.HUSH 14:22
PROVIDERS: PCP Internal Medicine; Visit Provider Urology
DX: R31.29 Other microscopic hematuria (principal); N40.1 Benign prostatic hyperplasia with lower urinary tract symptoms; N13.8 Other obstructive and reflux uropathy; R35.1 Nocturia; Z13.9 Encounter for screening, unspecified
CPT/HCPCS: 99214; G2211

== ENCOUNTER 2024-11-10 14:22 | Outpatient (REF) | payer MEDICARE, OTHER, SELFPAY ==
[2022-05-17 07:12] VITALS: BP 116/70; BP 128/70
--- OUTSIDE RECORDS SUMMARY | 2024-11-10 16:39 | XMS_ITS | Continuity of Care Document ---
Author Name [facility] Organization [facility] Care Team Providers Care Lower School Spanish Teacher Name Role Phone [facility] Unavailable Unavailable Problems Combined list of problems [...] Presence of other heart-valve replacement Active Diagnosis [facility] Diagnosis: ICD-10-CM Z02.89 Encounter for other administrative examinations Active Diagnosis [facility] Medications Combined list of outpatient medications from Department of Defense and Veterans Affairs facilities.Medications provided include 1) outpatient medications from the last 15 months, and 2) patient-reported medications. Medication Details Route Status Patient Instructions Prescription Expires Prescription Number Last Dispense Date Ordering Provider Order Date Order Qty Source ARIPIPRAZOL E TAB TAKE 5MG BY MOUTH ONCE DAILY ORAL ACTIVE FURCOLO,T 2023 [facility] BRIMONIDINE 0.2%/BRINZO LAMIDE 1% SUSP,OPH INSTILL 1 DROP INTO EACH EYE TWICE A WEEK NEEDED OPHTHA LMIC ACTIVE FURCOLO,T 2023 [facility] [place] DORZOLAMIDE HCL 2% SOLN,OPH INSTILL 2 DROPS INTO THE LEFT EYE ONCE DAILY OPHTHA LMIC ACTIVE FURCOLO,T 2024 [facility] ESCITALOPRA M OXALATE 20MG TAB TAKE ONE-HALF TABLET BY MOUTH ONCE DAILY ORAL ACTIVE FURCOLO,T 2023 [facility] LOTEPREDNOL ETABONATE 0.2% SUSP,OPH INSTILL 1 DROP INTO EACH EYE TWICE A WEEK NEEDED OPHTHA LMIC ACTIVE FURCOLO,T 2023 [facility] [place] OMEPRAZOLE 20MG CAP,EC TAKE 1 CAPSULE BY MOUTH EVERY MORNING 30 MINUTES BEFORE BREAKFAS T ORAL ACTIVE FURCOLO,T 2023 [facility] TERAZOSIN HCL 5MG CAP TAKE 1 CAPSULE BY MOUTH ONCE DAILY ORAL ACTIVE FURCOLO,T 2023 [facility] TRAZODONE HCL 100MG [...] drug (finding) [facility]a and vomiting [facility] Immunizations Combined list of available immunizations from the Department of Defense and Veterans Affairs facilities. Immunization Series Date Given Administered By Site Reaction Lot Number CVX Code Drug Supervising Appraiser Status Comments Source RSV, BIVALENT, PROTEIN SUBUNIT RSVPREF, DILUENT RECONSTITUTED , 0.5 ML, PF 2024 NILS CARRILLO RIGHT DELTO ID [id number] 305 complet ed Completed Series, ADMINISTE RED AT [facility] INFLUENZA, UNSPECIFIED FORMULATION 2023 88 complet ed Completed Series, HISTORICA L INFORMATI ON - FROM PATIENT'S RECALL, [facility] COVID-19 (MODERNA), MRNA, LNP-S, BIVALENT, PF, 50 MCG/0.5 ML OR 25MCG/0.25 ML DOSE 5 2022 229 complet ed HISTORICA L INFORMATI ON - FROM OTHER REGISTRY, Covid Card Mfr: [employer] [facility] INFLUENZA, UNSPECIFIED FORMULATION 2022 88 complet ed HISTORICA L INFORMATI ON - FROM OTHER REGISTRY, [facility] COVID-19 (MODERNA), MRNA, LNP-S, PF, 100 MCG/0.5ML DOSE OR 50 MCG/0.25ML DOSE 4 2021 207 complet ed HISTORICA L INFORMATI ON - FROM OTHER REGISTRY, Covid Card Mfr: [employer] [facility] COVID-19 (MODERNA), MRNA, LNP-S, PF, 100 MCG/0.5ML DOSE OR 50 MCG/0.25ML DOSE 3 2020 207 complet ed HISTORICA L INFORMATI ON - FROM OTHER REGISTRY, Covid Card Mfr: [employer] [facility] COVID-19 ([employer]), MRNA, LNP-S, PF, 30 MCG/0.3 ML DOSE 2 2020 208 complet ed HISTORICA L INFORMATI ON - FROM OTHER REGISTRY, Covid Card Mfr: [employer] [facility] COVID-19 (PFIZER), MRNA, LNP-S, PF, 30 MCG/0.3 ML DOSE 1 2020 208 complet ed HISTORICA L INFORMATI ON - FROM OTHER REGISTRY, Covid Card Mfr: [employer] [facility] [...] to the last 18 months, not all [place] inpatient encounters are included; 2) Encounters from the Department of Defense facilities going backup to 280 months. Location Location Details Encounter Type Encounter Number Reason For Visit Attending Provider ADM Date DC Date Status Disposition Source [facility] Outpatient Encounter [id number] Diagnos is: ICD-10- CM Z02.89 Encount er for other adminis trative examina dimitri CANDIMIGUELSALO L 08/21 [facility] Outpatient Encounter [id number] Diagnos is: ICD-10- CM Z02.89 Encount er for other adminis trative examina dimitri RADHA ABBASI 09/01 [facility] En[facility] [id number] 10/02 [facility] En[facility] [id number] 10/02 [facility] OFFICE O/P [place] 60 MIN [id number] Diagnos is: ICD-10- CM Z95.4 Presenc e of other heart-v alve replace ment FURCOLO,TI NA 10/08 [facility] Outpatient Encounter [id number] 10/08 [facility] OFF/OP CNSLTJ NEW/EST MOD 40 [id number] Diagnos is: ICD-10- CM H90.A22 Snsrnrl hear loss, uni, l ear, with rstrcd hear cntra side JOE GOMEZ R 11/04 [facility] HEARING AID EXAM BOTH EARS [id number] Diagnos is: ICD-10- CM H90.3 Sensori neural hearing loss, bilater al SENIOR,HANG OLE L 11/11 [facility] HEARING SERVICE [id number] Diagnos is: ICD-10- CM Z46.1 Encount er for fitting and adjustm ent of hearing aid DONAVAN BINGHAM 12/04 [facility] HEARING AID REPAIR/MOD IFYING [id number] Diagnos is: ICD-10- CM Z46.1 Encount er for fitting and adjustm ent of hearing aid AD FORD L 01/14 [facility] EAR IMPRESSION [id number] Diagnos is: ICD-10- CM Z46.1 Encount er for fitting and adjustm ent of hearing aid CANDISALO RIVERA ABIGAIL L 01/21 [facility] HEARING AID REPAIR/MOD IFYING [id number] Diagnos is: ICD-10- CM Z46.1 Encount er for fitting and adjustm ent of hearing aid SENIORHANG ORDONEZ L 02/16 [facility] Outpatient Encounter [id number] [facility] HEARING AID CHECK BOTH EARS [id number] 1. Diagnos is: ICD-10- CM Z46.1 Encount er for fitting and adjustm ent of hearing aid AD FORD L 05/27 [facility] OFFICE O/P EST MOD 30 MIN [id number] Diagnos is: ICD-10- CM Z95.0 Presenc e of cardiac pacemak er WATSON LOZANO 10/15 [facility] Social History Combined list of available smoking, tobacco, and other social history from Department of Defense and Veterans Affairs facilities. Social History Type Response Date Comment Sourc e Tobacco smoking status NHIS VA-TOBACCO USE FORMER CIGARETTES 10/[facility]20[facility] [place] [facility] History of tobacco use [place]-TOBACCO FORMER USER 10/03/2023 [facility] Plan of Care List of future care activities from Department of Veterans Affairs facilities. Additional future care activities may be listed in the Assessment and Plan section. Date/Time Care Activity Care Activity Detail Facili ty 11/12/2024 AMBULATORY - REHAB MEDICINE [facility]
== END 2024-11-10 14:23 | disposition home or self-care (01) ==
LOC: HO.LAB 14:22
PROVIDERS: PCP Internal Medicine; Visit Provider Urology
DX: R31.29 Other microscopic hematuria (principal); N40.1 Benign prostatic hyperplasia with lower urinary tract symptoms; N13.8 Other obstructive and reflux uropathy; R35.1 Nocturia
CPT/HCPCS: 51798; 81003; 99212

== ENCOUNTER 2025-02-10 13:40 | Outpatient (AMB) | payer MEDICARE, OTHER, SELFPAY ==
[2022-05-17 07:12] VITALS: BP 116/70; BP 128/70
[2024-11-10 15:10] VITALS: BP 116/70; BP 128/70
--- NOTE | 2025-02-10 13:47 | A.OFFVIS_ITS ---
Intake Visit Reasons: Three-month follow-up office uroflow appointment Intake Note: Patient is Present for 3 mo follow up / UROFLOW Urology Med: Terazosin Antibiotic Allergy: None Blood Thinner: None TODAY'S PVR:[address] Messenger Required: No Accompanied by: Self / Same As Patient Allergies No Known Allergies Allergy (Verified 02/10/25 13:48) HPI Comments Details: Joel is a pleasant male. He is a patient of Dr. Lopez. He is seen for the following urologic conditions - elevated PSA - lower urinary tract symptoms Uroflow performed - low average flow - recommend Transurethral incision of the prostate and possible bethanechol Remains on alpha-rajendra Lower urinary tract symptoms Voiding progressive weakness of stream and nocturia Good response to terazosin 5 mg Prior therapy tamsulosin 0.4 11/20 cystoscopy small prostate PSA remains low 04/20 1.1, 08/23 1.2 PFS Medical History (Updated 11/10/24 @ 15:01 by John Meyer MD) Cardiac pacemaker Depression Fuchs' corneal dystrophy BPH (benign prostatic hyperplasia) Surgical History S/P cardiac pacemaker procedure Hx of aortic valve replacement Hx of bilateral cataract extraction Hx of inguinal hernia repair Hx of nasal septoplasty History of surgery Hx of cornea transplant Social History Patient Tobacco Use Status: Former Tobacco user Tobacco use type: Cigarette Second Hand Smoke Exposure: No Office Procedures AMB Uroflow Complex uroflow performed by: John Meyer Maximum urinary flow rate (mL/second): 15 Voiding time (seconds): 90 Voided volume (mL): 400 Residual urine (mL): 20 Comments: Lower pole average nomogram below 5th percentile on maximum flow and averag [id number] Procedure code (CPT) selection complete Assessment & Plan Assessment & Plan (1) Nocturia more than twice per night: Code(s): R35.1 - Nocturia Category: Medical (2) BPH w urinary obs/LUTS: Code(s): N40.1 - Benign prostatic hyperplasia with lower urinary tract symptoms; N13.8 - Other obstructive and reflux uropathy Category: Medical Plan We discussed the nature of the decision and reasonable options for performing a prostate intervention. Interventions include TURP, GreenLight laser enucleation of the prostate, GreenLight laser ablation of the prostate, transurethral incision of the prostate, and I-Tend prostate procedure. Options such as medical therapy were discussed. The relative uncertainties and benefits related to each alternate procedure were adequately discussed. General surgical risks including, but not limited to, pain, bleeding, infection, myocardial infarction, pulmonary embolus, deep vein thrombosis and cerebrovascular accident which may result in further hospitalization were discussed. Full disclosure of the procedure as well as all major risks, benefits and complications were discussed including but not limited to damage to the urethra or bladder neck, recurrent BPH, retrograde ejaculation, bladder infection, urge, de cindy frequency, incomplete emptying, dysuria, remote chance of erectile dysfunction, epididymitis, and meatal stenosis. The success rate of the procedure was discussed. Success of the procedure in the short-term does not necessarily guarantee that long-term success will be maintained. Suitable follow up will need to be maintained. The patient showed understanding of discussion. An opportunity was provided for questions to be answered and wishes to proceed with the following procedure. - plasma button TUIP Orders: Orders AMB Uroflow Today N13.8 - Other obstructive and reflux uropathy, N40.1 - Benign prostatic hyperplasia with lower urinary tract symptoms Patient Instructions: This note is constructed using voice recognition software. While every effort has been made to ensure accuracy envelope sealer errors may have been included. Imaging studies, laboratory and physical exam results were discussed and reviewed in detail. No major barriers to patient understanding were identified. An opportunity to ask questions regarding the treatment plan was provided. All questions were answered. The patient expressed understanding and agreement with the above treatment plan. The patient is aware they should contact our office by phone for worsening of their current condition or the appearance of new urologic symptoms. Compliance is encouraged with any medications and followup testing that is ordered. It is a privilege to participate in the urologic care of your patient. If you have any questions or concerns regarding treatment for the above conditions, or other urologic issues, please do not hesitate to contact me. The office telephone contact is [phone]. Sincerely, Dr John Meyer MD, [facility] - Urology Compassionate Specialist Care for the Genitourinary System Coding Level of Care Code Est Pt Level 4 (73857) Diagnoses Nocturia more than twice per night R35.1 BPH w urinary obs/LUTS N40.1; N13.8
== END 2025-02-10 14:23 | disposition home or self-care (01) ==
LOC: HO.HUSH 13:41
PROVIDERS: PCP Internal Medicine; Visit Provider Urology
DX: N40.1 Benign prostatic hyperplasia with lower urinary tract symptoms (principal); R35.1 Nocturia; N13.8 Other obstructive and reflux uropathy
CPT/HCPCS: 99214

== ENCOUNTER → 2025-02-10 13:40 | Outpatient (BNVA) | payer MEDICARE, OTHER, SELFPAY ==
[2024-11-10 15:10] VITALS: BP 116/70; BP 128/70
== END ==
PROVIDERS: PCP Internal Medicine; Visit Provider Urology
DX: N40.1 Benign prostatic hyperplasia with lower urinary tract symptoms (principal); N13.8 Other obstructive and reflux uropathy; R35.1 Nocturia
CPT/HCPCS: 51798; 99212

== ENCOUNTER 2025-03-29 05:45 | Day surgery (SDC) | payer MEDICARE, OTHER, SELFPAY ==
--- OUTSIDE RECORDS SUMMARY | 2024-08-07 03:30 | XMS_ITS ---
Author Organization [facility] Address [address] [place] [address] Care Team Providers Care Twisting Machine Operator Name Role Phone Russell Lopez MD Primary Care Provider Unavail able Amador Boewr Unavailable [phone] REASON FOR VISIT screening,hx polyps Problems Problem Type SNOMED Code ICD Code Onset Dates Problem Status W/U Status Risk Notes Problem Diverticulosis o f large intestine without perforation or abscess without bleeding (K57.30) Active confirmed Encounters Encounter Location Date Provider Diagnosis [facility] [place] [address] [place] [phone] 08/07/2024 Amador Bower Colon cancer scree christian [...] * CHYNA WHITEDOB: 6 (79 yo M)Acc No.[id number]:08/07/2024 COLON WITH MAC Patient: CHYNA MICHELLE Provider: Tahmina Bower MD :1945 A ge:79 Y S ex:Male Date:08/07/2024 Address: [address] [place], [place] Pcp:Russell Lopez MD Subjective: * Chief Complaints: [...] MD Date: 0 08/07/2024 Generated for Dhruv holt/Damien/Dedesmitting on: 0 02/18/2025 02:04 PM EDT
--- OUTSIDE RECORDS SUMMARY | 2025-02-18 14:04 | XMS_ITS | Patient Health Record ---
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 It has not been cleared or approved by the Food and Drug Administration. TSH 1.210 0.450-4.500 uIU/mL CBC With Differential/Platel et-[id number] Reviewed date:02/03/2025 06:39:44 PM Interpretation: Performing Lab:[facility] [place], [address] [place] [address], Phone - [phone], Director - Jodry Notes/Report: Test(s) [id number] was developed and its performance characteristics determined by [facility]. It has not been cleared or approved by the Food and Drug Administration. WBC 7.2 3.4-10.8 x10E3/uL RBC 3.69 4.14-5.80 x10E6/uL Hemoglobin 12.3 13.0-17.7 g/dL Hematocrit 37.1 37.5-51.0 % MCV 101 79-97 fL MCH 33.3 26.6-33.0 pg MCHC 33.2 31.5-35.7 g/dL RDW 13.0 11.6-15.4 % Platelets 204 150-450 x10E3/uL Neutrophils 60 Not Estab. % Lymphs 29 Not Estab. % Monocytes 8 Not Estab. % Eos 2 Not Estab. % Basos 1 Not Estab. % Neutrophils (Absolute) 4.2 1.4-7.0 x10E3/uL Lymphs (Absolute) 2.1 0.7-3.1 x10E3/uL Monocytes(Absolute) 0.6 0.1-0.9 x10E3/uL Eos (Absolute) 0.2 0.0-0.4 x10E3/uL Baso (Absolute) 0.1 0.0-0.2 x10E3/uL Immature Granulocytes 0 Not Estab. % Immature Grans (Abs) 0.0 0.0-0.1 x10E3/uL Prostate-Specific Ag-[id number] Reviewed date:02/03/2025 06:39:44 PM Interpretation: Performing Lab:[facility] [place], [address] [place] [address], Phone - [phone], Director - [facility] Notes/Report: Test(s) [id number] was developed and its performance characteristics determined by [facility]. It has not been cleared or approved by the Food and Drug Administration. Prostate Specific Ag 1.6 0.0-4.0 ng/mL Nav ECLIA methodology. . According to the [place] [employer], Serum PSA should decrease and [...] or absence of malignant disease. Vitamin D, 21-Giqnizi-439036 Reviewed date:02/03/2025 06:39:44 PM Interpretation: Performing Lab:[facility] [place], [address] [place] [address], [place], Phone - [phone], Director - [facility] Notes/Report: Test(s) [id number] was developed and its performance characteristics determined by [facility]. It has not been cleared or approved by the Food and Drug Administration. Vitamin D, 25-Hydroxy 45.6 30.0-100.0 ng/mL Vitamin D deficiency has been defined by the [place] of [employer] and an Endocrine Society practice guideline as a level of serum 25-OH vitamin D less than 20 ng/mL (1,2). The Endocrine Society went on to further define vitamin D insufficiency as a level between 21 and 29 ng/mL (2). 1. IOM ([place] of Medicine). 2010. Dietary reference intakes for calcium and D. [place]: The National Academies Press. 2. Tommie MF, Neelima JOYNER, Etelvina REAVES, et al. Evaluation, treatment, and prevention of vitamin D deficiency: an Endocrine Society clinical practice guideline. JCEM. 2010; 96(7):1911-30. Comp. Metabolic Panel (14)-3 33521 Reviewed date:02/03/2025 06:39:44 PM Interpretation: Performing Lab[facility], [address] [place] [address], [place], Phone - [phone], Director - [employer] Notes/Report: Test(s) [id number] was developed and its performance characteristics determined by [facility]. It has not been cleared or approved by the Food and Drug Administration. Glucose 98 70-99 mg/dL BUN 27 8-27 mg/dL Creatinine 1.11 0.76-1.27 mg/dL eGFR 68 >59 mL/min/1.73 BUN/Creatinine Ratio 24 10-24 Sodium 139 134-144 mmol/L Potassium 4.4 3.5-5.2 mmol/L Chloride 101 96-106 mmol/L Carbon Dioxide, Total 22 20-29 mmol/L Calcium 9.6 8.6-10.2 mg/dL Protein, Total 7.4 6.0-8.5 g/dL Albumin 4.3 3.8-4.8 g/dL Globulin, Total 3.1 1.5-4.5 g/dL Bilirubin, Total 0.5 0.0-1.2 mg/dL Alkaline Phosphatase 93 44-121 IU/L AST (SGOT) 24 0-40 IU/L ALT (SGPT) 23 0-44 IU/L LP+Non-HDL Cholesterol-85501 5 Reviewed date:02/03/2025 06:39:44 PM Interpretation: Performing Lab:[facility] [place], [address] [facility], [place], Phone - [phone], Director - [employer] Notes/Report: Test(s) [id number] was developed and its performance characteristics determined by [facility]. It has not been cleared or approved by the Food and Drug Administration. Cholesterol, Total 154 100-199 mg/dL Triglycerides 72 0-149 mg/dL HDL Cholesterol 47 >39 mg/dL VLDL Cholesterol Jordan 14 5-40 mg/dL LDL Chol Calc ([facility]) 93 0-99 mg/dL Non-HDL Cholesterol 107 0-129 mg/dL APOE Alzheimer's Risk-553511 Reviewed date:02/03/2025 06:39:44 PM Interpretation: Performing Lab:[facility] [place], [address] [facility], [place], Phone - [phone], [facility]/Report: Test(s) [id number] was developed and its performance characteristics determined by [facility]. It has not been cleared or approved by the Food and Drug Administration. Methodology: Patient DNA is assayed for the APOE genotype by PCR amplification of a specific region in exon 4 of the APOE gene followed by digestion with restriction enzyme Returning Officer I and separation of fragments by polyacrylamide gel electrophoresis. This approach allows the APOE E2, E3, and E4 alleles to be distinguished. Analytical sensitivity and specificity are >99.5%. Individuals are interpreted as having one of the following genotypes: E2/E2, E3/E3, E4/E4, E2/E3, E2/E4, E3/E4. APO E Genotyping Result: E2/E3 Interpretation: Negative for the APOE4 variant that is associated with increased risk for late onset Alzheimer's disease (AD). APOE2 may have some protective effect against the development of AD. RECOMMENDATIONS Genetic counseling is recommended. Due to the lack of measures to prevent the development of AD, the ACMG/NSGC guidelines do not recommend presymptomatic testing, but if it is performed, guidelines are provided (Khushi KURTZ et al. 2011). The APOE Genotyping: Alzheimer's Risk test is not recommended for children. NOTE: This is not a diagnostic test. Results should be interpreted along with clinical findings and other data. This test evaluates only for the APOE genotype and cannot detect genetic abnormalities elsewhere in the genome. It should be realized that there are possible sources of error including sample misidentification, rare technical errors, trace contamination of PCR reactions, and rare genetic variants that may interfere with analysis. For inquiries or genetic consultation, please call [facility] at . Comment: INFORMATION ABOUT THE APOE GENOTYPE AND ALZHEIMER'S DISEASE Alzheimer's disease (AD) is the most common form of dementia in the elderly and currently affects more than 5 million Americans. It is a progressive neurodegenerative disorder with brain findings of plaques and neurofibrillary tangles containing beta-amyloid and tau protein respectively. The predominant form of AD is late onset (age > 60-65), which can be familial (15-20%) or sporadic. The APOE4 variant increases the risk for late onset AD and may contribute to the pathology of the disease. This risk is increased by approximately 2 to 3-fold for individuals with one copy of the APOE4 variant and by approximately 10 [id number] for individuals with two copies of this variant (E4/E4 genotype). The APOE2 variant has some protective effect against development of late onset AD. The lifetime risk for late onset AD is approximately 10-12% in the general population, though it is higher in women than men and doubles when there is a first degree relative with this disorder. The lifetime risk is approximately 9% for individuals negative for APOE4, and for individuals with E4/E4 may be as high as 25% for males and 45% for females. Among patients with late onset AD, the presence of APOE4 may lead to earlier development of symptoms. However, APOE4 is neither necessary nor sufficient for the development of AD. Approximately 30-50% of patients with late onset AD do not have an APOE4 allele. APOE4 is common, with 25% of the general population having one copy and 1% having two copies of this variant. Among patients with late onset AD, 50-70% are positive for APOE4. The development of late onset AD is influenced by many factors other than APOE4 including age, gender, family history, level of education and history of head trauma. Midlife cardiovascular risk factors in individuals with APOE4 also increase risk for cognitive decline. A number of genetic influences in addition to APOE4 have also been reported and are under investigation. This test was developed and its performance characteristics determined by [facility]. It has not been cleared or approved by the Food and Drug Administration. The FDA has determined that such clearance or approval is not necessary. REFERENCES Efraín Nash et al. Sex modifies the APOE-related risk of developing Alzheimer disease. Annal Neurol 2014;75(4):563-573 Favio MATA. Alzheimer Disease Overview. [place] ([employer]). Aysha SUTHERLAND et al., editors. [facility]: Merged with [facility], [place], [place]. Last revised 2014. Khushi KURTZ et al. Genetic counseling and testing for Alzheimer disease: Joint practice guidelines of the [place] College [employer] Genetics and the National Society of Genetic Counselors. Ann in Med 2011;13(2)597-602. Fidel STEWART. Apolipoprotein E: Implications for AD neurobiology, epidemiology and risk assessment. Neurobiology of Aging 2011;32:778-790 Vitamin [id number] Reviewed date:02/03/2025 06:39:44 PM Interpretation: Performing Lab:[facility] [place], [address] [place] [address], Phone - [phone], Director - [facility] Notes/Report: Test(s) [id number] was developed and its performance characteristics determined by [facility]. It has not been cleared or approved by the Food and Drug Administration. Vitamin B12 909 573-1061 pg/mL Urinalysis, Complete-[id number] Reviewed date:02/03/2025 06:39:44 PM Interpretation: Performing Lab:[facility] [place], [address] [place] [address], [place], Phone - [phone], Director - [facility] Notes/Report: Test(s) [id number] was developed and its performance characteristics determined by [facility]. It has not been cleared or approved by the Food and Drug Administration. Test(s) [id number] was developed and its performance characteristics determined by [facility]. It has not been cleared or approved by the Food and Drug Administration. Specific Hickman 1.022 1.005-1.030 pH 5.5 5.0-7.5 Urine-Color Yellow Yellow Appearance Clear Clear WBC Esterase Negative Negative Protein Negative Negative/Trace Glucose Negative Negative Ketones Negative Negative Occult Blood Negative Negative Bilirubin Negative Negative Urobilinogen,Semi-Qn 0.2 0.2-1.0 mg/dL Nitrite, Urine Negative Negative Microscopic Examination Micr oscopic follows if indicated. Microscopic Examination See below: Micr oscopic was indicated and was performed. WBC 0-5 0 - 5 /hpf RBC 0-2 0 - 2 /hpf Epithelial Cells (non renal) None seen 0 - 10 /hpf Casts None seen None seen /lpf Bacteria None seen None seen/Few Phosphorylated Tau 217 (pTau -217) Reviewed date:02/03/2025 06:39:44 PM Interpretation: Performing Lab:[facility] [place], [address] [place] [address], [place], Phone - [phone], Director - [employer] Notes/Report: Test(s) [id number] was developed and its performance characteristics determined by [facility]. It has not been cleared or approved by the Food and Drug Administration. p-oyv407 0.14 0.00-0.18 pg/mL Clinical cutoff value was established using samples from a patient cohort characterized with amyloid PET data. A p-vcz590 value of >0.18 is a reported surrogate marker for beta amyloid pathology, and can be used to facilitate biological identification of Alzheimer's disease (1). p-hiw930 has also been used in clinical trials to monitor patients on anti-amyloid therapy (2,3). Test performed by [employer] chemiluminescent enzyme immunoassay (CLEIA). Values obtained with different methods cannot be used interchangeably. The validated limit of quantification is 0.06 pg/mL. Assay detection limit is 0.03 pg/mL. Footnotes 1. Silvio Laird, et al. Diagnostic Accuracy of a Plasma Phosphorylated Tau 217 Immunoassay for Alzheimer Disease Pathology. ANNE neurology (2023). 2. Silvio Laird, et al. Differential roles of A42/40, p-chh633 and p-lbf541 for Alzheimer's trial selection and disease monitoring. Nature medicine 28.12 (2021): 8960-2943. 3. Mis MORLEY, Sandhya M, Ambika SC, et al. Association of [place] Treatment With Exploratory Plasma Biomarkers in Early Symptomatic Alzheimer Disease: A Secondary Analysis of the TRAILBLAZER-ALZ Randomized Clinical Trial . ANNE Neurol. 2021;79(12):5876-2656. IMGEAP Reviewed date:07/24/2024 03:19:57 PM Interpretation: Performing Lab: Notes/Report: See Note [facility] [place] [facility], a member of [employer] PROCEDURE: MRI of the lumbar spine without [...] Signed Date: 07/22/2024 10:38 ET Workstation ID: [id number] Transcribed By: Self Edit Transcribed Date: 07/22/2024 10:31 ET B-Type Natriuretic Peptide-1 86056 Reviewed date:07/17/2024 02:28:23 PM Interpretation: Performing Lab:[facility] [place], [facility] [facility], Phone - [phone], Director - [employer] Notes/Report: B-Type Natriuretic Peptide 222.2 0.0-100.0 pg/m L Siemens ADVIA Centaur XP methodology Comp. Metabolic Panel (14)-3 Reviewed date:07/17/2024 02:28:23 PM Interpretation: [facility]forming [facility] [place], [address] [place] [address], Phone - [phone], Director - [employer] Notes/Report: Glucose 101 70-99 mg/dL BUN 33 [...] IU/L ALT (SGPT) 22 0-44 IU/L LP+Non-HDL Cholesterol-48670 5 Reviewed date:07/17/2024 02:28:23 PM Interpretation: Performing Lab:[facility] [place], [address] [facility], [place], Phone - [phone], Director - [employer] Notes/Report: Cholesterol, Total 145 100-199 mg/dL Triglycerides 129 0-149 mg/dL HDL Cholesterol 46 >39 mg/dL VLDL Cholesterol Jordan 23 5-40 mg/dL LDL Chol Calc (NIH) 76 0-99 mg/dL Non-HDL Cholesterol 99 0-129 mg/dL MR Lumbar Spine WO Reviewed date:07/27/2024 08:19:30 AM Interpretation: Performing Lab: Notes/Report: [facility] Informed Consent Fo rm Reviewed date:02/03/2025 06:39:45 PM Interpretation: Performing Lab:[facility], [address], [place], Phone - [phone], Director - [facility] Notes/Report: [facility] Informed Consent Form [facility] Informed Consent Form 02 Please Fax back to [phone]. Many states require laboratories to have documentation that the appropriate health care provider has obtained informed consent from patients before the laboratory conducts genetic testing. Informed consent includes the patient understanding the purpose of the test, how the test is performed, the reliability of the test, alternatives to testing, implications of test results, and options on how to instruct the laboratory to store, use or dispose of the sample when testing is complete. [facility] did not receive any documentation of informed consent for above mentioned patient and ordered tests. Please check the statement applicable to this patient and sign below so that [facility] may release the results for this patient. . [] I authorize and confirm patient consent for the above mentioned genetic test(s). . [] I have provided appropriate informed consent for the above mentioned test(s) and documentation of this consent is maintained in the patient record. . . Health care provider signature Da te . Printed name . Fax back to [facility] at [phone] . [facility] Genetic Services Reason For Referral No Information Medications Medication SIG (Take, Route, Frequency, Duration) Notes Start Date End Date Status ARIPiprazole 10 MG TAKE 1 TABLET BY TRINA TH EVERY DAY; Duration: 90 Active traZODone HCl 50 MG TAKE 1 TABLET BY TRINA TH EVERY DAY AT BEDTIME PRN; Duration: 90 days Active Aspirin 81 81 MG 1 tablet Orally Once a day Not-Taking Simbrinza 1-0.2 % PLACE 1 DROP INTO TH E LEFT EYE 2 (TWO) TIMES A DAY. Ophthalmic; Duration: 60 Not-Taking Tamsulosin HCl 0.4 MG TAKE ONE CAPSULE B Y MOUTH ONCE DAILY; Duration: 90 Active Omeprazole 20 MG TAKE 1 CAPSULE BY [facility] 30 MINUTES BEFORE THE MORNING MEAL; Duration: 90 Active Loteprednol Etabonate 0.5 % INSTILL 1 DROP INTO EACH EYE DAILY. Ophthalmic; Duration: 37 Active Escitalopram Oxalate 10 MG TAKE 1 TABLET BY MOUTH EVERY DAY FOR 30 DAYS; Duration: 90 Active Ferrous Sulfate 325 (65 Fe) MG 1 tablet Orally Once a day; Duration: 30 day(s) 03/15/2022 Active Latanoprost 0.005 % PLACE 1 DROP INTO TH E LEFT EYE NIGHTLY AT BEDTIME. Ophthalmic; Duration: 90 Unknown [facility] Formula - as directed Orally Active Metoprolol Tartrate 25 MG 1 tablet with food Orally Twice a day Unknown Immunizations Vaccine Route Administration Date Status Comme nts Td (adult) preservative free IM Intramuscular 12/20/2020 Administered RSV Unknown 10/15/2024 Administered Pneumococcal polysaccharide PCV 13 Unknown 05/17/2017 Administered Influenza (split), 3 yrs and above Unknown 05/17/2017 Administered Influenza (split), 3 yrs and above IM Intramuscular 03/17/2018 Administered Mfd by Sanofi Pasteur Influenza (Fluad) Unknown 03/18/2020 Administered Influenza (Fluad) Unknown 06/18/2021 Administered YETDS-30-Tbrsri Vaccine Unknown 09/16/2020 Administered CVZST-59-Gceozp Vaccine Unknown 10/07/2020 Administered JPGQC-55-Wgzaztm Vaccine Unknown 06/18/2021 Administered COVID-19 Moderna BiValent [...] Status Risk Notes Problem Vitamin D deficiency (06795276) Vitamin D deficiency, unspecified (E55.9) Active confirmed Problem Mixed hyperlipidemia (431188764) Mixed hyperlipidemia (E78.2) Active confirmed Problem Moderate major depression, single episode (61151646) Major depressive disorder, single episode, moderate (F32.1) Active confirmed Problem Brachial plexus disorder (2083930) Brachial plexus disorders (G54.0) Active confirmed Problem Fuchs' heterochromic cyclitis (19947585) Fuchs' heterochromic cyclitis, 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 Problem Sensorineural hearing loss of bilateral ears (disorder) (154917176) Sensorineural hearing loss, bilateral (H90.3) Active confirmed Problem Complete atrioventricular block (17482813) Atrioventricular block, complete (I44.2) Active confirmed Problem Chronic diastolic heart failure (859116666) Chronic diastolic (congestive) heart failure (I50.32) Active confirmed Problem Gastro-esophageal reflux disease without esophagitis (029719531) Gastro-esophageal reflux disease without esophagitis (K21.9) Active confirmed Problem Chondromalacia of patella (56835113) Chondromalacia patellae, 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) Active confirmed Problem Congenital stenosis of aortic valve (59464895) 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061) Active confirmed Problem Mild cognitive disorder (610583171) Mild cognitive impairment of uncertain or unknown etiology (G31.84) Active confirmed Problem Personal history of adenomatous and serrated colon polyps (Z86.0101) Active confirmed Vital Signs Heart Rate 66 /min 01/21/2025 Temperature 97.3 degrees Fahrenheit 01/21/2025 Blood pressure diastolic 54 mm Hg 01/21/2025 Oximetry 99 % 01/21/2025 Height 71 in 01/21/2025 Blood pressure systolic 116 mm Hg 01/21/2025 Weight 165 lbs 01/21/2025 BMI 23.01 kg/m2 01/21/2025 Procedures Procedure Date Ordered Date Performed Result Body Sit e COLONOSCOPY 01/29/2025 08/07/2024 N/A Encounters Encounter Location Date Provider Diagnosis Russell Lopez MD [address] [id number] 07/16/2024 Russell Lopez Major depressive disorder, single episode, moderate F32.1 ; Chronic diastolic (congestive) heart failure I50.32 ; Mixed hyperlipidemia E78.2 ; Atrioventricular block, complete I44.2 ; Presence of cardiac pacemaker Z95.0 ; Spinal stenosis, lumbar region without neurogenic claudication M48.061 ; Vitamin D deficiency, unspecified E55.9 and Brachial plexus disorders G54.0 Russell Lopez MD [address] [id number] 01/21/2025 Russell Lopez Encounter for genera l adult medical examination without abnormal findings Z00.00 ; Major depressive disorder, single episode, moderate F32.1 ; Chronic diastolic (congestive) heart failure I50.32 ; Atrioventricular block, complete I44.2 ; Presence of cardiac pacemaker Z95.0 ; Spinal stenosis, lumbar region without neurogenic claudication M48.061 ; Mixed hyperlipidemia E78.2 ; Corneal transplant status Z94.7 ; Personal history of adenomatous and serrated colon polyps Z86.0101 ; Vitamin D deficiency, unspecified E55.9 ; Encounter for screening for malignant neoplasm of colon Z12.11 ; Encounter for screening for malignant neoplasm of prostate Z12.5 ; Encounter for screening for cardiovascular disorders Z13.6 ; Encounter for immunization Z23 ; Encounter for antibody response examination Z01.84 ; Encounter for screening for other viral diseases Z11.59 ; Mild cognitive impairment of uncertain or unknown etiology G31.84 ; Sensorineural hearing loss, bilateral H90.3 and Presence of external hearing-aid Z97.4 Russell Lopez MD [address] [id number] 07/24/2024 Russell Lopez MD [address] [id number] 02/03/2025 Rsusell Lopez MD [address] [id number] 08/31/2024 Russell Lopez MD [address] [id number] 10/13/2024 Russell Lopez Assessments Encounter Date Diagnosis [...] present. Stable post valve replacement. Recheck status 01/21/2025 Encounter for general adult medical examination without abnormal findings (ICD-10 - Z00.00) General healthcare up-to-date. Check routine labs. He already has a healthcare proxy on file 01/21/2025 Major depressive disorder, single episode, moderate (ICD-10 - F32.1) He feels his mood is doing okay and he is doing well with current medical therapy. Continue same. 01/21/2025 Chronic diastolic (congestive) heart failure (ICD-10 - I50.32) Symptomatically stable. Biochemically had a slight increased BNP. He has trace edema today and can recheck BNP and if this is stable then his edema may be related to venous disease but if there is any decompensation then he may need adjustment of medical therapy 07/16/2024 Mixed hyperlipidemia (ICD-10 - E78.2) Stable on prior labs reviewed with LDL less than 70. Can recheck status 07/16/2024 Atrioventricular block, complete (ICD-10 - I44.2) Stable and unchanged. Treated by pacemaker placement 01/21/2025 Atrioventricular block, complete (ICD-10 - I44.2) Stable unchanged. He has pacemaker in place 01/21/2025 Presence of cardiac pacemaker (ICD-10 - Z95.0) Stable and unchanged. 07/16/2024 Presence of cardiac pacemaker (ICD-10 - Z95.0) Stable and unchanged. 07/16/2024 Spinal stenosis, lumbar region without neurogenic claudication (ICD-10 - M48.061) He reports that for some time now he has been having knee pain when he is asleep. About fci through the night he awakens with bilateral knee pain. In association with that there is back pain. He changes position and it improves. 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 Recommend MRI since this is analogous to neurogenic claudication. 01/21/2025 Spinal stenosis, lumbar region without neurogenic claudication (ICD-10 - M48.061) Stable at present. 01/21/2025 Mixed hyperlipidemia (ICD-10 - E78.2) Stable with LDL that is almost less than 70. 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 He recently had a colonoscopy and we need to procure the results. 01/21/2025 Vitamin D deficiency, unspecified (ICD-10 - E55.9) Stable on prior labs as reviewed. Can recheck level and consider increasing vitamin D supplementation to maintain level of 30+ 01/21/2025 Encounter for screening for malignant neoplasm of colon (ICD-10 - Z12.11) Up-to-date on colon cancer screening 01/21/2025 Encounter for screening for malignant neoplasm of prostate (ICD-10 - Z12.5) Can check PSA has prostate cancer screening realizing the limitation of this test as a screening test 01/21/2025 Encounter for screening for cardiovascular disorders (ICD-10 - Z13.6) Blood pressure is stable. Can check for comorbidity of hyperlipidemia and hyperglycemia to further assess risk. 01/21/2025 Encounter for immunization (ICD-10 - Z23) Vaccines up to date 01/21/2025 Encounter for antibody response examination (ICD-10 - Z01.84) He would be considered immune to rubeola by virtue of his age 0701/21/2025 Encounter for screening for other viral diseases (ICD-10 - Z11.59) Hepatitis C screening has already been performed 01/21/2025 Mild cognitive impairment of uncertain or unknown etiology (ICD-10 - G31.84) He may have some mild cognitive impairment. He is interested in evaluation for treatable and reversible causes of cognitive impairment 01/21/2025 Sensorineural hearing loss, bilateral (ICD-10 - H90.3) Stable and unchanged. He continues to use hearing aids 01/21/2025 Presence of external hearing-aid (ICD-10 - Z97.4) Stable and unchanged 07/16/2024 Other This note was created with voice dictation recognition software and may contain errors of grammar and syntax. Also labs were reviewed with patient. 01/21/2025 Other This note was created with voice [...] Next Appt Details Provider Name:Russell Lopez , 07/22/2025 01:30:00 PM, [address] [place] [address], [phone], Provider Name:Russell Lopez , 02/09/2026 01:00:00 PM, [address] [place] [address], [phone], Insurance Providers Payer Name Payer Address Payer Phone Subscriber Number Group Number Insured Name Patient Relationship to Insured Coverage Start Date Coverage End Date MEDICARE [address] [place] [phone] [id number] Joel Martinez Self - patient is the insured [facility] [address] [place] [address] [id number] Joel Martinez Self - patient is the [...]
--- OUTSIDE RECORDS SUMMARY | 2025-02-18 14:05 | XMS_ITS | Patient Health Record ---
Author Organization [facility] roseline Jackson Address [address] [place] [address] Care Team Providers Care Manager Therapy Name Role Phone Michael Stauffer MD Primary Care Provider Les Santana Unavailable [phone] Allergies Allergen (clinical drug ingredient) Drug/Non Drug Allergy documented on EMR Reaction Allergy Type Onset Date Status morphine Morphine vomiting Drug Allergy Active meperidine demerol vomiting Drug Allergy Active Reason For Referral No Information Medications Medication SIG (Take, Route, Frequency, Duration) Notes Start Date End Date Status Flomax 0.4 MG 1 capsule 30 minutes after the same meal each day Orally Once a day; Duration: 30 day(s) Active Problems Problem Type SNOMED Code ICD Code Onset Dates Problem Status W/U Status Risk Notes Problem Disorder of joint of ankle and/or foot (144828403) Arthritis - Degenerative (719.97) Active confirmed Problem Hammer toe (609117376) Hammer toe (735.4) Active confirmed Problem 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 ([facility] [address] [place], [place] [id number] Joel Martinez Self - patient is the insured Medical (General) History Medical History History ICD Code back, hip, knee pain measles Surgical History Surgery Date(Month/Year) hernia 1989
--- OUTSIDE RECORDS SUMMARY | 2025-02-18 14:05 | XMS_ITS | Clinical Summary ---
Author Organization [facility] Address [address] [place] [address] [place] [address] Phone Care Team Providers Care Litigation Docket Manager Name Role Phone Brooks Lopez MD Primary Care Provider [phone] Allergies Active Allergy Reactions Criticality Noted Date Comments Opioids - Morphine Analogues Other (See Comments) 11/24/2010 body ~shuts down~ Other Nausea And Vomiting 01/06/2024 Other Reaction(s): Seasonal allergic rhinitis Phs Other Free Text-See Phs Viewer 06/08/2010 General anesthesia Medications meloxicam (MOBIC) 15 MG tablet TAKE 1 TABLET BY MOUTH EVERY DAY WITH FOOD OR MILK 0 08/06/2016 Active tamsulosin (FLOMAX) 0.4 mg Cp24 TAKE ONE CAPSULE BY MOUTH 30 MINUTES AFTER SAME MEAL EVERY DAY 3 06/06/2016 Active omeprazole (PRILOSEC) 20 MG capsule TAKE 1 CAPSULE BY MOUTH EVERY DAY 30 MINUTES BEFORE THE MORNING MEAL 08/23/2019 Active traZODone (DESYREL) 50 MG tablet Take 50 mg by mouth nightly at bedtime as needed. 07/22/2020 Active aspirin 81 MG EC tablet Take 81 mg by mouth. 03/06/2022 Active ARIPiprazole (ABILIFY) 10 MG tablet 1 tablet Orally Once a day Active terazosin (HYTRIN) 5 MG capsule Take 5 mg by mouth. 10/09/2023 Active metoprolol tartrate (LOPRESSOR) 25 MG tablet 1 tablet with food Orally Twice a day 03/06/2022 Active escitalopram oxalate (LEXAPRO) 10 MG tablet TAKE 1 TABLET BY MOUTH EVERY DAY FOR 30 DAYS for 90 Active loteprednol (LOTEMAX) 0.5 % ophthalmic suspensionIndic ations:Disorder of corneal graft Place 1 drop into the left eye daily. Allow for spillage. 10 mL 4 09/01/2024 Active brimonidine (ALPHAGAN) 0.2 % ophthalmic solution Place 1 drop into the left eye 2 (two) times a day. 20 mL 4 09/11/2024 Active dorzolamide (TRUSOPT) 2 % ophthalmic solution Place 1 drop into the left eye 2 (two) times a day. 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 Open angle with borderline findings, low risk, b ilateral 06/14/2017 Disorder of corneal graft 09/21/2016 Hearing loss 06/08/2010 Overview (08/21/2014): Hearing loss; Right Benign prostatic hyperplasia 06/08/2010 Overview (08/21/2014): Benign enlargement of prostate Low back pain 06/08/2010 Overview (08/21/2014): Low back pain Cataract 01/23/2010 Overview (08/21/2014): Cataract; OS Encounters Date Type Department Care Team Description 01/22/2025 1:00 PM EDT Office Visit [facility] [place] [address] Chandrakant Rodriguez MD, MPH Nonexudative age-related macular degeneration, bilateral, intermediate dry stage (Primary Dx); Vitelliform macular dystrophy; Cystoid macular edema of left eye 11/20/2024 2:30 PM EDT Office Visit [facility] [place] [address] Kofi Boles MD Fuchs' corneal dystrophy of right eye (Primary Dx); History of corneal transplant from Last 3 Months Family History Medical History Relation Comments Cataracts Father Cataract Cataracts Mother Cataract Relation Status Comments Father Mother Social History Tobacco Use Types Packs/Day Years Used Date Smoking Tobacco: Former Smokeless Tobacco: Never Alcohol Use Standard Drinks/Week Comments Yes 0 (1 standard drink = 0.6 oz pur e alcohol) Education Answer Date Recorded Are you interested in more education? Not on rianna e 10/26/2022 Are you concerned about learning? Not on file 10/26/2022 No 10/26/2022 No 10/26/2022 Digital Access Answer Date Recorded No 11/26/2022 No 11/26/2022 Reliable internet access at home? Not on file 11/26/2022 Device with a working camera? Not on file Sex and Gender Information Value Date Recorded Sex Assigned at Not on file Legal Sex Male 7:28 AM EST Gender Identity Not on file Sexual Orientation Not on file Plan of Treatment Upcoming Encounters Date Type Department Care Team (Late st Contact Info) Description 03/18/2025 9:45 AM EDT Office Visit [facility] in [address] [address] Bandar Clark MD, PhD [address] [place] [phone] [email or web address] 03/18/2025 10:00 AM EDT Procedure visit [facility] in [address] [address] 11/26/2025 1:15 PM EDT Office Visit [facility] in [address] [address] Kofi Boles MD [address] [place] [phone] [email or web address] 01/28/2026 12:30 PM EDT Office Visit [facility] in [address] [address] Chandrakant Rodriguez MD, MPH [address] [place] [phone] ([email or web address]) [email or web address] 01/28/2026 12:45 PM EDT Procedure visit [facility] in [address] [address] Health Maintenance Due Date Last Done Comments LIPID PANEL 1946 DEPRESSION SCREENING 1958 SMOKING Hx and SMOKELESS TOBACCO SCREENING 1959 HEPATITIS C SCREENING 1964 ZOSTER VACCINES (1 of 2) 1996 PNEUMOCOCCAL VACCINES (50+ years) (2 of 2 - PPSV23) 06/27/2020 06/27/2019, 05/17/2017 RSV VACCINE (1 - 1-dose 75+ series) 2021 COVID-19 VACCINE (4 - 2023-2 5 season) 2024 06/18/2021, 10/07/2020, 09/16/2020 Adult Td,Tdap Booster 12/20/2030 12/20/2020 HEPATITIS A VACCINES Aged Out No long er eligible based on patient's age to complete this topic HIB VACCINES Aged Out No longer eligi ble based on patient's age to complete this topic MENINGOCOCCAL VACCINES (ACWY) Aged Out No longer eligible based on patient's age to complete this topic MENINGOCOCCAL VACCINES (B) Aged Out N o longer eligible based on patient's age to complete this topic Medical Devices Not on file Procedures Procedure Name Priority Date/Time Associated Diagnosis Comments OCT, RETINA - OU - BOTH EYES Routine 01/22/2025 12:26 PM EDT Nonexudative age-related macular degeneration, bilateral, intermediate dry stage Vitelliform macular dystrophy ENDOTHELIAL PHOTO AND CELL COUNT - OU - BOTH EYES Routine 11/20/2024 3:21 PM EDT Fuchs' corneal dystrophy of right eye from Last 3 Months Results * OCT, RETINA - OU - BOTH EYES - Cirrus (01/22/2025 12:26 PM EDT) Other Narrative HARMONY - 01/22/2025 1:34 PM EDT Right Eye Findings include drusen. Left Eye Findings include drusen. General Details Testing performed by: EOG. us Chandrakant Rodriguez MD, MPH OPHTHALMOLOGY IMAGING Triny toussaint Result HARMONY * Endothelial Photo and Cell Count - OU - Both Eyes (11/20/2024 3:21 PM EDT) Anatomical Region Laterality Modality Head Photography Other Narrative 11/20/2024 3:35 PM EDT Testing performed by: EVM. Notes See MBR Notes us Kofi Boles MD OPHTHALMOLOGY IMAGING Final Result from Last 3 Months Insurance MEDICARE PART A & B [facility] EX[employer]ENSION MEDICARE SUPPLEMENT MEDICARE PART A & B [employer] MEDICARE SUPPLEMENT MEDICARE PART A & B [employer] MEDICARE SUPPLEMENT MEDICARE PART A & B [employer] MEDICARE SUPPLEMENT MEDICARE PART A & B [employer] MEDICARE SUPPLEMENT MEDICARE PART A & B [facility] MEDICARE SUPPLEMENT MEDICARE PART A & B [facility] EXTENSION MEDICARE SUPPLEMENT MEDICARE PART A & B Member Subscriber Plan / Payer ( fective 2011-Present) Name:Joel White Member ID:[id number] Relation to Subscriber:Self Name:JOEL WHITE Subscriber ID:[id number] Payer ID:[id number] Group ID:Not on file Type:Medicare Address: [employer] [address] [place] [phone] [facility] EXTENSION MEDICARE SUPPLEMENT MEDICARE PART A & B [facility] EX[employer]ION MEDICARE SUPPLEMENT MEDICARE PART A & B [facility] EXTENSION MEDICARE SUPPLEMENT THIERRY [place] ALICE [id number] MEDICARE PART A & B [facility] EX[employer]ION MEDICARE SUPPLEMENT THIERRY MARGO HARRISON KEISHAALICE ABRAHAM [id number] Care Teams Litigation Docket Manager Relationship Specialty Start Date End Date Brooks Lopez MD [address] [place] [phone] [email or web address] PCP - General Internal Medicine 07/30/19 Additional Source Comments The information contained in this document represents components of the legal health record. It is not the complete legal health record.[facility]
--- OUTSIDE RECORDS SUMMARY | 2025-02-18 14:05 | XMS_ITS | Clinical Summary ---
Author Organization [facility] Address [address] [place] [address] Phone Care Team Providers Care Body Shop Floorperson Name Role Phone Physician, Pcp Unknown Primary Care Provider Bobbi vailable Social History Tobacco Use Types Packs/Day Years Used Date Smoking Tobacco: Never Assessed Sex and Gender Information Value Date Recorded Sex Assigned at Not on file Legal Sex Male 5:33 PM EST Gender Identity Not on file Sexual Orientation Not on file Plan of Treatment Health Maintenance Due Date Last Done Comments RSV Immunization Adult Patients (1 - 1-dose 75+ series) 2021 Zoster Vaccines (2 of 2) 03/31/2024 02/04/2024 Depression Screening 07/01/2024 Cholesterol Screening (Lipid Panel) 07/20/2024 Falls Risk Assessment 07/20/2024 Hepatitis C Screening 07/20/2024 Medicare Annual Wellness Visit 07/20/2024 Social Influencers of Health Screening 07/20/2024 COVID-19 Vaccine ( season) 2024 04/25/2024, 04/09/2023, 06/17/2022, Additional history exists Influenza Vaccine (#1) 2025 , 04/09/2023, 03/01/2023, Additional history exists DTaP,Tdap,and Td Vaccines (2 - Td or Tdap) 12/20/2030 12/20/2020 Pneumococcal Vaccine: 50+ Years Completed 01/16/2024, 06/27/2019, 05/17/2017 HIB Vaccines Aged Out No longer eligi ble based on patient's age to complete this topic HPV Vaccines Aged Out No longer eligi ble based on patient's age to complete this topic Hepatitis A Vaccines Aged Out No long er eligible based on patient's age to complete this topic Hepatitis B Vaccines Aged Out No long er eligible based on patient's age to complete this topic IPV Vaccines Aged Out No longer eligi ble based on patient's age to complete this topic MMR Vaccines Aged Out No longer eligi ble based on patient's age to complete this topic Meningococcal ACWY Vaccine Aged Out N o longer eligible based on patient's age to complete this topic Meningococcal B Vaccine Aged Out No l onger eligible based on patient's age to complete this topic RSV Immunization Patients Under 20 months Aged Out No longer eligible based on patient's age to complete this topic Varicella Vaccines Aged Out No longer eligible based on patient's age to complete this topic Insurance MEDICARE Care Teams Body Shop Floorperson Relationship Specialty Start Date End Date Physician, Pcp Unknown PCP - General 07/23/24
[2025-02-18 14:07] VITALS: BP 116/70; BP 128/70
[2025-03-25 07:59] VITALS: BMI 22.2
--- NOTE | 2025-03-25 09:26 | HO.ANESPROP2 ---
Documented by User: Bri Spann NP 03/25/25 09:28 HPI - Anesthesia Eval Consult details Narrative: 79yo M for TUR Prostate (Incision of Prostate and Bipolar Button) Cardiac optimized Follows PSYCHIATRIC Cardiology for: s/p AVR 2021 pacer in situ 2021 for CHB Non-obstructive CAD PMFSH Active Problems Active Problems: All Active Problems Microscopic hematuria (Acute) Nocturia more than twice per night (Acute) BPH w urinary obs/LUTS (Acute) Past Medical History Medical History (Updated 03/25/25 @ 07:59 by Lana Carreon RN) CAD (coronary artery disease) Severe aortic stenosis Cardiac pacemaker Depression Fuchs' corneal dystrophy BPH (benign prostatic hyperplasia) Family History Family history of problems with anesthesia: No Surgical History Surgical History (Updated 03/25/25 @ 07:59 by Lana Carreon RN) S/P cardiac pacemaker procedure Hx of aortic valve replacement (~2021) Hx of bilateral cataract extraction Hx of inguinal hernia repair Hx of nasal septoplasty History of surgery Hx of cornea transplant History of Problems with Anesthesia: No Social History Social History Patient Tobacco Use Status: Former Tobacco user Tobacco use type: Cigarette Second Hand Smoke Exposure: No Use of substances other than those prescribed or required for medical reasons: No Advance Directives: No Advance Directives Information Provided: Yes Meds Allergies Allergy/AdvReac Type Severity Reaction Status Date / Time No Known Allergies Allergy Verified 02/10/25 13:48 Home Medications ?Medication ?Instructions ?Recorded ?Confirmed ?Last Taken ?Type brinzolamide 1 %-brimonidine 0.2 % 1 drp ophthalmic (eye) TID 09/01/21 03/29/25 03/28/25 20:00 History eye drops,suspension (Simbrinza) escitalopram oxalate 10 mg tablet 10 mg PO DAILY 09/01/21 03/29/25 03/28/25 08:00 History latanoprost 0.005 % eye drops 1 drp ophthalmic (eye) BEDTIME 09/01/21 03/29/25 03/28/25 08:00 History loteprednol etabonate 0.5 % eye 1 drp ophthalmic (eye) DAILY 09/01/21 03/29/25 03/28/25 08:00 History drops,suspension trazodone 50 mg tablet 50 mg PO BEDTIME 09/01/21 03/29/25 03/28/25 20:00 History aripiprazole 10 mg tablet 10 mg PO DAILY 08/05/24 03/29/25 03/28/25 08:00 History Exam Height,Weight and Vital Signs: Height 6 ft 1 in Weight 76.2 kg Narrative Narrative: Per cardiac clear note: Assessment and Plan Assessment Anesthesia Assessment: Chart Reviewed Final Anesthetic Review Family History of Problems with Anesthesia: No History of Problems with Anesthesia: No Documented by User: Panchito Martin MD 03/29/25 07:17 [facility] Past Medical History Medical History (Updated 03/25/25 @ 07:59 by Lana Carreon RN) CAD (coronary artery disease) Severe aortic stenosis Cardiac pacemaker Depression Fuchs' corneal dystrophy BPH (benign prostatic hyperplasia) Functional capacity: independent ambulation Surgical History Surgical History (Updated 03/25/25 @ 07:59 by Lana Carreon RN) S/P cardiac pacemaker procedure Hx of aortic valve replacement (~2021) Hx of bilateral cataract extraction Hx of inguinal hernia repair Hx of nasal septoplasty History of surgery Hx of cornea transplant Social History Social History Patient Tobacco Use Status: Former Tobacco user Tobacco use type: Cigarette Second Hand Smoke Exposure: No Use of substances other than those prescribed or required for medical reasons: No Advance Directives: No Advance Directives Information Provided: Yes Meds Allergies Allergy/AdvReac Type Severity Reaction Status Date / Time No Known Allergies Allergy Verified 02/10/25 13:48 Home Medications ?Medication ?Instructions ?Recorded ?Confirmed ?Last Taken ?Type brinzolamide 1 %-brimonidine 0.2 % 1 drp ophthalmic (eye) TID 09/01/21 03/29/25 03/28/25 20:00 History eye drops,suspension (Simbrinza) escitalopram oxalate 10 mg tablet 10 mg PO DAILY 09/01/21 03/29/25 03/28/25 08:00 History latanoprost 0.005 % eye drops 1 drp ophthalmic (eye) BEDTIME 09/01/21 03/29/25 03/28/25 08:00 History loteprednol etabonate 0.5 % eye 1 drp ophthalmic (eye) DAILY 09/01/21 03/29/25 03/28/25 08:00 History drops,suspension trazodone 50 mg tablet 50 mg PO BEDTIME 09/01/21 03/29/25 03/28/25 20:00 History aripiprazole 10 mg tablet 10 mg PO DAILY 08/05/24 03/29/25 03/28/25 08:00 History Exam Exam Date and Time: 03/29/25 Airway Mallampati Class: III TM Dist: >3cm Neck ROM: Full Loose/Missing/Broken Teeth: No Heart: rrr Lungs: cta Other: normal Assessment and Plan Assessment Anesthesia Assessment: Anesthesia Plan Discussed Final Anesthetic Review NPO: Yes ASA Class: III Final Preanesthetic Review: No Changes in Pt Med Stat, Meds/Allgs Chart Reviewed, Consent Obtained/Reviewed and Anes Risks/Benef Reviewed Patient Risk: Intermediate Procedure Risk: Intermediate Anesthetic Plan Anesthetic Plan: GA Disposition: Standard PACU
[2025-03-29] VITALS (7 sets, daily range): BP systolic 100–137; BP diastolic 51–64; PULSE 60–70; RESP 16–18; TEMP 36.1–36.4; O2SAT 95–99
[2025-03-29] MEDS: Lactated Ringers 1,000 ML 100 ML IVCONT (06:29)
--- NOTE | 2025-03-29 07:33 | MHC.SHP ---
Pre-Procedural Eval Section A - 24 Hr Update-Section A only Date of Service: 03/29/25 The patient is an INPATIENT: No Changes since office visit: No Cold of Flu in the past 2 weeks, No New Medical Problems, No Changes in Medication and No Patient answered all questions The patient has been examined within 24 hours of the surgical procedure. The History & Physical has been completed within 30 days and I have reviewed it.: Yes Section B - Complete if H&P > 30 days Chief Complaint: Benign prostatic hyperplasia without lower urinary Allergies: Allergies Allergy/AdvReac Type Severity Reaction Status Date / Time No Known Allergies Allergy Verified 02/10/25 13:48 Plan I have reviewed the history and physical and performed a pertinent physical examination on my patient. No changes have occurred unless specified. Time Spent With Patient Time: Total time managing care of this patient today ____ minutes.
--- NOTE | 2025-03-29 08:06 | P.OP_ITS ---
Operative Note Operative Note Date of Service: 03/29/25 Narrative: PreOperative Diagnosis: Bladder outlet obstruction Post Operative Diagnosis: Bladder outlet obstruction Procedure: CPT 68557 - Transurethral electrosurgical prostate resection Surgeon: Dr John Meyer Anesthesia: General History of bladder outlet obstruction. Treated with alpha-rajendra and other medications. Still with symptoms. On cystoscopy in office has tight bladder neck. Recommendation for prostate procedure with plasma button Transurethral electrosurgical prostate resection. Size of prostate less than 40 cc. Risks and benefits have been discussed. Focus was placed on development of retrograde ejaculation which is a normal part of this procedure. Procedure: After informed consent was verified the patient was brought to the operating room and placed in a supine position. Anesthesia was administered per protocol. Patient was placed in modified dorsal lithotomy position and prepped and draped in a sterile fashion. Safety pause time-out was confirmed. Antibiotics have been given. A Twenty-four [place] cystoscope with visual obturator was inserted per urethra. No abnormalities were found of the anterior and bulbar urethra. The prostatic urethra shows tight bladder neck. The bladder was examined and both ureteric orifices were seen in their normal positions away from the area of interest. Bladder trabeculation Grade 1. The visual obturator was removed and replaced with a plasma button resection loop. Using the plasma button incisions were made at the 5 and 7 o'clock position. The initial incision was made at the 7 o'clock position starting level with the bladder neck and in line with ureteric orifice on that side. The groove was extended distally to the area just proximal of the veru. This groove was deepened with multiple passes to define the lateral aspects of the median lobe area. The proximal portion of the groove was extended through the bladder neck and remained in line with the ureteric orifice on each side. The goal was to reveal prostate strands from trhe surgical capsule. Once clearly defined the groove was extended in the lateral direction. The 05:00 o'clock position groove was then created in a similar fashion. The intervening median lobe was then resected and enucleated tissue released into the bladder. The deep boundary of resection was defined by the prostate surgical capsule. In this case due to the smaller prostate size a decision was made not to proceed with further resection of the lateral lobes. At completion debris and pieces of prostate were removed from the bladder with irrigation. Both ureteric orifices were reviewed again in shown to be patent in away from any areas of energy damage. The apical area was reviewed and any stray mucosal ooze was controlled. A 22 [place] 30 cc balloon Zhang catheter was placed into the bladder using a flexible stylet. Clear efflux was obtained upon irrigation with a Margy piston syringe. 30 cc was placed in the balloon and gentle traction was placed. A snap was used to hold tension on the catheter to control bleeding during patient moved and transported. A drainage bag was placed. Once transportation is complete to the PACU the snap will be removed. The patient tolerated the procedure well, he was extubated in the operating and transferred in a stable condition to the recovery area. Pathology: Prostate tissue Drains: Zhang catheter
== END 2025-03-29 09:49 | disposition home or self-care (01) ==
PROVIDERS: PCP Internal Medicine; Visit Provider Urology
PROC: 0VT08ZZ Resection of Prostate, Via Natural or Artificial Opening Endoscopic (ICD-10-PCS; CPT 52601; principal; 2025-03-29 07:30)
DX: N40.1 Benign prostatic hyperplasia with lower urinary tract symptoms (principal); N13.8 Other obstructive and reflux uropathy; R35.1 Nocturia; I25.10 Atherosclerotic heart disease of native coronary artery without angina pectoris; Z95.0 Presence of cardiac pacemaker; I35.0 Nonrheumatic aortic (valve) stenosis; Z95.2 Presence of prosthetic heart valve; F32.A Depression, unspecified; H18.519 Endothelial corneal dystrophy, unspecified eye; Z94.7 Corneal transplant status; Z79.899 Other long term (current) drug therapy; Z87.891 Personal history of nicotine dependence
CPT/HCPCS: 52601; A4649; J1956; J2003; J2704; J3010

== ENCOUNTER → 2025-03-29 05:45 | Outpatient (BNV) | payer MEDICARE, OTHER, SELFPAY ==
[2025-02-18 14:07] VITALS: BP 116/70; BP 128/70
== END ==
PROVIDERS: PCP Internal Medicine; Visit Provider Urology
DX: N32.0 Bladder-neck obstruction (principal)
CPT/HCPCS: 52601

== ENCOUNTER 2025-04-27 15:22 | Outpatient (AMB) | payer MEDICARE, OTHER, SELFPAY ==
--- OUTSIDE RECORDS SUMMARY | 2024-08-07 03:30 | XMS_ITS ---
Author Organization [facility] Address [address] [place] [address] Care Team Providers Care Adult Care Provider Name Role Phone Russell Lopez MD Primary Care Provider Unavail able Amador Bower Unavailable [phone] REASON FOR VISIT screening,hx polyps Problems Problem Type SNOMED Code ICD Code Onset Dates Problem Status W/U Status Risk Notes Problem Diverticular disease of colon (926979536) Diverticulosis of large intestine without perforation or abscess without bleeding (K57.30) Active confirmed Encounters Encounter Location Date Provider [place] [facility] [facility] [place] [address] [place] [id number] 08/07/2024 Amador Bower Colon cancer scree christian Z12.11 ; Colon polyps K63.5 ; Diverticulosis of large intestine without perforation or abscess without bleeding K57.30 and Other hemorrhoids K64.8 Assessments Encounter Date Diagnosis (ICD Code) Assessment Notes Treatment Notes Treatment Clinical Notes Section Notes 08/07/2024 Colon cancer screening (ICD-10 - Z12.11) 08/07/2024 Colon polyps (ICD-10 - K63.5) 08/07/2024 Diverticulosis of large intestine without perforation or abscess without bleeding (ICD-10 - K57.30) 08/07/2024 Other hemorrhoids (ICD-10 - K64.8) Plan Of Treatment No Information Progress Notes * CHYNA WHITEDOB: 6 (79 yo M)Acc No.[id number]:08/07/2024 COLON WITH MAC Patient: Lyndsay CHYNA SAUER Provider: Tahmina Bower MD :1945 A ge:79 Y S ex:Male Date:08/07/2024 Address: [address], [id number] Pcp:Russell Lopez MD Subjective: * Chief Complaints: * 1 . Screening,hx polyps. * Medical History: Objective: * Vitals: Assessment: * Assessment: 1. C olon cancer screening - Z12.11 (Primary) 2 . C olon polyps - K63.5? 3. D iverticulosis of large intestine without perforation or abscess without bleeding - K57.30 4 . O ther hemorrhoids - K64.8 Plan: * Treatment: * Procedure Codes: 4 5385 LESION REMOVAL COLONOSCOPY, Modifiers: PT , 0529F INTRVL 3+YRS PTS CLNSCP DOCD, 0528F RCMND FLW-UP 10 YRS DOCD, Modifiers: 1P * * The named appointment provid er may or may not be the originator of this progress note, and it is not deemed complete until electronically signed by the appointment provider. Sign off status: Pending * Provider: Tahmina Bower MD Date: 0 08/07/2024 Generated for Dhruv holt/Damien/Veronicaitting on: 1 07:46 PM EDT
[2025-02-18 14:07] VITALS: BP 116/70; BP 128/70
--- NOTE | 2025-04-27 15:24 | A.OFFVIS_ITS ---
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 He is a patient of Dr. Lopez. He is seen for the following urologic conditions - elevated PSA - lower urinary tract symptoms Follow-up from transurethral incision of the prostate Off alpha-rajendra Had intermittent self-limited bleeding Discussed this is likely to a scab falling off prostate Significantly improved stream We will come off tamsulosin Six-month follow-up check PSA Lower urinary tract symptoms Voiding progressive weakness of stream and nocturia Good response to terazosin 5 mg Prior therapy tamsulosin 0.4 11/20 cystoscopy small prostate PSA remains low 04/20 1.1, 08/23 1.2 PFS Medical History (Updated 03/25/25 @ 07:59 by Lana Carreon RN) CAD (coronary artery disease) Severe aortic stenosis Cardiac pacemaker Depression Fuchs' corneal dystrophy BPH (benign prostatic hyperplasia) Surgical History (Updated 03/25/25 @ 07:59 by Lana Carreon RN) S/P cardiac pacemaker procedure Hx of aortic valve replacement (~2021) Hx of bilateral cataract extraction Hx of inguinal hernia repair Hx of nasal septoplasty History of surgery Hx of cornea transplant Social History Patient Tobacco Use Status: Former Tobacco user Tobacco use type: Cigarette Second Hand Smoke Exposure: No Review of Systems Const Denies chills and Denies fever(s) Card Reports no additional complaints and Denies syncope Resp Denies cough GI Denies abdominal pain and Denies heartburn Reports as per HPI and Denies change in libido Neuro Denies syncope Psych Denies change in libido Endo Denies change in libido Physical Exam Const General: cooperative, healthy appearing, comfortable and no acute distress Orientation/consciousness: patient oriented x3 HEENT Face and sinus: Yes normal facial exam Mouth: moist mucous membranes Neck Neck: Yes normal visual inspection, Yes full ROM and Yes trachea midline Chest Chest palpation & inspection: normal inspection of the chest Resp Effort & Inspection: normal respiratory effort, able to speak in complete sentences and no respiratory distress GI Inspection: Yes normal to inspection Back/Spine/Pelvis Cervical Spine: normal cervical lordosis Thoracic/Lumbar Spine: thoracic and lumbar spine normal to inspection Skin General skin exam: no rashes or lesions noted Neuro General: patient oriented x3, gait normal, tone normal and moves all extremities Extrem General: Yes normal to inspection and Yes capillary refill normal Assessment & Plan Assessment & Plan (1) Nocturia more than twice per night: Code(s): R35.1 - Nocturia Category: Medical (2) BPH w urinary obs/LUTS: Code(s): N40.1 - Benign prostatic hyperplasia with lower urinary tract symptoms; N13.8 - Other obstructive and reflux uropathy Category: Medical Plan Six-month follow-up PSA Orders: Orders Prostate Specific Antigen 6 Months N13.8 - Other obstructive and reflux uropathy, N40.1 - Benign prostatic hyperplasia with lower urinary tract symptoms Patient Instructions: This note is constructed using voice recognition software. While every effort has been made to ensure accuracy incendiary powder mixer errors may have been included. Imaging studies, laboratory and physical exam results were discussed and reviewed in detail. No major barriers to patient understanding were identified. An opportunity to ask questions regarding the treatment plan was provided. All questions were answered. The patient expressed understanding and agreement with the above treatment plan. The patient is aware they should contact our office by phone for worsening of their current condition or the appearance of new urologic symptoms. Compliance is encouraged with any medications and followup testing that is ordered. It is a privilege to participate in the urologic care of your patient. If you have any questions or concerns regarding treatment for the above conditions, or other urologic issues, please do not hesitate to contact me. The office telephone contact is [phone]. Sincerely, Dr John Meyer MD, [facility] - Urology Compassionate Specialist Care for the Genitourinary System Coding Level of Care Code Est Pt Level 3 (10650) Diagnoses Nocturia more than twice per night R35.1 BPH w urinary obs/LUTS N40.1; N13.8
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
--- OUTSIDE RECORDS SUMMARY | 2025-04-27 19:46 | XMS_ITS ---
Author Name Mariam Paula Address Unknown Organization [facility] Care Team Providers Care Statistical Clerk Name Role Phone Unavailable Primary Care Physician Unavailab le History Of Present Illness This is a 79 year old male who is an established patient who is being seen for an evaluation of skin lesions.Location: body throughoutQuality: asymptomaticDuration: yearsPertinent History: actinic keratoses, basal cell skin cancer , and squamous cell skin cancer Pertinent Negatives: no family history of melanoma and no family history of non-melanoma skin cancerAdditional Visit Reasons: education and counseling about sun exposure, evaluation for suspicious growths, evaluation of current nevi, and surveillance against skin cancer recurrencesAdditional History: Patient presents for a CSE. No concerns. Medications Medication Generic Name RxNorm Strength Strength Unit Route Dose Dose Form Frequency Date Started Date Ended Status Indication Sig latanoprost (PF) latanopr ost (PF) 0.005 % Ophtha lmic (eye) drops active loteprednol etabonate lotepred nol etabonat e 294240 0.5 % Ophtha lmic (eye) drops ,susp ensio n active Simbrinza NULL 1% Ophtha lmic (eye) drops 01/16/20 19 suspend ed Simbrinza 9178055 1-0.2 % Ophtha lmic (eye) drops , suspe nsion active mupirocin mupiroci n 382137 2 % Topica l ointm ent 11/26/19 24 active Appl y to surg ical site twic e a day for 10-1 4 days days or unti l full y heal ed Flomax tamsulos in Oral active Tamsulosin HCl NULL .4 .4 cap daily 12/04/19 14 suspend ed Problems Problem Code Type Status Date of Diagnosis Da te of Resolution Neoplasm of uncertain behavior of skin (disorder) 88408548(SNO MED) Diagnosis active 04/23/2025 Actinic keratosis (disorder) (SN OMED) Diagnosis active 04/23/2025 History of neoplasm (situation) 767390009(SN OMED) Diagnosis active 04/23/2025 History of malignant neoplasm of skin (situation) 412673835(SN OMED) Diagnosis active 04/23/2025 Seborrheic keratosis (disorder) 265329433(SN OMED) Diagnosis active 04/23/2025 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) 614842083(SN OMED) Diagnosis active 04/23/2025 Melanocytic nevus of trunk (disorder) 554320202(SN OMED) Diagnosis active 04/23/2025 Hemangioma of skin and subcutaneous tissue (disorder) 819829225(SN OMED) Diagnosis active 04/23/2025 Disorder of pigmentation (disorder) 905631730(SN OMED) Diagnosis active 04/23/2025 Patient encounter status (finding) 310087153(SN OMED) Diagnosis active 04/23/2025 Actinic keratosis (disorder) (SN OMED) Diagnosis active 08/27/2024 History of neoplasm (situation) 713131527(SN OMED) Diagnosis active 08/27/2024 History of malignant neoplasm of skin (situation) 218009918(SN OMED) Diagnosis active 08/27/2024 Epidermoid cyst of skin (disorder) 904197327(SN OMED) Diagnosis active 08/27/2024 Seborrheic keratosis (disorder) 439926339(SN OMED) Diagnosis active 08/27/2024 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) 119017682(SN OMED) Diagnosis active 08/27/2024 Melanocytic nevus of trunk (disorder) 384161299(SN OMED) Diagnosis active 08/27/2024 Hemangioma of skin and subcutaneous tissue (disorder) 456482085(SN OMED) Diagnosis active 08/27/2024 Disorder of pigmentation (disorder) 928693711(SN OMED) Diagnosis active 08/27/2024 Patient encounter status (finding) 837387359(SN OMED) Diagnosis active 08/27/2024 Actinic keratosis (disorder) (SN OMED) Diagnosis active 04/24/2024 Neoplasm of uncertain behavior of skin (disorder) 40192279(SNO MED) Diagnosis active 04/24/2024 History of neoplasm (situation) 185686156(SN OMED) Diagnosis active 04/24/2024 History of malignant neoplasm of skin (situation) 131642101(SN OMED) Diagnosis active 04/24/2024 Epidermoid cyst of skin (disorder) 581582762(SN OMED) Diagnosis active 04/24/2024 Seborrheic keratosis (disorder) 230852124(SN OMED) Diagnosis active 04/24/2024 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) 252440962(SN OMED) Diagnosis active 04/24/2024 Melanocytic nevus of trunk (disorder) 505820860(SN OMED) Diagnosis active 04/24/2024 Hemangioma of skin and subcutaneous tissue (disorder) 386047980(SN OMED) Diagnosis active 04/24/2024 Disorder of pigmentation (disorder) 406965915(SN OMED) Diagnosis active 04/24/2024 Patient encounter status (finding) 546279490(SN OMED) Diagnosis active 04/24/2024 Surgical follow-up (finding) 357023916(SN OMED) Diagnosis active 12/06/2023 Basal cell carcinoma of face (disorder) 141472074(SN OMED) Diagnosis active 11/26/2023 Carcinoma of skin of head/neck (disorder) 530391338(SN OMED) Diagnosis active 10/30/2023 Basal cell carcinoma of upper extremity (disorder) 791113195(SN OMED) Diagnosis active 10/30/2023 Neoplasm of uncertain behavior of skin (disorder) 20495454(SNO MED) Diagnosis active 08/08/2023 Actinic keratosis (disorder) 201362141(SN OMED) Diagnosis active 08/08/2023 History of neoplasm (situation) 982550032(SN OMED) Diagnosis active 08/08/2023 History of malignant neoplasm of skin (situation) 162436474(SN OMED) Diagnosis active 08/08/2023 Epidermoid cyst of skin (disorder) 496132772(SN OMED) Diagnosis active 08/08/2023 Seborrheic keratosis (disorder) 511631528(SN OMED) Diagnosis active 08/08/2023 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) 135601461(SN OMED) Diagnosis active 08/08/2023 Melanocytic nevus of trunk (disorder) 552417377(SN OMED) Diagnosis active 08/08/2023 Hemangioma of skin and subcutaneous tissue (disorder) 313350082(SN OMED) Diagnosis active 08/08/2023 Disorder of pigmentation (disorder) 743173812(SN OMED) Diagnosis active 08/08/2023 Basal cell carcinoma of upper extremity (disorder) 462903670(SN OMED) Diagnosis active 03/29/2023 Basal cell carcinoma of truncal skin (disorder) 031282436(SN OMED) Diagnosis active 03/29/2023 Neoplasm of uncertain behavior of skin (disorder) 86123764(SNO MED) Diagnosis active 01/31/2023 Actinic keratosis (disorder) 144501312(SN OMED) Diagnosis active 01/31/2023 History of neoplasm (situation) 618112167(SN OMED) Diagnosis active 01/31/2023 History of malignant neoplasm of skin (situation) 287102570(SN OMED) Diagnosis active 01/31/2023 Epidermoid cyst of skin (disorder) 489456019(SN OMED) Diagnosis active 01/31/2023 Seborrheic keratosis (disorder) 681744374(SN OMED) Diagnosis active 01/31/2023 Benign neoplasm of peripheral nerve (disorder) 965610144(SN OMED) Diagnosis active 01/31/2023 Melanocytic nevus (disorder) 553403483(SN OMED) Diagnosis active 01/31/2023 Hemangioma of skin and subcutaneous tissue (disorder) 938988805(SN OMED) Diagnosis active 01/31/2023 Disorder of pigmentation (disorder) 064910100(SN OMED) Diagnosis active 01/31/2023 Neoplasm of uncertain behavior of skin (disorder) 02089504(SNO MED) Diagnosis active 09/21/2022 History of neoplasm (situation) 845902748(SN OMED) Diagnosis active 09/21/2022 History of malignant neoplasm of skin (situation) 457257927(SN OMED) Diagnosis active 09/21/2022 Seborrheic keratosis (disorder) 274169979(SN OMED) Diagnosis active 09/21/2022 Benign neoplasm of peripheral nerve (disorder) 220763324(SN OMED) Diagnosis active 09/21/2022 Melanocytic nevus (disorder) 147711758(SN OMED) Diagnosis active 09/21/2022 Disorder of pigmentation (disorder) 468857715(SN OMED) Diagnosis active 09/21/2022 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) 87620998(SNO MED) Diagnosis active 05/14/2022 Neoplasm of uncertain behavior of skin (disorder) 59600702(SNO MED) Diagnosis active 01/11/2022 Actinic keratosis (disorder) (SN OMED) Diagnosis active 01/11/2022 History of malignant neoplasm of skin (situation) 172874027(SN OMED) Diagnosis active 01/11/2022 Seborrheic keratosis (disorder) 268436267(SN OMED) Diagnosis active 01/11/2022 Benign neoplasm of peripheral nerve (disorder) 325113739(SN OMED) Diagnosis active 01/11/2022 Melanocytic nevus (disorder) 222480228(SN OMED) Diagnosis active 01/11/2022 Disorder of pigmentation (disorder) 136513887(SN OMED) Diagnosis active 01/11/2022 Basal cell carcinoma of upper extremity (disorder) 853432487(SN OMED) Diagnosis active 12/21/2020 Basal cell carcinoma of truncal skin (disorder) 936255954(SN OMED) Diagnosis active 12/21/2020 Neoplasm of uncertain behavior of skin (disorder) 90713999(SNO MED) Diagnosis active 10/25/2020 Actinic keratosis (disorder) (SN OMED) Diagnosis active 10/25/2020 Melanocytic nevus (disorder) 134308798(SN OMED) Diagnosis active 10/25/2020 Seborrheic keratosis (disorder) 707737488(SN OMED) Diagnosis active 10/25/2020 Benign neoplasm of peripheral nerve (disorder) 917328450(SN OMED) Diagnosis active 10/25/2020 Encounter for surgical aftercare following surgery on the skin and subcutaneous tissue Z48.817(ICD- 10) Diagnosis active 06/22/2019 Other follicular cysts of the skin and subcutaneous tissue L72.8(ICD-10 ) Diagnosis active 06/10/2019 Personal history of other malignant neoplasm of skin Z85.828(ICD- 10) Diagnosis active 04/02/2019 Actinic keratosis L57.0(ICD-10 ) Diagnosis active 04/02/2019 Epidermal cyst L72.0(ICD-10 ) Diagnosis active 04/02/2019 Other specified health status Z78.9(ICD-10 ) Diagnosis active 01/15/2019 Clinical finding (finding) 693927038(SN OMED) Diagnosis active 01/15/2019 Neoplasm of uncertain behavior of skin (disorder) 75892824(SNO MED) Diagnosis active 01/15/2019 Neoplasm of uncertain behavior of skin (disorder) 54368682(SNO MED) Diagnosis active 01/09/2016 Actinic keratosis (disorder) (SN OMED) Diagnosis active 10/10/2015 Solar lentigo (disorder) 48199391(SNO MED) Diagnosis active 06/03/2014 Actinic keratosis (disorder) (SN OMED) Diagnosis active 12/03/2013 History of clinical finding in subject (situation) 714322346(SN OMED) Problem active Benign prostatic hyperplasia (disorder) 380178724(SN OMED) Problem active Hearing loss (disorder) 07520797(SNO MED) Problem active Basal cell carcinoma of skin (disorder) 258243475(SN OMED) Problem active Squamous cell carcinoma (disorder) 846925115(SN OMED) Problem active Results No data Encounters Service provided at [facility], [address] [place] [address], [address], [place], [place] [id number]. Office phonenumber is [phone]. Office fax number is [phone]. 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)Benign Appearing Nevi (D22.5)Cedillo Angiomas (D18.01)Lentigines (L81.4)Skin Education (Z71.89)Neoplasm of Uncertain Behavior (D48.5) [facility] 04/23/2025 18:00:00 [place] [address] Reason For Referral No data Procedures Procedure Date Shave biopsy (procedure) 04/23/2025 12:0 0 am UTC Destruction of premalignant skin lesion (procedure) 04/23/2025 12:00 am UTC Destruction of premalignant skin lesion (procedure) 08/27/2024 12:00 am UTC Destruction of premalignant skin lesion (procedure) 04/24/2024 12:00 am UTC Removal of suture (procedure) 12/06/2023 12:00 am UTC Mohs surgery (procedure) 11/26/2023 12:0 0 am UTC Excision (procedure) 10/30/2023 12:00 am UTC Destruction of premalignant skin lesion (procedure) 08/08/2023 12:00 am UTC Shave biopsy (procedure) 08/08/2023 12:0 0 am UTC Tumor destruction (procedure) 03/29/2023 12:00 am UTC Shave biopsy (procedure) 01/31/2023 12:0 0 am UTC Cryotherapy of skin lesion with liquid n itrogen (procedure) 01/31/2023 12:00 am UTC Tumor destruction (procedure) 09/21/2022 12:00 am UTC Tumor destruction (procedure) 05/14/2022 12:00 am UTC Shave biopsy (procedure) 01/11/2022 12:0 0 am UTC Cryotherapy of skin lesion with liquid n itrogen (procedure) 01/11/2022 12:00 am UTC Excision (procedure) 12/21/2020 12:00 am UTC Cryotherapy of skin lesion with liquid n itrogen (procedure) 10/25/2020 12:00 am UTC Shave biopsy (procedure) 10/25/2020 12:0 0 am UTC Excision of melanoma (procedure) Surgical biopsy of skin (procedure) History of colostomy (situation) Documentation of past medical history (p rocedure) Documentation of past medical history (p rocedure) Excision of melanoma (procedure) History of colostomy (situation) Surgical biopsy of skin (procedure) Surgical biopsy of skin (procedure) History of colostomy (situation) Documentation of past medical history (p rocedure) Excision of melanoma (procedure) Documentation of past medical history (p rocedure) Excision of melanoma (procedure) History of colostomy (situation) Surgical biopsy of skin (procedure) Documentation of past medical history (p rocedure) History of colostomy (situation) Surgical biopsy of skin (procedure) Excision of melanoma (procedure) Surgical biopsy of skin (procedure) Documentation of past medical history (p rocedure) Excision of melanoma (procedure) History of colostomy (situation) Replacement of heart valve w ith mechanical valve prosthesis (procedure) Excision of melanoma (procedure) History of colostomy (situation) Surgical biopsy of skin (procedure) Documentation of past medical history (p rocedure) Surgical biopsy of skin (procedure) Replacement of heart valve w ith mechanical valve prosthesis (procedure) Documentation of past medical history (p rocedure) History of colostomy (situation) Excision of melanoma (procedure) History of colostomy (situation) Replacement of heart valve w ith mechanical valve prosthesis (procedure) Excision of melanoma (procedure) Surgical biopsy of skin (procedure) Documentation of past medical history (p rocedure) Excision of melanoma (procedure) Surgical biopsy of skin (procedure) Replacement of heart valve w ith mechanical valve prosthesis (procedure) History of colostomy (situation) Documentation of past medical history (p rocedure) Replacement of heart valve w ith mechanical valve prosthesis (procedure) Surgical biopsy of skin (procedure) History of colostomy (situation) Excision of melanoma (procedure) Documentation of past medical history (p rocedure) Excision of melanoma (procedure) Surgical biopsy of skin (procedure) Documentation of past medical history (p rocedure) Replacement of heart valve w ith mechanical valve prosthesis (procedure) History of colostomy (situation) Excision of melanoma (procedure) Replacement of heart valve w ith mechanical valve prosthesis (procedure) Surgical biopsy of skin (procedure) Documentation of past medical history (p rocedure) History of colostomy (situation) Surgical biopsy of skin (procedure) Documentation of past medical history (p rocedure) History of colostomy (situation) Replacement of heart valve w ith mechanical valve prosthesis (procedure) Excision of melanoma (procedure) History of colostomy (situation) Replacement of heart valve w ith mechanical valve prosthesis (procedure) Excision of melanoma (procedure) Surgical biopsy of skin (procedure) Documentation of past medical history (p rocedure) History of colostomy (situation) Excision of melanoma (procedure) Replacement of heart valve w ith mechanical valve prosthesis (procedure) Documentation of past medical history (p rocedure) Surgical biopsy of skin (procedure) Excision of melanoma (procedure) History of colostomy (situation) Replacement of heart valve w ith mechanical valve prosthesis (procedure) Surgical biopsy of skin (procedure) Documentation of past medical history (p rocedure) History of colostomy (situation) Excision of melanoma (procedure) Surgical biopsy of skin (procedure) Documentation of past medica l history (procedure) Pacemaker rostate surgery 03/2025 Replacement of heart valve w paula mechanical valve prosthesis (procedure) Aortic replacemnt Review Of Systems Provider reviewed on Apr 23, 2025.A complete review of systems was performed and was notable for hay fever, blurry vision, joint aches, anxiety, and depression.No Problems With Healing, No Problems With Scarring (hypertrophic Or Keloid), No Problems With Bleeding, No Immunosuppression, No Chest Pain, No Fever Or Chills, No Night Sweats, No Unintentional Weight Loss, No Thyroid Problems, No Sore Throat, No Abdominal Pain, No Bloody Stool, No Bloody Urine, No Muscle Weakness, No Neck Stiffness, No Headaches, No Seizures, No Shortness Of Breath, And No Wheezing. Assessment 1.Neoplasm of Uncertain BehaviorBiopsy by Shave Method: left medial inferior chest.2.Actinic KeratosesLiquid Nitrogen: right medial superior chest; left medial superior chest; right superior parietalscalp; left superior parietal scalp; Duration of freeze thaw-cycle (seconds) - 5; Number of freeze-thaw Cycles - 1 freeze-thaw cycle.3.History of Squamous Cell Carcinoma in situCounseling4.History ofBasal Cell CarcinomaCounseling5.Seborrheic KeratosesCounseling6.NeurofibromaCounseling7.Benign Appearing NeviCounseling8.Cedillo AngiomasCounseling9.[id number].Skin EducationCounseling Plan of Care Future visit for 12/03/2025 - Follow up in 8 months for: Skin Check Code Detail Instructions 555503 mupirocin 2 % topical ointment A pply to surgical site twice a day for 10- 14 days days or until fully healed Instructions * I counseled the patient regarding the following:Skin Care: Patients with a history of non-melanoma skin cancer should wear broad spectrum sunscreen and sun protective clothing.Expectations: Scars from excisional sites of non- melanoma skin cancers should be monitored for any recurrences.Contact Office if: If the patient notices discoloration or a bump arising from a previously stable scar or any new lesions that are not healing. * I counseled the patient regarding the following:Skin Care: Patients with a history of non-melanoma skin cancer should wear broad spectrum sunscreen and sun protective clothing.Expectations: Scars from excisional sites of non- melanoma skin cancers should be monitored for any recurrences.Contact Office if: If the patient notices discoloration or a bump arising from a previously stable scar or any new lesions that are not healing. * I counseled the patient regarding the following:Skin Care: Seborrheic Keratoses are benign. No treatment is necessary.Expectations: Seborrheic Keratoses are benign warty growths. Patients get more ofthem as they age. * I counseled the patient regarding the following:Skin care: Neurofibromas are benign. No further treatment is necessary.Expectations: Neurofibromas are benign nerve sheath cutaneous tumors. * I counseled the patient regarding the following:Contact Office if: Any moles change in size, shape or color; itch, burn or bleed.All nevi evaluated today appear benign. We discussed the ABCDE's of abnormal moles. Monthly self-skin exams recommended to monitor for any changes. * I counseled the patient regarding the following:Skin Care: Cedillo Angiomas can resolve with lasers or electrodesiccation.Expectations: Cedillo Angiomas are benign vascular growths. No treatment is necessary. * I counseled the patient regarding the following:Skin Care: Lentigines can resolve with broad spectrum sunscreen, sun avoidance, bleaching creams, retinoids, chemical peels and laser.Expectations: Lentigines are benign pigmented lesions that occur on sun-exposed and sun-damaged skin. They are easilytreatable.I recommended the following: Broad Spectrum Sunscreen SPF 30+ * I counseled the patient regarding the following:Sun screen (SPF 30 or greater) should be applied during peak UV exposure (between 10am and 2pm) and reapplied after exercise or swimming, and at least every 2 hours.Monitor skin regularly for changes and call for reevaluation of any areas that fail toheal, bleed, or stand out among the rest.I recommended the following: Broad Spectrum Sunscreen SPF 30+Self-Skin Exams Social History Code Activity Start Date End Date [id number] (SNOMED) Former smoker Sex male Sexual orientation Straight (Heterosexu al) Gender identity Unspecified Vital Signs No data
--- OUTSIDE RECORDS SUMMARY | 2025-04-27 19:46 | XMS_ITS | Patient Health Record ---
Author Organization [facility] Address [address] [place] [address] [place] [phone] Care Team Providers Care Tools And Parts Attendant Name Role Phone Russell Lopez Primary Care Provider Allergies Allergen (clinical drug ingredient) Drug/Non Drug Allergy documented on EMR Reaction Allergy Type Onset Date Status Opiates (uncoded) Nausea, Vomiting Allergy Active Results Component Value Reference Range Notes [facility] Informed Consent Fo Reviewed date:02/03/2025 06:39:45 PM Interpretation: Performing Lab:[facility] Sanchez, Anmol Malik, [address], [place], Phone - [phone], Director - [facility] Notes/Report: [facility] Informed Consent Form [facility] Informed Consent Form 02 Please Fax back to [phone]. Many states require laboratories to have documentation [...] of the sample when testing is complete. [facility] did not receive any documentation of informed consent for above mentioned patient and ordered tests. Please check the statement applicable to this patient and sign below so that [facility] may release the results for this patient. . [] I authorize and confirm patient consent for the above mentioned genetic test(s). . [] I have provided appropriate informed consent for the above mentioned test(s) and documentation of this consent is maintained in the patient record. . . Health care provider signature Da te . Printed name . Fax back to [facility] at [phone] . [facility] Reviewed date:07/24/2024 03:19:57 PM Interpretation: Performing Lab: Notes/Report: See Note [facility], a member of [employer] PROCEDURE: MRI of the lumbar spine without [...] Signed Date: 07/22/2024 10:38 ET Workstation ID: [id number] Transcribed By: Self Edit Transcribed Date: 07/22/2024 10:31 ET MR Lumbar Spine WO Reviewed date:07/27/2024 08:19:30 AM Interpretation: Performing Lab: Notes/Report: LP+Non-HDL Cholesterol-15361 5 Reviewed date:07/17/2024 02:28:23 PM Interpretation: Performing Lab:[facility] Greco, [address] [facility], Phone - [phone], Director - [employer] Notes/Report: Cholesterol, Total 145 100-199 mg/dL Triglycerides 129 0-149 mg/dL HDL Cholesterol 46 >39 mg/dL VLDL Cholesterol Jordan 23 5-40 mg/dL LDL Chol Calc (NIH) 76 0-99 mg/dL Non-HDL Cholesterol 99 0-129 mg/dL Comp. Metabolic Panel (14)-3 67851 Reviewed date:07/17/2024 02:28:23 PM Interpretation: Performing Lab:[facility] Greco, [address] [facility], [place], Phone - [phone], Director - [employer] Notes/Report: Glucose 101 70-99 [...] 0-40 IU/L ALT (SGPT) 22 0-44 IU/L B-Type Natriuretic Peptide-1 46726 Reviewed date:07/17/2024 02:28:23 PM Interpretation: Performing Lab:[facility] [address], Phone - [phone], Director - [facility] Notes/Report: B-Type Natriuretic Peptide 222.2 0.0-100.0 pg/m L [employer]ens ADVIA Centaur XP methodology Vitamin S94-670946 Reviewed date:02/03/2025 06:39:44 PM Interpretation: Performing Lab:[facility] [address], Phone - [phone], Director - [facility] Notes/Report: Test(s) [id number] was developed and its performance characteristics determined by [facility]. It has not been cleared or approved by the Food and Drug Administration. Vitamin B12 959 968-9930 pg/mL Urinalysis, Complete-207159 Reviewed date:02/03/2025 06:39:44 PM Interpretation: Performing Lab:[facility] [address], Phone - [phone], Director - [facility] Notes/Report: Test(s) 547498-[id number] was developed and its performance characteristics determined by [facility]. It has not been cleared or approved by the Food and Drug Administration. Test(s) 842102-c-ulz546 was developed and its performance characteristics determined by [facility]. It has not been cleared or approved by the Food and Drug Administration. Specific [place] 1.022 1.005-1.030 pH 5.5 5.0-7.5 Urine-Color Yellow [...] seen /lpf Bacteria None seen None seen/Few TSH-[id number] Reviewed date:02/03/2025 06:39:44 PM Interpretation: Performing Lab:[facility] [place], [address] [place] [address], [place], Phone - [phone], Director - [facility] Notes/Report: Test(s) 119144-q-[id number] was developed and its performance characteristics determined by [employer]. It has not been cleared or approved by the Food and Drug Administration. TSH 1.210 0.450-4.500 uIU/mL CBC With Differential/Platel et-396682 Reviewed date:02/03/2025 06:39:44 PM Interpretation: Performing Lab:[facility] [place], [address] [place] [address], [place], Phone - [phone], Director - [facility] Notes/Report: Test(s) [id number]-[id number] was developed and its performance characteristics determined by [employer]. It has not been cleared or approved [...] Immature Grans (Abs) 0.0 0.0-0.1 x10E3/uL Prostate-Specific Ag-986989 Reviewed date:02/03/2025 06:39:44 PM Interpretation: Performing Lab:[facility] [place], [address] [place] [address], Phone - [phone], Director - [facility] Notes/Report: Test(s) [id number]-[id number] was developed and its performance characteristics determined by [facility]. It has not been cleared or approved by the Food and Drug Administration. Prostate Specific Ag 1.6 0.0-4.0 ng/mL Nav ECLIA methodology. . According to the [place] [employer], Serum PSA should decrease and [...] or absence of malignant disease. Vitamin D, 07-Sdylnpt-004271 Reviewed date:02/03/2025 06:39:44 PM Interpretation: Performing Lab:[facility] [address], [place], Phone - [phone], Director - [facility] Notes/Report: Test(s) [id number]-[id number] was developed and its performance characteristics determined by [employer]. It has not been cleared or approved by the Food and Drug Administration. Vitamin D, 25-Hydroxy 45.6 30.0-100.0 ng/mL Vitamin D deficiency has been defined by the Sharps of Medicine and an Endocrine Society practice guideline as a level of serum 25-OH vitamin D less than 20 ng/mL (1,2). The Endocrine Society went on to further define vitamin D insufficiency as a level between 21 and 29 ng/mL (2). 1. IOM ([employer]arps of Medicine). 2010. Dietary reference intakes for calcium and D. [place]: The National Academies Press. 2. Tommie MF, Neelima NC, Etelvina REAVES, et al. Evaluation, treatment, and prevention of vitamin D deficiency: an Endocrine Society clinical practice guideline. JCEM. 2010; 96(7):1911-30. Comp. Metabolic Panel (14)-3 91775 Reviewed date:02/03/2025 06:39:44 PM Interpretation: Performing Lab:[facility] [place], [address] [facility], Phone - [phone], Director - [facility] Notes/Report: Test(s) [id number] was developed and its performance characteristics determined by [employer]. It has not been cleared or approved [...] IU/L ALT (SGPT) 23 0-44 IU/L LP+Non-HDL Cholesterol-55691 5 Reviewed date:02/03/2025 06:39:44 PM Interpretation: Performing Lab:[facility] [place], [address] [facility], [place], Phone - [phone], Director - [facility] Notes/Report: Test(s) [id number] was developed and its performance characteristics determined by [employer]. It has not been cleared or approved by the Food and Drug Administration. Cholesterol, Total 154 100-199 mg/dL Triglycerides 72 0-149 mg/dL HDL Cholesterol 47 >39 mg/dL VLDL Cholesterol Jordan 14 5-40 mg/dL LDL Chol Calc ([facility]) 93 0-99 mg/dL Non-HDL Cholesterol 107 0-129 mg/dL APOE Alzheimer's Risk-967588 Reviewed date:02/03/2025 06:39:44 PM Interpretation: Performing Lab:[facility] [place], [address], [place], Phone - [phone], Director - [facility] Notes/Report: Test(s) 207513-w-[id number] was developed and its performance characteristics determined by [employer]. It has not been cleared or approved by the Food and Drug Administration. Methodology: Patient DNA is assayed for the APOE genotype by PCR amplification of a specific region in exon 4 of the APOE gene followed by digestion with restriction enzyme Java Sdet I and separation of fragments by polyacrylamide [...] For inquiries or genetic consultation, please call [facility] at . Comment: INFORMATION ABOUT THE APOE [...] the APOE4 variant and by approximately 10 ux48-kmvb for individuals with two copies of this [...] developed and its performance characteristics determined by [employer]. It has not been cleared or approved by the Food and Drug Administration. The FDA has determined that such clearance or approval is not necessary. REFERENCES Efraín A et al. Sex modifies the APOE-related risk of developing Alzheimer disease. Annal Neurol 2014;75(4):563-573 Favio MATA. Alzheimer Disease Overview. GeneReviews (internet). Aysha SUTHERLAND et al., editors. [facility]: [facility], [place], [place]. Last revised 2014. Khushi JS et al. Genetic counseling and testing for Alzheimer disease: Joint practice guidelines of the [place] College [employer] Genetics and the National Society of Genetic Counselors. Ann in Med 2011;136)597-605. Fidel STEWART. Apolipoprotein E: Implications for AD neurobiology, epidemiology and risk assessment. Neurobiology of Aging 2011;32:778-790 Phosphorylated Tau 217 (pTau -217) Reviewed date:02/03/2025 06:39:44 PM Interpretation: Performing Lab:[facility] [place], [address], [place], Phone - [phone], Director - [facility] Notes/Report: Test(s) [id number] was developed and its performance characteristics determined by [facility]. It has not been cleared or approved by the Food and Drug Administration. p-bly694 0.14 0.00-0.18 pg/mL Clinical cutoff value was established using samples from a patient cohort characterized with amyloid PET data. A p-lgw856 value of >0.18 is a reported surrogate marker for beta amyloid pathology, and can be used to facilitate biological identification of Alzheimer's disease (1). p-hmt390 has also been used in clinical trials to monitor patients on anti-amyloid therapy (2,3). Test performed by [employer] chemiluminescent enzyme immunoassay (CLEIA). Values obtained with different methods cannot be used interchangeably. The validated limit of quantification is 0.06 pg/mL. Assay detection limit is 0.03 pg/mL. Footnotes 1. Silvio Laird, et al. Diagnostic Accuracy of a Plasma Phosphorylated Tau 217 Immunoassay for Alzheimer Disease Pathology. ANNE neurology (2023). 2. Silvio Laird, et al. Differential roles of A42/40, p-ahf931 and p-myq089 for Alzheimer's trial selection and disease monitoring. Nature medicine 28.12 (2021): 3373-2208. 3. Mis MORLEY, Sandhya M, Ambika SC, et al. Association of Donanemab Treatment With Exploratory Plasma Biomarkers in Early Symptomatic Alzheimer Disease: A Secondary Analysis of the TRAILBLAZER-ALZ Randomized Clinical Trial . ANNE Neurol. 2021;79(12):4666-6617. Reason For Referral No Information Medications Medication SIG (Take, Route, Frequency, Duration) Notes Start Date End Date Status ARIPiprazole 10 MG TAKE 1 TABLET BY TRINA TH EVERY DAY; Duration: 90 Active Aspirin 81 81 MG 1 tablet Orally Once a day Not-Taking traZODone HCl 50 MG 1 tablet Orally At bedtime; Duration: 90 days Active Simbrinza 1-0.2 % PLACE 1 DROP INTO TH E LEFT EYE 2 (TWO) TIMES A DAY. Ophthalmic; Duration: 60 Not-Taking Tamsulosin HCl 0.4 MG TAKE ONE CAPSULE B Y MOUTH ONCE DAILY; Duration: 90 Active Omeprazole 20 MG TAKE 1 CAPSULE BY [facility] 30 MINUTES BEFORE THE MORNING MEAL; Duration: [...] NIGHTLY AT BEDTIME. Ophthalmic; Duration: 90 [facility] Formula - as directed Orally [...] 03/18/2020 Administered Influenza (Fluad) Unknown 06/18/2021 Administered TUCKC-33-Kiuvbo Vaccine Unknown 09/16/2020 Administered PRXJA-91-Gtmzfs Vaccine Unknown 10/07/2020 Administered TAZME-70-Balowba Vaccine Unknown 06/18/2021 Administered COVID-19 Moderna BiValent [...] Status Risk Notes Problem Vitamin D deficiency (27091518) Vitamin D deficiency, unspecified (E55.9) Active confirmed Problem Mixed hyperlipidemia (214535630) Mixed hyperlipidemia (E78.2) Active confirmed Problem Moderate major depression, single episode (07423075) Major depressive disorder, single episode, moderate (F32.1) Active confirmed Problem Brachial plexus disorder (2804335) Brachial plexus disorders (G54.0) Active confirmed Problem 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) Fuchs' heterochromic cyclitis, 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 Problem Sensorineural hearing loss of bilateral ears (disorder) (794170744) Sensorineural hearing loss, bilateral (H90.3) Active confirmed Problem Complete atrioventricular block (31233995) Atrioventricular block, complete (I44.2) Active confirmed Problem Chronic diastolic heart failure (468506649) Chronic diastolic (congestive) heart failure (I50.32) Active confirmed Problem Gastro-esophageal reflux disease without esophagitis (916312522) Gastro-esophageal reflux disease without esophagitis (K21.9) Active confirmed Problem Chondromalacia of patella (29429471) Chondromalacia patellae, 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) Active confirmed Problem Congenital stenosis of aortic valve (81595518) 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) Active confirmed Problem Corneal transplant (84866047) Corneal transplant status (Z94.7) Active confirmed Problem Cardiac pacemaker in situ (110166051) Presence of cardiac pacemaker (Z95.0) Active confirmed Problem Finding of hearing aid (423252938) Presence of external hearing-aid (Z97.4) Active confirmed Problem Benign prostatic hypertrophy without outflow obstruction (117767277) Benign prostatic hyperplasia without lower urinary tract symptoms (N40.0) Active confirmed Problem Spinal stenosis of lumbar region (29558529) Spinal stenosis, lumbar region without neurogenic claudication (M48.061) Active confirmed Problem Mild cognitive disorder (323571522) Mild cognitive impairment of uncertain or unknown [...] Location Date Provider Diagnosis Russell Lopez MD [address] [id number] 07/16/2024 Russell Lopez Major depressive disorder, single episode, moderate F32.1 ; Chronic diastolic (congestive) heart failure I50.32 ; Mixed hyperlipidemia E78.2 ; Atrioventricular block, complete I44.2 ; Presence of cardiac pacemaker Z95.0 ; Spinal stenosis, lumbar region without neurogenic claudication M48.061 ; Vitamin D deficiency, unspecified E55.9 and Brachial plexus disorders G54.0 Russell Lopez MD [address] [id number] 01/21/2025 Russell Lopez Encounter for genera l [...] of external hearing-aid Z97.4 Russell Lopez MD [address] [id number] 07/24/2024 Russell Lopez MD [address] [id number] 02/03/2025 Russell Lopez MD [address] [id number] 08/31/2024 Russell Lpoez MD [address] [id number] 10/13/2024 Russell Lopez MD [address] [id number] 03/17/2025 Russell Lopez Assessments Encounter Date Diagnosis (ICD [...] Stable post valve replacement. Recheck status 01/21/2025 Major depressive disorder, single episode, moderate (ICD-10 - F32.1) He feels his mood is doing okay and he is doing well with current medical therapy. Continue same. 01/21/2025 Encounter for general adult medical examination without abnormal findings (ICD-10 - Z00.00) General healthcare up-to-date. Check routine labs. He already has a healthcare proxy on file 01/21/2025 Chronic diastolic (congestive) heart failure (ICD-10 [...] LDL less than 70. Can recheck status 01/21/2025 Atrioventricular block, complete (ICD-10 - I44.2) Stable unchanged. He has pacemaker in place 07/16/2024 Atrioventricular block, complete (ICD-10 - I44.2) Stable and unchanged. Treated by pacemaker placement 01/21/2025 Presence of cardiac pacemaker (ICD-10 - Z95.0) Stable and unchanged. 07/16/2024 Presence of cardiac pacemaker (ICD-10 - Z95.0) Stable and unchanged. 07/16/2024 Spinal stenosis, lumbar region without neurogenic claudication (ICD-10 - M48.061) He reports that for some time now he has been having knee pain when he is asleep. About shelter through the night he awakens with bilateral [...] hearing-aid (ICD-10 - Z97.4) Stable and unchanged 01/21/2025 Other This note was created with [...] QNT 01/09/20 Next Appt Details Provider Name:Russell John , 07/22/2025 01:30:00 PM, [address] [place] [address], [phone], Provider Name:Russell John , 02/09/2026 01:00:00 PM, [address] [place] [address], [phone], Insurance Providers Payer Name Payer Address Payer Phone Subscriber Number Group Number Insured Name Patient Relationship to Insured Coverage Start Date Coverage End Date MEDICARE [address] [place] [phone] [id number] Joel Martinez Self - patient is the insured [facility] [address] [place] [address] [id number] Joel Martinez Self - patient is the [...]
--- OUTSIDE RECORDS SUMMARY | 2025-04-27 19:47 | XMS_ITS | Clinical Summary ---
Author Organization [facility] Address [address] [place] [phone] Phone Care Team Providers Care Concrete Pipe Making Machine Operator Name Role Phone Brooks Lopez MD Primary Care Provider [phone] Allergies Active Allergy Reactions Criticality Noted Date Comments Hydrocodone Nausea and/or Vomiting 03/18/2025 Meperidine Nausea and/or Vomiting 03/18/2025 Opioids - Morphine Analogues Other (See Comments) 11/24/2010 body ~shuts down~ Other Nausea And Vomiting 01/06/2024 Other Reaction(s): Seasonal allergic rhinitis Oxycodone Nausea and/or Vomiting 03/18/2025 Phs Other Free Text-See Phs Viewer 06/08/2010 General anesthesia Medications tamsulosin (FLOMAX) 0.4 mg Cp24 TAKE ONE CAPSULE BY MOUTH 30 MINUTES AFTER SAME MEAL EVERY DAY 3 06/06/2016 Active traZODone (DESYREL) 50 MG tablet Take 50 mg by mouth nightly at bedtime as needed. 07/22/2020 Active ARIPiprazole (ABILIFY) 10 MG tablet 1 tablet Orally Once a day Active terazosin (HYTRIN) 5 MG capsule Take 5 mg by mouth. 10/09/2023 Active escitalopram oxalate (LEXAPRO) 10 MG tablet TAKE 1 TABLET BY MOUTH EVERY DAY FOR 30 DAYS for 90 Active loteprednol (LOTEMAX) 0.5 % ophthalmic suspensionIndic ations:Disorder of corneal graft Place 1 drop into the left eye daily. Allow for spillage. 10 mL 4 09/01/2024 Active carboxymethylce llulose (REFRESH TEARS) 0.5 % Drop Apply to eye. Tries to use Q2-4H OU 03/04/2025 Active vit C/E/zinc ox/michelet/lut/stefanie x (ICAPS AREDS2 ORAL) Take by mouth. 02/01/2022 Active brimonidine (ALPHAGAN) 0.2 % ophthalmic solution Place 1 drop into the left eye 2 (two) times a day. 20 mL 4 03/18/2025 Active dorzolamide (TRUSOPT) 2 % ophthalmic solution Place 1 drop into the left eye 2 (two) times a day. 20 mL 4 03/18/2025 Active Active Problems Problem Noted Date Diagnosed [...] Encounters Date Type Department Care Team Description 03/18/2025 9:45 AM EDT Office Visit [facility] [place] [address] [place] [address] Bandar Clark MD, PhD Primary open angle glaucoma of left eye, moderate stage (Primary Dx); Open angle with borderline findings and high glaucoma risk in right eye 03/04/2025 Telephone [facility] [address] [place] [address] Bandar Clark MD, PhD from Last 3 Months Family History Medical [...] Upcoming Encounters Date Type Department Care Team ([facility] st Contact Info) Description 10/28/2025 1:45 PM EDT Procedure visit [facility] in [address] [address] 10/28/2025 2:30 PM EDT Office Visit [facility] in [address] [address] Bandar Clark MD, PhD [address] [place] [phone] [email or web address] 11/26/2025 1:15 PM EDT Office Visit [facility] in [address] [address] Kofi Boles MD [address] [place] [phone] 01/28/2026 12:30 PM EDT Office Visit [facility] in [address] [address] Chandrakant Rodriguez MD, MPH [address] [place] [phone] [email or web address] 01/28/2026 12:45 PM EDT Procedure visit [facility] in [address] [address] Health Maintenance Due Date Last Done Comments LIPID PANEL 1946 DEPRESSION SCREENING 1958 SMOKING Hx and SMOKELESS TOBACCO SCREENING 1959 HEPATITIS C SCREENING 1964 ZOSTER VACCINES (1 of 2) 1996 PNEUMOCOCCAL VACCINES (50+ years) (2 of 2 - PPSV23) 06/27/2020 06/27/2019, 05/17/2017 RSV VACCINE (1 - 1-dose 75+ series) 2021 INFLUENZA VACCINE (#1) 2025 4, 03/01/2023, 06/18/2021, Additional history exists COVID-19 VACCINE ( - season) 2025 06/18/2021, 10/07/2020, 09/16/2020 Adult Td,Tdap Booster 12/20/2030 [...] Procedure Name Priority Date/Time Associated Diagnosis Comments OPTIC DISC PHOTOS - OU - BOTH EYES Routine 03/18/2025 11:34 AM EDT Primary open angle glaucoma of left eye, moderate stage Open angle with borderline findings and high glaucoma risk in right eye from Last 3 Months Results * Optic Disc Photos - OU - Both Eyes (03/18/2025 11:34 AM EDT) Anatomical Region Laterality Modality Head Photography Other Narrative 03/18/2025 2:19 PM EDT Testing performed by: ko. Assistant Account Manager Comments: See FORUM. Notes Very blurry view OD, very light sensitive OD only. I, Vin Clark MD PhD, have reviewed the disc photos and found that the optic discs on the photos appear consistent with how I have described them on today's exam. us Bandar Clark MD, PhD OPHTHALMOLOGY IMAGING Final Result from Last 3 Months Insurance MEDIC[facility] PART A & [facility] SUPPLE[facility] MEDICARE PART A & B [facility] MEDICARE SUPPLEMENT MEDICARE PART A & B [facility] MEDICARE SUPPLEMENT MEDICARE PART A & B [facility] EXTENSION MEDICARE SUPPLEMENT MEDICARE PART A & B [facility] MEDICARE SUPPLEMENT MEDICARE PART A & B [employer] MEDICARE SUPPLEMENT MEDICARE PART A & B [employer] MEDICARE SUPPLEMENT MEDICARE PART A & B [facility] MEDICARE SUPPLEMENT MEDICARE PART A & B [facility] MEDICARE SUPPLEMENT MEDICARE PART A & B [facility] MEDICARE SUPPLEMENT MEDICARE PART A & B [facility] MEDICARE SUPPLEMENT Care Teams Concrete Pipe Making Machine Operator Relationship Specialty Start Date End Date Brooks Lopez MD [address] [place] [phone] [email or web address] - General Internal Medicine 07/30/19 Additional Source Comments The information contained in this document represents components of the legal health record. It is not the complete legal health record.[facility]
--- OUTSIDE RECORDS SUMMARY | 2025-04-27 19:47 | XMS_ITS | Patient Health Record ---
[facility] [place] Address [address] [place] [address] Care Team Providers Care Electric Furnace Operator Name Role Phone Michael Stauffer MD Primary Care Provider Les Hernandez Unavailable [phone] Allergies Allergen (clinical drug ingredient) Drug/Non Drug [...] Disorder of joint of ankle and/or foot (351935400) Arthritis - Degenerative (719.97) Active confirmed Problem Hammer toe (262049032) Hammer toe (735.4) Active confirmed Problem Congenital pes planus (77490201) Flat Foot, Congenital (754.61) Active confirmed Problem Ingrowing nail (015180252) Ingrowing Nail (703.0) Active confirmed Problem Pain in limb (70023752) Pain in Limb (729.5) Active confirmed Plan Of Treatment Pending Test Test Name Order Date [id number] Plate 11/12/2011 Insurance Providers Payer Name Payer Address Payer Phone Subscriber Number Group Number Insured Name Patient Relationship to Insured Coverage Start Date Coverage End Date Medicare [employer] [address] [place] [address] [phone] [id number] Joel Martinez Self - patient is the insured [facility] [address] [place] [address] [id number] Joel Martinez Self - patient is the insured Medical (General) History Medical History History ICD Code back, hip, knee pain measles Surgical History Surgery Date(Month/Year) [facility] 1989
--- OUTSIDE RECORDS SUMMARY | 2025-04-27 19:47 | XMS_ITS | Clinical Summary ---
Author Organization [facility] Address [address] [place] [address] Phone Care Team Providers Care Staff Sonographer Name Role Phone Physician, Pcp Unknown Primary [...] Health Screening 07/20/2024 COVID-19 Vaccine ( season) 2025 04/25/2024, 04/09/2023, 06/17/2022, Additional history exists Influenza [...] complete this topic Insurance MEDICARE Care Teams Staff Sonographer Relationship Specialty Start Date End Date Physician, Pcp Unknown PCP - General 07/23/24
== END 2025-04-27 15:49 | disposition home or self-care (01) ==
LOC: HO.HUSH 15:23
PROVIDERS: PCP Internal Medicine; Visit Provider Urology
DX: N40.1 Benign prostatic hyperplasia with lower urinary tract symptoms (principal); R35.1 Nocturia; N13.8 Other obstructive and reflux uropathy
CPT/HCPCS: 99024

== ENCOUNTER → 2025-04-27 15:22 | Outpatient (BNVA) | payer MEDICARE, OTHER, SELFPAY ==
[2025-02-18 14:07] VITALS: BP 116/70; BP 128/70
== END ==
PROVIDERS: PCP Internal Medicine; Visit Provider Urology
DX: R35.1 Nocturia (principal); N40.1 Benign prostatic hyperplasia with lower urinary tract symptoms; N13.8 Other obstructive and reflux uropathy; Z48.816 Encounter for surgical aftercare following surgery on the genitourinary system
CPT/HCPCS: 99212